=== PATIENT | female | born 1940 | race Caucasian/White ===

== ENCOUNTER 2016-11-27 10:09 | Inpatient (IN) | payer OTHER ==
[~2016-11-27] VITALS: Ht 172.7 cm; Wt 72.0 kg
[~2016-11-27 10:09] MED LIST: ACET-749 PO; ALBU1AER9 INH; CYAN10005 PO; FLUT0.15 NAE; FLVHFA110 INH; HYDR25TA4 PO; MAGN250T3 PO; METO25TA3 PO; OLAN-111 PO; SIME1CHW17 PO; ZINC50TA36 PO
--- NOTE | 2016-11-27 10:33 | EMERGENCY ROOM VISIT NOTE ---
History Report prepared by Conor: Mario Melchor Under the Supervision of: Dr. Kevin Molina D.O. First contact with patient: 10:12 Stated Complaint: FALL History of Present Illness The patient is a 76 year old female who presents to the Emergency Room via EMS with complaints of persistent upper back pain secondary to fall starting a few minutes prior to arrival. She rolled over and fell down the bed in between the night stand and bed. Since then, she has been having back pain. The patient has been unable ambulate as normal. She currently rates a pain intensity of 9/10. She denies fevers, chills, chest pain, or any other complaints. The patient had another fall 3 days ago. She currently has a UTI. She also has a pacemaker. As per family member, her tetanus shot is not up-to-date. Source of History: patient, family Onset: a few minutes prior to arrival Position: back (upper) Symptom Intensity: 9/10 Timing: other (persistent) Associated Symptoms: No chest pain, No chills, No fevers Review of Systems See HPI for pertinent positives and negatives. A total of 10 systems reviewed and were otherwise negative. Past Medical & Surgical Medical Problems: (1) AAA (abdominal aortic aneurysm) (2) Benzodiazepine withdrawal (3) Left flank pain (4) Thoracic aortic aneurysm (5) UTI (urinary tract infection) Family History Patient reports no known family medical history. Social History Smoking Status: Former Smoker Alcohol Use: none Marital Status: Housing Status: lives with family Occupation Status: retired Current/Historical Medications Scheduled Alprazolam (Xanax), 1 MG PO TID Amlodipine (Norvasc), 10 MG PO DAILY Aspirin (Aspirin Chewable), 81 MG PO DAILY Clopidogrel (Plavix), 75 MG PO DAILY Cyanocobalamin (Vitamin B-12), 1,000 MCG PO DAILY Donepezil Hydrochloride (Donepezil Hcl), 1 TAB PO HS Famotidine (Pepcid), 20 MG PO BID Gabapentin (Neurontin), 100 MG PO HS Hydrochlorothiazide (Hctz), 12.5 MG PO DAILY Memantine (Namenda), 5 MG PO DAILY Metoprolol Succinate (Toprol Xl), 25 MG PO BID Mirtazapine (Remeron), 15 MG PO HS Olanzapine (Zyprexa Zydis Odt), 5 MG PO DAILY Oxycodone Immediate Rel Tab (Roxicodone Ir), 5 MG PO Q6H Pravastatin Sodium (Pravachol), 1 TAB PO DAILY Senna/Docusate Sod (Senokot S), 2 TAB PO HS Scheduled PRN Acetaminophen (Tylenol), 500 MG PO UD PRN for Pain Albuterol Sulfate (Proair Respiclick), 2 PUFFS INH Q4 PRN for SOB/Wheezing Lactulose (Chronulac), 5 ML PO for Constipation Allergies Coded Allergies: No Known Allergies (Unverified , 11/27/16) Physical Exam Vital Signs Date Time Temp Pulse Resp B/P Pulse Ox O2 Delivery O2 Flow Rate FiO2 11/27/16 13:44 73 18 133/72 93 Nasal Cannula 2.0 11/27/16 13:40 72 11/27/16 11:50 72 22 132/72 94 Nasal Cannula 2.0 11/27/16 11:27 73 11/27/16 10:18 36.7 80 18 140/63 87 Room Air Physical Exam GENERAL: Patient is well appearing and in no acute distress. HEENT: No acute trauma, normocephalic atraumatic, mucous membranes moist, no nasal congestion, no scleral icterus. Bilateral conjunctival injection. NECK: No stridor, no adenopathy, no meningismus, trachea is midline. LUNGS: No dyspnea. Clear to auscultation and equal bilaterally. No wheeze, no rhonchi. HEART: Regular rate and rhythm. No murmurs, rubs, gallops appreciated. ABDOMEN: Soft, nontender, bowel sounds positive, no masses appreciated, no peritonitis. BACK: No midline tenderness, no CVA tenderness EXTREMITIES: Normal motion all extremities, no tenderness with direct palpation , no cyanosis, no edema. NEUROLOGIC: Alert and oriented, no acute motor or sensory deficits, no focal weakness, cranial nerves grossly intact. SKIN: No rash, no jaundice, no diaphoresis. Medical Decision & Procedures ER Provider Diagnostic Interpretation: X ray results and stated below per my interpretation and radiologist interpretation. CHEST ONE VIEW PORTABLE CLINICAL HISTORY: hypoxia COMPARISON STUDY: 04/26/2016 FINDINGS: The cardiac and mediastinal contours remain stable. There is a left sided dual chamber central venous pacemaker present. There are postsurgical changes of midline sternotomy. There is stable dilatation of the descending thoracic aorta. There is no focal pulmonary consolidation. There is no overt failure. There are no pleural effusions.[ IMPRESSION: 1. Stable aortic dilatation. 2. No evidence of focal pulmonary consolidation. No evidence of overt failure. Electronically signed by: Gaudencio Craig M.D. 11/27/2016 11:22 AM Dictated Date/Time: 11/27/2016 11:[address] results and stated below per my review and radiologist interpretation: CT ANGIOGRAPHY THE CHEST WITHOUT AND WITH CONTRAST CLINICAL HISTORY: Chest pain status post trauma. Known thoracic aneurysm. COMPARISON STUDY: Chest x-ray dated 11/27/2016 FINDINGS: Unenhanced images were obtained to the thorax. Patient was then scanned in a dynamic helical fashion during intravenous administration of 92 cc Optiray 320. SPECT imaging was performed. The thyroid gland is unremarkable in appearance. There are mildly enlarged mediastinal lymph nodes measuring up to 12 mm in diameter. There is no evidence of hilar adenopathy. There are no pulmonary artery filling defects to indicate acute pulmonary embolism. The patient appears be status post a prior aortic aneurysm repair. The a sitting thoracic aortic measures 37 mm. The descending thoracic aorta measures 41 mm in maximal diameter. There are intimal flaps to indicate acute or dissection. Within the abdomen, there is mural thrombus with plaque ulceration. There are no pleural effusions. There is no pneumothorax. There is pulmonary emphysema. There is no focal pulmonary consolidation. There are tree-in-bud opacities within the periphery of the right middle lobe, likely postinflammatory. There are age-indeterminate fractures of the left anterior second through fourth ribs. IMPRESSION: 1. Age-indeterminate nondisplaced fractures of the left second through fourth ribs 2. No evidence of pneumothorax 3. No evidence of mediastinal hematoma 4. 41 mm aneurysm of the thoracic aorta. No evidence of dissection 5. Mildly enlarged mediastinal lymph nodes Electronically signed by: Gaudencio Craig M.D. 11/27/2016 12:54 PM Dictated Date/Time: 11/27/2016 12:[address] OF THE CERVICAL SPINE CLINICAL HISTORY: Neck pain status post trauma COMPARISON STUDY: No previous studies for comparison. CT DOSE: TECHNIQUE: CT scan of the cervical spine was performed from the skull base to the thoracic inlet. Images are reviewed in the axial, sagittal, and coronal planes. IV contrast was not administered for this examination. FINDINGS: The visualized portions of the lung apices reveal no evidence of pneumothorax. The prevertebral soft tissues are normal. No fractures or subluxations are visualized. There are multilevel degenerative changes IMPRESSION: No evidence of acute fracture or traumatic subluxation. Electronically signed by: Gaudencio Craig M.D. 11/27/2016 12:41 PM Dictated Date/Time: 11/27/2016 12:[address] HEAD WITHOUT CONTRAST (CT) CLINICAL HISTORY: Head pain status post head trauma COMPARISON STUDY: No previous studies for comparison. TECHNIQUE: Axial CT of the brain is performed from the vertex to the skull base. IV contrast was not administered for this examination. CT DOSE: 1521.48 mGy.cm FINDINGS: No intra or extra-axial mass lesions are visualized. There is no CT evidence of acute cortical infarction. There is no evidence of midline shift. There is no acute hemorrhage. No calvarial fractures are visualized. There are patchy white matter hypodensities likely on a small vessel basis. There is mild ventricular prominence, likely secondary to volume loss. There is no evidence of acute sinusitis IMPRESSION: No acute intracranial findings Electronically signed by: Gaudencio Craig M.D. 11/27/2016 12:40 PM Dictated Date/Time: 11/27/2016 12:[address] THORACIC SPINE WITHOUT CT DOSE: CLINICAL HISTORY: Thoracic spine pain status post trauma TECHNIQUE: Helical images were acquired in transverse plane. Sagittal and coronal reformatted images were acquired. COMPARISON STUDY: None. FINDINGS: There is aneurysmal dilatation of the descending thoracic aorta (41 mm). No fractures are visualized. There are no traumatic subluxations. No paraspinal masses are evident. There is no pneumothorax. IMPRESSION: 1. No acute fractures or traumatic subluxations 2. Dilatation of the descending thoracic aorta 3. Mildly enlarged mediastinal lymph nodes Electronically signed by: Gaudencio Cragi M.D. 11/27/2016 1:04 PM Dictated Date/Time: 11/27/2016 1:01 PM Laboratory Results 11/27/16 11:20 Red Blood Count 5.04, Mean Corpuscular Volume 83.9, Mean Corpuscular Hemoglobin 27.8, Mean Corpuscular Hemoglobin Concent 33.1, Mean Platelet Volume 9.6, Neutrophils (%) (Auto) 64.5, Lymphocytes (%) (Auto) 22.5, Monocytes (%) (Auto) 10.1, Eosinophils (%) (Auto) 2.0, Basophils (%) (Auto) 0.5, Neutrophils # (Auto ) 6.51, Lymphocytes # (Auto) 2.27, Monocytes # (Auto) 1.02, Eosinophils # (Auto ) 0.20, Basophils # (Auto) 0.05 11/27/16 11:20 Test 11/27/16 10:34 11/27/16 11:20 11/27/16 12:50 Bedside Blood Gas pH (LAB) 7.43 (7.35-7.45) Bedside Blood Gas pCO2 (LAB) 44 mmHg (35-46) Bedside Blood Gas pO2 (LAB) 49 mmHg (80-95) Bedside Blood Gas HCO3 (LAB) 29 meq/L (19-24) Bedside Blood Gas Total CO2 31 mEq/l (24-31) Bedside Blood Gas Base Excess (LAB) 5.0 meq/L (-9-1.8) Bedside Blood Gas O2 Saturation 85.0 % (90-95) White Blood Count 10.09 K/uL (4.8-10.8) Red Blood Count 5.04 M/uL (4.2-5.4) Hemoglobin 14.0 g/dL (12.0-16.0) Hematocrit 42.3 % (37-47) Mean Corpuscular Volume 83.9 fL (80-100) Mean Corpuscular Hemoglobin 27.8 pg (25-34) Mean Corpuscular Hemoglobin Concent 33.1 g/dl (32-36) Platelet Count 298 K/uL (130-400) Mean Platelet Volume 9.6 fL (7.4-10.4) Neutrophils (%) (Auto) 64.5 % Lymphocytes (%) (Auto) 22.5 % Monocytes (%) (Auto) 10.1 % Eosinophils (%) (Auto) 2.0 % Basophils (%) (Auto) 0.5 % Neutrophils # (Auto) 6.51 K/uL (1.4-6.5) Lymphocytes # (Auto) 2.27 K/uL (1.2-3.4) Monocytes # (Auto) 1.02 K/uL (0.11-0.59) Eosinophils # (Auto) 0.20 K/uL (0-0.5) Basophils # (Auto) 0.05 K/uL (0-0.2) RDW Standard Deviation 43.7 fL (36.4-46.3) RDW Coefficient of Variation 14.2 % (11.5-14.5) Immature Granulocyte % (Auto) 0.4 % Immature Granulocyte # (Auto) 0.04 K/uL (0.00-0.02) Anion Gap 7.0 mmol/L (3-11) Est Creatinine Clear Calc Drug Dose 59.9 ml/min Estimated GFR () 84.4 Estimated GFR (Non- 72.8 BUN/Creatinine Ratio 9.5 (10-20) Calcium Level 8.8 mg/dl (8.5-10.1) Phosphorus Level 2.5 mg/dl (2.5-4.9) Magnesium Level 2.5 mg/dl (1.8-2.4) Total Bilirubin 0.5 mg/dl (0.2-1) Direct Bilirubin 0.2 mg/dl (0-0.2) Aspartate Amino Transf (AST/SGOT) 14 U/L (15-37) Alanine Aminotransferase (ALT/SGPT) 20 U/L (12-78) Alkaline Phosphatase 113 U/L (45-117) Total Creatine Kinase 21 U/L (26-192) Troponin I < 0.015 ng/ml (0-0.045) Pro-B-Type Natriuretic Peptide 1375 pg/ml (0-1800) Total Protein 6.7 gm/dl (6.4-8.2) Albumin 3.6 gm/dl (3.4-5.0) Lipase 121 U/L (73-393) Thyroid Stimulating Hormone (TSH) 1.590 uIu/ml (0.300-4.500) Free Thyroxine 1.14 ng/dl (0.80-1.60) Urine Color YELLOW Urine Appearance CLEAR (CLEAR) Urine pH 6.0 (4.5-7.5) Urine Specific [place] 1.012 (1.000-1.030) Urine Protein NEG (NEG) Urine Glucose (UA) NEG (NEG) Urine Ketones NEG (NEG) Urine Occult Blood NEG (NEG) Urine Nitrite NEG (NEG) Urine Bilirubin NEG (NEG) Urine Urobilinogen NEG (NEG) Urine Leukocyte Esterase MODERATE (NEG) Urine WBC (Auto) 10-30 /hpf (0-5) Urine RBC (Auto) 0-4 /hpf (0-4) Urine Hyaline Casts (Auto) 1-5 /lpf (0-5) Urine Epithelial Cells (Auto) >30 /lpf (0-5) Urine Bacteria (Auto) NEG (NEG) Laboratory results as reviewed by me. Medications Administered Medications (Trade) Dose Ordered Sig/Darlyn Route Start Time Stop Time Status Last Admin Dose Admin Sodium Chloride (Nss 500ml) 500 ml @ 999 mls/hr Q31M IV 11/27/16 10:45 12/27/16 10:44 11/27/16 11:49 999 MLS/HR Oxycodone HCl (Roxicodone Immediate Rel Tab) 5 mg NOW STAT PO 11/27/16 11:42 11/27/16 11:43 DC 11/27/16 11:46 5 MG ECG Indication: other (Fall) Rate (beats per minute): 70 Rhythm: other (Ventricular paced rhythm) Findings: other (abnormal EKG) Comparison ECG Date: April 26, 2016 Change: no significant change ED Course 1012: The patient was evaluated in room B11B. A complete history and physical exam was performed. 1045: Sodium Chloride 500 ml @ 999 mls/hr IV 1142: Oxycodone HCl 5 mg PO 1341: Upon reevaluation, the patient is resting comfortably. Discussed results and treatment plan with the patient. She verbalized understanding and agreement with the treatment plan. I discussed the patient's case with Dr. Whyte, from [facility]. The patient will be evaluated for further management. Medical Decision Differential diagnosis: Etiologies such as fracture, dislocation, intra-abdominal, pneumothorax, intrathoracic , intracranial, neurologic, as well as other traumatic pathologies were entertained. Patient is a 76-year-old female who lives by herself who presents after being brought in by her daughter for diffuse body pain. She reports that 3 days ago she had a mechanical fall off of her bed when she rolled over in between the bed and her nightstand. Since that time she was able to get up on her own power and was ambulatory around the house. She denies any loss of consciousness. Significant past medical history for a known thoracic aneurysm, cardiac disease status post bypass, COPD, was reportedly taken off oxygen by her primary care doctor. Not follow-up with financial management. Patient was found to have multiple rib fractures on the left on by CT scanning which included the second rib. It is no mention of pulmonary contusion, however the patient is hypoxic at baseline initial blood gas was taken off oxygen, she reports that she is not on oxygen at home, had previously been on oxygen but has been since removed. Accordingly I feel she should be admitted to the hospital for monitoring of her respiratory status as well as pain control. Consults Time Called: 1340 Consulting Physician[facility] Returned Call: 1341 I discussed the patient's case [facility] Impression Primary Impression: Fall from bed, initial encounter Additional Impressions: [place] eye disease of both eyes Hypokalemia Pain Acute respiratory failure with hypoxia Scribe Attestation The scribes documentation has been prepared under my direction and personally reviewed by me in its entirety. I confirm that the note above accurately reflects all work, treatment, procedures, and medical decision making performed by me. Departure Information Dispostion Being Evaluated By Hospitalist Referrals No Doctor, Assigned (PCP) Problem Qualifiers
[2016-11-27] MEDS ORDERED: SODIUM CHLORIDE 0.9% 500ML 500 ML IV SCH (10:45)
[2016-11-27 10:48] LABS: ISTAT ARTERIAL BLOOD GAS HCO3 29 meq/L (19-24); ISTAT ARTERIAL BLOOD GAS PCO2 44 mmHg (35-46); ISTAT ARTERIAL BLOOD GAS PO2 49 mmHg (80-95); ISTAT ARTERIAL BLOOD GAS pH 7.43 (7.35-7.45); ISTAT CARBON DIOXIDE 31 mEq/l (24-31)
[2016-11-27] MEDS ORDERED: AMLO-114 PO (10:48)
[2016-11-27] MEDS ORDERED: OLAN5TAB3 PO (10:48)
[2016-11-27] MEDS ORDERED: ALPR1TAB3 PO (10:48)
[2016-11-27] MEDS ORDERED: MIRT15TA3 PO (10:48)
[2016-11-27] MEDS ORDERED: LACT10SO17 PO (10:48)
[2016-11-27] MEDS ORDERED: FAMO20TA11 PO (10:48)
[2016-11-27] MEDS ORDERED: GABA-112 PO (10:48)
[2016-11-27] MEDS ORDERED: OPTIRAY 320 IV PRN (11:00)
--- NOTE | 2016-11-27 11:23 | DIAGNOSTIC IMAGING REPORT ---
CHEST ONE VIEW PORTABLE CLINICAL HISTORY: hypoxia COMPARISON STUDY: 04/26/2016 FINDINGS: The cardiac and mediastinal contours remain stable. There is a left sided dual chamber central venous pacemaker present. There are postsurgical changes of midline sternotomy. There is stable dilatation of the descending thoracic aorta. There is no focal pulmonary consolidation. There is no overt failure. There are no pleural effusions.[ IMPRESSION: 1. Stable aortic dilatation. 2. No evidence of focal pulmonary consolidation. No evidence of overt failure. Electronically signed by: Gaudencio Craig M.D. 11/27/2016 11:22 AM Dictated Date/Time: 11/27/2016 11:20 AM
[2016-11-27 11:38] LABS: BASO % 0.5 %; BASO ABS # 0.05 K/uL (0-0.2); COMPLETE YES; HEMATOCRIT 42.3 % (37-47); IG% 0.4 %; LYMPH % 22.5 %; LYMPH ABS # 2.27 K/uL (1.2-3.4); MEAN CELL VOLUME 83.9 fL (80-100); MEAN CORPUSCULAR HEMOGLOBIN 27.8 pg (25-34); MEAN CORPUSCULAR HGB CONC 33.1 g/dl (32-36); MEAN PLATELET VOLUME 9.6 fL (7.4-10.4); MONO % 10.1 %; NEUT % 64.5 %; PLATELET COUNT 298 K/uL (130-400); RED BLOOD COUNT 5.04 M/uL (4.2-5.4); WHITE BLOOD COUNT 10.09 K/uL (4.8-10.8)
[2016-11-27] MEDS ORDERED: OXYCODONE HCL IR 5 MG TAB (IMMEDIATE RELEASE) PO STA (11:42)
[2016-11-27 12:01] LABS: ALT/SGPT 20 U/L (12-78); AST/SGOT 14 U/L (15-37); BLOOD UREA NITROGEN 7 mg/dl (7-18); BUN/CREATININE RATIO 9.5 (10-20); CALCIUM 8.8 mg/dl (8.5-10.1); CARBON DIOXIDE 33 mmol/L (21-32); CHLORIDE 100 mmol/L (98-107); CREATININE 0.78 mg/dl (0.60-1.20); GLUCOSE 96 mg/dl (70-99); MAGNESIUM 2.5 mg/dl (1.8-2.4); POTASSIUM 3.3 mmol/L (3.5-5.1); SODIUM 140 mmol/L (136-145)
[2016-11-27 12:10] LABS: ALKALINE PHOSPHATASE 113 U/L (45-117); PHOSPHORUS 2.5 mg/dl (2.5-4.9)
--- NOTE | 2016-11-27 12:41 | DIAGNOSTIC IMAGING REPORT ---
CT HEAD WITHOUT CONTRAST (CT) CLINICAL HISTORY: Head pain status post head trauma COMPARISON STUDY: No previous studies for comparison. TECHNIQUE: Axial CT of the brain is performed from the vertex to the skull base. IV contrast was not administered for this examination. CT DOSE: 1521.48 mGy.cm FINDINGS: No intra or extra-axial mass lesions are visualized. There is no CT evidence of acute cortical infarction. There is no evidence of midline shift. There is no acute hemorrhage. No calvarial fractures are visualized. There are patchy white matter hypodensities likely on a small vessel basis. There is mild ventricular prominence, likely secondary to volume loss. There is no evidence of acute sinusitis IMPRESSION: No acute intracranial findings Electronically signed by: Gaudencio Craig M.D. 11/27/2016 12:40 PM Dictated Date/Time: 11/27/2016 12:39 PM
--- NOTE | 2016-11-27 12:42 | DIAGNOSTIC IMAGING REPORT ---
CT OF THE CERVICAL SPINE CLINICAL HISTORY: Neck pain status post trauma COMPARISON STUDY: No previous studies for comparison. CT DOSE: TECHNIQUE: CT scan of the cervical spine was performed from the skull base to the thoracic inlet. Images are reviewed in the axial, sagittal, and coronal planes. IV contrast was not administered for this examination. FINDINGS: The visualized portions of the lung apices reveal no evidence of pneumothorax. The prevertebral soft tissues are normal. No fractures or subluxations are visualized. There are multilevel degenerative changes IMPRESSION: No evidence of acute fracture or traumatic subluxation. Electronically signed by: Gaudencio Craig M.D. 11/27/2016 12:41 PM Dictated Date/Time: 11/27/2016 12:40 PM
--- NOTE | 2016-11-27 12:55 | DIAGNOSTIC IMAGING REPORT ---
CT ANGIOGRAPHY THE CHEST WITHOUT AND WITH CONTRAST CLINICAL HISTORY: Chest pain status post trauma. Known thoracic aneurysm. COMPARISON STUDY: Chest x-ray dated 11/27/2016 FINDINGS: Unenhanced images were obtained to the thorax. Patient was then scanned in a dynamic helical fashion during intravenous administration of 92 cc Optiray 320. SPECT imaging was performed. The thyroid gland is unremarkable in appearance. There are mildly enlarged mediastinal lymph nodes measuring up to 12 mm in diameter. There is no evidence of hilar adenopathy. There are no pulmonary artery filling defects to indicate acute pulmonary embolism. The patient appears be status post a prior aortic aneurysm repair. The a sitting thoracic aortic measures 37 mm. The descending thoracic aorta measures 41 mm in maximal diameter. There are intimal flaps to indicate acute or dissection. Within the abdomen, there is mural thrombus with plaque ulceration. There are no pleural effusions. There is no pneumothorax. There is pulmonary emphysema. There is no focal pulmonary consolidation. There are tree-in-bud opacities within the periphery of the right middle lobe, likely postinflammatory. There are age-indeterminate fractures of the left anterior second through fourth ribs. IMPRESSION: 1. Age-indeterminate nondisplaced fractures of the left second through fourth ribs 2. No evidence of pneumothorax 3. No evidence of mediastinal hematoma 4. 41 mm aneurysm of the thoracic aorta. No evidence of dissection 5. Mildly enlarged mediastinal lymph nodes Electronically signed by: Gaudencio Craig M.D. 11/27/2016 12:54 PM Dictated Date/Time: 11/27/2016 12:43 PM
[2016-11-27 13:05] LABS: URINE APPEARANCE CLEAR (CLEAR); URINE BILIRUBIN NEG (NEG); URINE COLOR YELLOW; URINE EPITHELIAL CELL AUTO >30 /lpf (0-5); URINE NITRITE NEG (NEG); URINE SPECIFIC GRAVITY 1.012 (1.000-1.030); UROBILINOGEN NEG (NEG); ZZUR CULT IF INDIC CLEAN CATCH YES
--- NOTE | 2016-11-27 13:05 | DIAGNOSTIC IMAGING REPORT ---
CT THORACIC SPINE WITHOUT CT DOSE: CLINICAL HISTORY: Thoracic spine pain status post trauma TECHNIQUE: Helical images were acquired in transverse plane. Sagittal and coronal reformatted images were acquired. COMPARISON STUDY: None. FINDINGS: There is aneurysmal dilatation of the descending thoracic aorta (41 mm). No fractures are visualized. There are no traumatic subluxations. No paraspinal masses are evident. There is no pneumothorax. IMPRESSION: 1. No acute fractures or traumatic subluxations 2. Dilatation of the descending thoracic aorta 3. Mildly enlarged mediastinal lymph nodes Electronically signed by: Gaudencio Craig M.D. 11/27/2016 1:04 PM Dictated Date/Time: 11/27/2016 1:01 PM
[2016-11-27 13:08] LABS: MANUAL MICROSCOPIC REQUIRED? NO; REVIEW REQ? NO
[2016-11-27 15:00] VITALS: O2SAT 93; Ht 172.7 cm; Wt 72.0 kg
--- NOTE | 2016-11-27 16:53 | History and Physical ---
History & Physical Date & Time of Service: Nov 27, 2016 at 14:42 Chief Complaint: FALL Primary Care Physician: Irene Foster History of Present Illness Source: patient, family The patient is a 76 year old female who presents to the Emergency Room via EMS with complaints of persistent upper back pain secondary to fall starting a few minutes prior to arrival. She rolled over and fell down the bed in between the night stand and bed. Since then, she has been having back pain. The patient has been unable ambulate as normal. She currently rates a pain intensity of 9/10. She denies fevers, chills, chest pain, or any other complaints. The patient had another fall 3 days ago. She currently has a UTI. She also has a pacemaker. As per family member, her tetanus shot is not up-to-date. Tuesday, patient was asleep in bed. She was turning over in her sleep, and didn't realize she was at the edge of her bed and fell landing onto her right side between her bed and dresser (~2ftt space). She was a little sore, but was able to get up, get back onto the bed and go to sleep. Pain persisted through Tuesday and , but patient didn't tell her family, and kept on her regular regimen of pain medication, oxycodone 5mg q6h (around the clock), Zantac 1mg TID (patient followed by pain clinic). She went to the pain clinic on , and did not tell them either. She did mention she was nauseous and was prescribed a Zofran 4mg SL. Has been helpful with resolving nausea. Patient describes the pain as a dull pain, that spans her entire lateral left side from the bottom ribs. Pain rated a 6/10 when its decreased and 9/10 at it' s severest. No radiation. Alleviated by oxycodone with Tylenol in between. Also improved by lying and sitting. Significantly exacerbated by standing and walking. Had headache - resolved no. No chest pain, dyspnea, abdominal pain. No dizziness /lightheadedness. Some nausea in waves, resolved by Zofran. No vomiting. Denies numbness and tinging in extremities. Denies cuts or bruises secondary to fall. No issues with urination, no hematuria. Constipation is long standing. No laurel blood noted. No fevers or chills. No URI symptoms. No issues with appetite, tolerating diet well. Able to sleep but wakes up secondary to pain, at which point she takes medication if it is not too close to her last dose. Previously lived with son, in [place] previously, moved in with daughter 8 months ago. Has had 3 falls in the last 8 months. Daughter says it's related to how she gets out of bed too fast. Has had multiple falls in [place], including syncopal episode after getting up too fast. Past Medical/Surgical History Medical Problems: (1) AAA (abdominal aortic aneurysm) Status: Resolved (2) Benzodiazepine withdrawal Status: Resolved (3) Left flank pain Status: Resolved (4) Thoracic aortic aneurysm Status: Resolved (5) UTI (urinary tract infection) Status: Resolved Family History Patient reports no known family medical history. HTN in son, father, sister. Stroke - daughter at age 51YO No DM, Social History Smoking Status: Former Smoker (Ex-smoker of 9 months, started at age 18, 58 pack year history) Smokeless Tobacco Use: No Alcohol Use: none Drug Use: none Marital Status: Housing status: lives with family Occupational Status: retired Immunizations History of Influenza Vaccine: No History of Tetanus Vaccine?: No History of Pneumococcal: No History of Hepatitis B Vaccine: No Allergies Coded Allergies: No Known Allergies (Unverified , 11/27/16) Home Medications Scheduled Alprazolam (Xanax), 1 MG PO TID Amlodipine (Norvasc), 10 MG PO DAILY Aspirin (Aspirin Chewable), 81 MG PO DAILY Clopidogrel (Plavix), 75 MG PO DAILY Cyanocobalamin (Vitamin B-12), 1,000 MCG PO DAILY Donepezil Hydrochloride (Donepezil Hcl), 1 TAB PO HS Famotidine (Pepcid), 20 MG PO BID Gabapentin (Neurontin), 100 MG PO HS Hydrochlorothiazide (Hctz), 12.5 MG PO DAILY Memantine (Namenda), 5 MG PO DAILY Metoprolol Succinate (Toprol Xl), 25 MG PO BID Mirtazapine (Remeron), 15 MG PO HS Olanzapine (Zyprexa Zydis Odt), 5 MG PO DAILY Oxycodone Immediate Rel Tab (Roxicodone Ir), 5 MG PO Q6H Pravastatin Sodium (Pravachol), 1 TAB PO DAILY Senna/Docusate Sod (Senokot S), 2 TAB PO HS Scheduled PRN Acetaminophen (Tylenol), 500 MG PO UD PRN for Pain Albuterol Sulfate (Proair Respiclick), 2 PUFFS INH Q4 PRN for SOB/Wheezing Lactulose (Chronulac), 5 ML PO for Constipation Review of Systems Constitutional: No chills, No fever, No sweats, No weakness, No weight loss Respiratory: + cough, + dyspnea on exertion, + sputum (yellow), No dyspnea at rest Cardiovascular: No PND, No chest pain, No edema, No orthopnea, No palpitations Abdomen: + constipation, + nausea, No diarrhea, No pain, No vomiting Musculoskeletal: + joint pain (hips bilaterally), + muscle pain Genitourinary - Female: No dysuria, No hematuria, No urinary frequency, No urinary urgency Neurologic: No numbness/tingling Psychiatric: + depression symptoms, No anxiety, No insomnia, No substance abuse Hematologic / Lymphatic: No abnormal bleeding/bruising Integumentary: No color change, No itch, No rash Physical Exam Vital Signs Date Time Temp Pulse Resp B/P Pulse Ox O2 Delivery O2 Flow Rate FiO2 11/27/16 13:44 73 18 133/72 93 Nasal Cannula 2.0 11/27/16 13:40 72 11/27/16 11:50 72 22 132/72 94 Nasal Cannula 2.0 11/27/16 11:27 73 11/27/16 10:18 36.7 80 18 140/63 87 Room Air General Appearance: WD/WN, no apparent distress Head: normocephalic, atraumatic Neck: supple, no JVD Respiratory/Chest: chest non-tender, lungs clear, normal breath sounds, no respiratory distress Cardiovascular: regular rate, rhythm, no edema, no murmur, normal peripheral pulses Abdomen/GI: normal bowel sounds, non tender, soft, no organomegaly Back: + paravertebral tenderness, + pertinent finding (Tenderness diffusely " it hurts everywhere") Extremities/Musculoskelatal: normal inspection, no calf tenderness, no pedal edema Neurologic/Psych: alert, oriented x 3, + depressed affect, + pertinent finding (Withdrawn- doesn't provide as much history either because she doesn't want to or doesn't recall) Skin: normal color, warm/dry, no rash Diagnostics Laboratory Results Results Past 24 Hours Test 11/27/16 10:34 11/27/16 11:20 11/27/16 12:50 Range/Units Bedside Blood Gas pH (LAB) 7.43 7.35-7.45 Bedside Blood Gas pCO2 (LAB) 44 35-46 mmHg Bedside Blood Gas pO2 (LAB) 49 80-95 mmHg Bedside Blood Gas HCO3 (LAB) 29 19-24 meq/L Bedside Blood Gas Total CO2 31 24-31 mEq/l Bedside Blood Gas Base Excess (LAB) 5.0 -9-1.8 meq/L Bedside Blood Gas O2 Saturation 85.0 90-95 % White Blood Count 10.09 4.8-10.8 K/uL Red Blood Count 5.04 4.2-5.4 M/uL Hemoglobin 14.0 12.0-16.0 g/dL Hematocrit 42.3 37-47 % Mean Corpuscular Volume 83.9 80-100 fL Mean Corpuscular Hemoglobin 27.8 25-34 pg Mean Corpuscular Hemoglobin Concent 33.1 32-36 g/dl Platelet Count 298 130-400 K/uL Mean Platelet Volume 9.6 7.4-10.4 fL Neutrophils (%) (Auto) 64.5 % Lymphocytes (%) (Auto) 22.5 % Monocytes (%) (Auto) 10.1 % Eosinophils (%) (Auto) 2.0 % Basophils (%) (Auto) 0.5 % Neutrophils # (Auto) 6.51 1.4-6.5 K/uL Lymphocytes # (Auto) 2.27 1.2-3.4 K/uL Monocytes # (Auto) 1.02 0.11-0.59 K/uL Eosinophils # (Auto) 0.20 0-0.5 K/uL Basophils # (Auto) 0.05 0-0.2 K/uL RDW Standard Deviation 43.7 36.4-46.3 fL RDW Coefficient of Variation 14.2 11.5-14.5 % Immature Granulocyte % (Auto) 0.4 % Immature Granulocyte # (Auto) 0.04 0.00-0.02 K/uL Sodium Level 140 136-145 mmol/L Potassium Level 3.3 3.5-5.1 mmol/L Chloride Level 100 98-107 mmol/L Carbon Dioxide Level 33 21-32 mmol/L Anion Gap 7.0 3-11 mmol/L Blood Urea Nitrogen 7 7-18 mg/dl Creatinine 0.78 0.60-1.20 mg/dl Est Creatinine Clear Calc Drug Dose 59.9 ml/min Estimated GFR () 84.4 Estimated GFR (Non- 72.8 BUN/Creatinine Ratio 9.5 10-20 Random Glucose 96 70-99 mg/dl Calcium Level 8.8 8.5-10.1 mg/dl Phosphorus Level 2.5 2.5-4.9 mg/dl Magnesium Level 2.5 1.8-2.4 mg/dl Total Bilirubin 0.5 0.2-1 mg/dl Direct Bilirubin 0.2 0-0.2 mg/dl Aspartate Amino Transf (AST/SGOT) 14 15-37 U/L Alanine Aminotransferase (ALT/SGPT) 20 12-78 U/L Alkaline Phosphatase 113 45-117 U/L Total Creatine Kinase 21 26-192 U/L Troponin I < 0.015 0-0.045 ng/ml Pro-B-Type Natriuretic Peptide 1375 0-1800 pg/ml Total Protein 6.7 6.4-8.2 gm/dl Albumin 3.6 3.4-5.0 gm/dl Lipase 121 73-393 U/L Thyroid Stimulating Hormone (TSH) 1.590 0.300-4.500 uIu/ml Free Thyroxine 1.14 0.80-1.60 ng/dl Urine Color YELLOW Urine Appearance CLEAR CLEAR Urine pH 6.0 4.5-7.5 Urine Specific [place] 1.012 1.000-1.030 Urine Protein NEG NEG Urine Glucose (UA) NEG NEG Urine Ketones NEG NEG Urine Occult Blood NEG NEG Urine Nitrite NEG NEG Urine Bilirubin NEG NEG Urine Urobilinogen NEG NEG Urine Leukocyte Esterase MODERATE NEG Urine WBC (Auto) 10-30 0-5 /hpf Urine RBC (Auto) 0-4 0-4 /hpf Urine Hyaline Casts (Auto) 1-5 0-5 /lpf Urine Epithelial Cells (Auto) >30 0-5 /lpf Urine Bacteria (Auto) NEG NEG Microbiology Results 11/27/16 Urine Culture, Received Pending No Infiltrate, No Effusion, other (1. Stable aortic dilatation.) Impression Assessment and Plan 76 year old female with cardiac disease s/p bypass, COPD taken off home O2 by PCP, chronic pain, known thoracic aneurysm admitted for mechanical fall 3 days ago with rib fracture and diffuse body pain. Fall - No acute intracranial findings on head CT - Cervical CT: No evidence of acute fracture or traumatic subluxation. - Thoracic CT: No acute fractures or traumatic subluxations. Dilatation of the descending thoracic aorta. Mildly enlarged mediastinal lymph nodes. - This fall is mechanical. Acute on chronic pain - Continue oxycodone 5mg q6H scheduled - Continue Tylenol 500mg q6H PRN pain - Continue gabapentin 100mg HS - Out of bed as tolerated History of falls - Previous falls described as orthostatic in nature - Orthostatic pulse/BP BID - Consult OT/PT - On amlodipine 10mg daily, hydrochlorothiazide 12.5mg daily, metoprolol 25mg BID - Trend BP Nausea - Likely secondary to pain - Zofran 4mg SL Acute hypoxemia on a background of COPD - CXR shows stable aortic dilatation but no evidence of focal pulmonary consoli dation. No evidence of overt failure. - No pulmonary contusion documented on CT, however the patient is hypoxic at baseline initial blood gas off oxygen - Not on oxygen at home, had previously been on oxygen but has been since weaned off by PCP - Continue albuterol inhaler CAD - Continue aspirin 81mg daily, plavix 75mg daily and pravastatin 40mg daily Known aortic aneurysm - CT Chest Angiography: 1. Age-indeterminate nondisplaced fractures of the left second through fourth ribs 2. No evidence of pneumothorax 3. No evidence of mediastinal hematoma 4. 41 mm aneurysm of the thoracic aorta. No evidence of dissection 5. Mildly enlarged mediastinal lymph nodes Depression - Continue Xanax 1mg TID, mirtazipine 15mg HS, olanzapine 5mg daily, Dementia - Continue donepezil 5mg HS and memantine 5mg daily DVT Prophylaxis - Enoxaparin 40mg SQ q24h Resident Physician Supervision Note: I interviewed and examined the patient. Discussed with Dr. Tineo and agree with findings and plan as documented in the note. Any exceptions or clarifications are listed here: None Documented By: Wilver Whyte pain all over. fell out of bed, hurts everywhere. chronically hurts everywhere , doesn't know why she has this chronic pain or what the dx is behind the chronic pain - but knows she has constant chronic pain. seems loosely confused vitals noted, nad fatigued appearing, breathing unlabored, good air entry no r/r /w good effort no chest wall crepitis fall/rib fractures -falls sounding orthostatic > other - check BID orthostatics on home meds, anticipate need to stop amlodipine; check vitamin D and rec outpt DEXA if not recently done since fx seem disproportionate to trauma involved. PT/OT eval and treat as well. no notable focal neuro deficits hypoxia - appearing acute on chronic due to (presumed) COPD - O2/supportive care otherwise as above Level of Care Med/Surg VTE Prophylaxis VTE Risk Assessment Done? Y/N: Yes Risk Level: Moderate Given or contraindicated: SCD's
[2016-11-27 17:00] VITALS: O2SAT 92
[2016-11-27] MEDS ORDERED: ALBUTEROL HFA 8 GM INHALER INH PRN (17:15)
[2016-11-27] MEDS ORDERED: LACTULOSE SYRUP 20 GM/30 ML UDC PO PRN (17:15)
[2016-11-27] MEDS ORDERED: ONDANSETRON 4MG OD TAB PO PRN (17:30)
[2016-11-27] MEDS ORDERED: MAGNESIUM HYDROXIDE SUSP 30 ML UDC PO PRN (17:30)
[2016-11-27] MEDS: OXYCODONE HCL IR 5 MG TAB (IMMEDIATE RELEASE) PO SCH (18:02)
[2016-11-27] MEDS ORDERED: POLYETHYLENE (MIRALAX) 17 GM PACK PO PRN (18:15)
[2016-11-27 18:40] LABS: PARTIAL THROMBOPLASTIN RATIO 1.1; PROTHROMBIN TIME (PATIENT) 10.9 SECONDS (9.0-12.0)
[2016-11-27] MEDS: ENOXAPARIN 40 MG/0.4 ML SYR SQ SCH (20:00)
[2016-11-27] MEDS ORDERED: INFLUENZA VIRUS QUAD VACCINE 0.5 ML SYR IM. ONE (20:00)
[2016-11-27] MEDS ORDERED: INFLUENZA ADMINISTRATION CHARGE ONE (20:00)
[2016-11-27] MEDS: METOPROLOL SUCC 25MG EXT REL TAB PO SCH (20:04)
[2016-11-27] MEDS: MIRTAZAPINE TAB 15 MG TAB PO SCH (20:05)
[2016-11-27] MEDS: DONEPEZIL HCL 5 MG TAB PO SCH (20:05)
[2016-11-27] MEDS: FAMOTIDINE 20 MG TAB PO SCH (20:07)
[2016-11-27] MEDS: ALPRAZOLAM 0.5 MG TAB PO SCH (20:07)
[2016-11-27] MEDS: GABAPENTIN 100 MG CAP PO SCH (20:08)
[2016-11-27] MEDS: DOCUSATE SODIUM/SENNA 50/8.6MG TAB PO SCH (20:08)
[2016-11-27 20:11] VITALS: BP 121/75; PULSE 79
[2016-11-28] VITALS: O2SAT 92
[2016-11-28] MEDS: OXYCODONE HCL IR 5 MG TAB (IMMEDIATE RELEASE) PO SCH ×4 (00:46→17:42)
[2016-11-28] MEDS ORDERED: AMLODIPINE BESYLATE 5 MG TAB PO SCH (08:00)
[2016-11-28 08:56] VITALS: BP_SYST 107; BP_SYST 117; BP_SYST 128; BP_DIAS 73; BP_DIAS 83; PULSE 83; TEMP 36.9; O2SAT 95
[2016-11-28] MEDS: ALPRAZOLAM 0.5 MG TAB PO SCH ×3 (09:05→21:05)
[2016-11-28] MEDS: OLANZAPINE ZYDIS 5 MG ORALLY DIS. TAB PO SCH (09:05)
[2016-11-28] MEDS: FAMOTIDINE 20 MG TAB PO SCH ×2 (09:06→21:11)
[2016-11-28] MEDS: METOPROLOL SUCC 25MG EXT REL TAB PO SCH ×2 (09:06→21:10)
[2016-11-28] MEDS: HYDROCHLOROTHIAZIDE 25 MG TAB PO SCH (09:07)
[2016-11-28] MEDS: CLOPIDOGREL BISULFATE 75 MG TAB PO SCH (09:07)
[2016-11-28] MEDS: MEMANTINE 5 MG TAB PO SCH (09:08)
[2016-11-28] MEDS: ASPIRIN 81 MG ECTAB PO SCH (09:08)
[2016-11-28] MEDS: CYANOCOBALAMIN 500 MCG TAB (VIT B-12) PO SCH (09:09)
[2016-11-28] MEDS: PRAVASTATIN SOD 40 MG TAB PO SCH (09:09)
[2016-11-28] MEDS ORDERED: NURSING DECISION MEDICATION ORDER SCH (13:30)
[2016-11-28] MEDS ORDERED: ERGOCALCIFEROL 50,000 INTER.UNIT CAP PO SCH (14:00)
[2016-11-28] MEDS ORDERED: ARTIFICIAL TEARS OP SOLN OP PRN ×2 (14:30)
[2016-11-28 15:48] VITALS: BP 107/67; PULSE 71; TEMP 37.3; O2SAT 97
--- NOTE | 2016-11-28 16:52 | Family Medicine Progress Note ---
Progress Note Date of Service Nov 28, 2016. Subjective Pt evaluation today including: conversation w/ patient, physical exam, chart review, lab review Patient says she slept well. Her pain is mostly improved, with her current pain rated as 5/10. She is feeling much better with oxygen. Had home 02 on 2L approximately 3 months ago, but it was taken away from her. She is more comfortable with oxygen. Appetite good, tolerated dinner well. Denies headache/ lightheadedness/CP/dyspnea. Even with OT, patient finding it very difficult to ambulate. Constitutional: No chills, No fever Respiratory: No cough, No shortness of breath Cardiovascular: No chest pain, No edema, No orthopnea, No palpitations Abdomen: No constipation, No diarrhea, No nausea, No pain, No vomiting Musculoskeletal: + joint pain (hips) Female : No dysuria Neurologic: + balance problems, + weakness, No numbness/tingling Psychiatric: + problem reported (confusion on history) Objective Vital Signs Date Time Temp Pulse Resp B/P Pulse Ox O2 Delivery O2 Flow Rate FiO2 11/28/16 00:00 92 Nasal Cannula 2.0 11/27/16 20:11 79 121/75 11/27/16 17:00 92 Nasal Cannula 2.0 11/27/16 15:59 75 18 123/78 92 Nasal Cannula 2.0 11/27/16 15:00 93 Nasal Cannula 2.0 11/27/16 13:44 73 18 133/72 93 Nasal Cannula 2.0 11/27/16 13:40 72 11/27/16 11:50 72 22 132/72 94 Nasal Cannula 2.0 11/27/16 11:27 73 11/27/16 10:18 36.7 80 18 140/63 87 Room Air Physical Exam General Appearance: WD/WN, no apparent distress Eyes: PERRL, EOMI, + pertinent finding (Crusting around the eyes, eyes watering , no scleral edema or injection) Neck: supple, no adenopathy Respiratory/Chest: lungs clear, normal breath sounds, no respiratory distress Cardiovascular: regular rate, rhythm, no edema, no murmur Abdomen: normal bowel sounds, non tender, soft Extremities: no pedal edema, no calf tenderness Neurologic/Psychiatric: alert, oriented x 3 Skin: normal color, warm/dry, no rash Laboratory Results Results Past 24 Hours Test 11/27/16 10:34 11/27/16 11:20 11/27/16 12:50 11/27/16 20:24 Range/Units Bedside Blood Gas pH (LAB) 7.43 7.35-7.45 Bedside Blood Gas pCO2 (LAB) 44 35-46 mmHg Bedside Blood Gas pO2 (LAB) 49 80-95 mmHg Bedside Blood Gas HCO3 (LAB) 29 19-24 meq/L Bedside Blood Gas Total CO2 31 24-31 mEq/l Bedside Blood Gas Base Excess (LAB) 5.0 -9-1.8 meq/L Bedside Blood Gas O2 Saturation 85.0 90-95 % White Blood Count 10.09 4.8-10.8 K/uL Red Blood Count 5.04 4.2-5.4 M/uL Hemoglobin 14.0 12.0-16.0 g/dL Hematocrit 42.3 37-47 % Mean Corpuscular Volume 83.9 80-100 fL Mean Corpuscular Hemoglobin 27.8 25-34 pg Mean Corpuscular Hemoglobin Concent 33.1 32-36 g/dl Platelet Count 298 130-400 K/uL Mean Platelet Volume 9.6 7.4-10.4 fL Neutrophils (%) (Auto) 64.5 % Lymphocytes (%) (Auto) 22.5 % Monocytes (%) (Auto) 10.1 % Eosinophils (%) (Auto) 2.0 % Basophils (%) (Auto) 0.5 % Neutrophils # (Auto) 6.51 1.4-6.5 K/uL Lymphocytes # (Auto) 2.27 1.2-3.4 K/uL Monocytes # (Auto) 1.02 0.11-0.59 K/uL Eosinophils # (Auto) 0.20 0-0.5 K/uL Basophils # (Auto) 0.05 0-0.2 K/uL RDW Standard Deviation 43.7 36.4-46.3 fL RDW Coefficient of Variation 14.2 11.5-14.5 % Immature Granulocyte % (Auto) 0.4 % Immature Granulocyte # (Auto) 0.04 0.00-0.02 K/uL Prothrombin Time 10.9 9.0-12.0 SECONDS Prothromb Time International Ratio 1.0 0.9-1.1 Activated Partial Thromboplast Time 29.7 21.0-31.0 SECONDS Partial Thromboplastin Ratio 1.1 Sodium Level 140 136-145 mmol/L Potassium Level 3.3 3.5-5.1 mmol/L Chloride Level 100 98-107 mmol/L Carbon Dioxide Level 33 21-32 mmol/L Anion Gap 7.0 3-11 mmol/L Blood Urea Nitrogen 7 7-18 mg/dl Creatinine 0.78 0.60-1.20 mg/dl Est Creatinine Clear Calc Drug Dose 59.9 ml/min Estimated GFR () 84.4 Estimated GFR (Non- 72.8 BUN/Creatinine Ratio 9.5 10-20 Random Glucose 96 70-99 mg/dl Calcium Level 8.8 8.5-10.1 mg/dl Phosphorus Level 2.5 2.5-4.9 mg/dl Magnesium Level 2.5 1.8-2.4 mg/dl Total Bilirubin 0.5 0.2-1 mg/dl Direct Bilirubin 0.2 0-0.2 mg/dl Aspartate Amino Transf (AST/SGOT) 14 15-37 U/L Alanine Aminotransferase (ALT/SGPT) 20 12-78 U/L Alkaline Phosphatase 113 45-117 U/L Total Creatine Kinase 21 26-192 U/L Troponin I < 0.015 0-0.045 ng/ml Pro-B-Type Natriuretic Peptide 1375 0-1800 pg/ml Total Protein 6.7 6.4-8.2 gm/dl Albumin 3.6 3.4-5.0 gm/dl Lipase 121 73-393 U/L Thyroid Stimulating Hormone (TSH) 1.590 0.300-4.500 uIu/ml Free Thyroxine 1.14 0.80-1.60 ng/dl Urine Color YELLOW Urine Appearance CLEAR CLEAR Urine pH 6.0 4.5-7.5 Urine Specific [place] 1.012 1.000-1.030 Urine Protein NEG NEG Urine Glucose (UA) NEG NEG Urine Ketones NEG NEG Urine Occult Blood NEG NEG Urine Nitrite NEG NEG Urine Bilirubin NEG NEG Urine Urobilinogen NEG NEG Urine Leukocyte Esterase MODERATE NEG Urine WBC (Auto) 10-30 0-5 /hpf Urine RBC (Auto) 0-4 0-4 /hpf Urine Hyaline Casts (Auto) 1-5 0-5 /lpf Urine Epithelial Cells (Auto) >30 0-5 /lpf Urine Bacteria (Auto) NEG NEG 25-Hydroxy Vitamin D Total 7.1 30-100 ng/ml Microbiology Results 11/27/16 Urine Culture - Final, Complete MORE THAN THREE TYPES OF ORGANISMS NC... Assessment and Plan 76 year old female with cardiac disease s/p bypass, COPD taken off home O2 by PCP, chronic pain, known thoracic aneurysm admitted for mechanical fall 3 days ago with rib fracture and diffuse body pain. Fall - No acute intracranial findings on head CT - Cervical CT: No evidence of acute fracture or traumatic subluxation. - Thoracic CT: No acute fractures or traumatic subluxations. Dilatation of the descending thoracic aorta. Mildly enlarged mediastinal lymph nodes. - CT Chest Angiography: Age-indeterminate nondisplaced fractures of the left second through fourth ribs - This fall is mechanical. - However, given rib fracture, check vitamin D levels and recommend outpatient DEXA scan - Patient vitamin D deficient. Started on D2 50,000 units weekly, and D3 2000 units daily Acute on chronic pain - Continue oxycodone 5mg q6H scheduled - Continue Tylenol 500mg q6H PRN pain - Continue gabapentin 100mg HS - Out of bed as tolerated - Consult OT/PT - Had difficulty ambulating with OT secondary to pain ?Spinal stenosis, radiculopathy - Request records from previous hospitals where the patient previously underwent some tests: [facility] and [facility] History of falls - Previous falls described as orthostatic in nature - Orthostatic pulse/BP BID - showed orthostatic changes with position changes - On amlodipine 10mg daily, hydrochlorothiazide 12.5mg daily, metoprolol 25mg BID at home - Amlodipine discontinued - Continue to monitor orthostatic pulse/BP for further med management Water Eyes/crusting around lids - Not pink eye, no contamination precautions necessary - No medication recommended at this time - Cleaning crust with warm damp cloth, patient advised not to rub eyes Nausea - Likely secondary to pain - Zofran 4mg SL PRN Acute hypoxemia on a background of COPD - CXR shows stable aortic dilatation but no evidence of focal pulmonary consolidation. No evidence of overt failure. - No pulmonary contusion documented on CT, however the patient is hypoxic at baseline initial blood gas off oxygen - Not on oxygen at home, had previously been on oxygen but was stopped 3 months ago - Unsure from history with this was planned weaning with PCP or financial factors contributed to discontinuation of O2 - Weaning of O2 may be better assessed/accomplished in SNF care - Continue albuterol inhaler CAD - s/p CABG and insertion of left sided dual chamber central venous pacemaker - Continue aspirin 81mg daily, Plavix 75mg daily and pravastatin 40mg daily Known aortic aneurysm - CT Chest Angiography: 1. Age-indeterminate nondisplaced fractures of the left second through fourth ribs 2. No evidence of pneumothorax 3. No evidence of mediastinal hematoma 4. 41 mm aneurysm of the thoracic aorta. No evidence of dissection 5. Mildly enlarged mediastinal lymph nodes Depression - Continue Xanax 1mg TID, mirtazapine 15mg HS, olanzapine 5mg daily, Dementia - Continue donepezil 5mg HS and memantine 5mg daily DVT Prophylaxis - Enoxaparin 40mg SQ q24h [facility] when ready for discharge from hospital Resident Physician Supervision Note: I interviewed and examined the patient. Discussed with Dr. Tineo and agree with findings and plan as documented in the note. Any exceptions or clarifications are listed here: None Documented By: Wilver Whyte feeling better pain a 03/09. dtr worried about her going home. both pt and dtr amenable to HSR. dtr doesn't know dx for chronic pain either - but notes that she has b/l diffuse leg pain, [facility] [place] - thinks it was vascular evaluations by [facility]. doesn't recall ever having had spine films vitals noted, nad breathing unlabored no accessory muscle use, good effort. no rashes no pallor or icterus a/p fall - appearing to be mostly orthostatic. stop norvasc. may need to run a little higher w baseline BP (given age and frailty, may fit more towards having to allow elevations to prevent orthostasis - follow) rib fx - w D deficiency - likely osteoporosis - replace D, DEXA as outpt, repeat D level ~12wks hypoxia - more than likely chronic hypoxic respiratory failure made worse by rib fx. continue supportive care and O2. had O2 at home before - not entirely clear why she does not at this time - but likely to need again chronic pain - further eval elicits that it seems to be b/l LE - dtr/pt don't think it's simple DJD. ??possibly claudication or pseudoclaudication. [facility] since they're not sure which facility did vascular evals (and if nothing evident then check LE arterial dopplers) and since neither recall Lspine imaging check Lspine xrays (did show what appeared to be mild DJD on march CT abd/pelvis - but was not dedicated spine films) DVT proph - lovenox otherwise as above Continued [facility] stay due to: home environment unsafe for pt
[2016-11-28 17:22] VITALS: BP_SYST 121; BP_SYST 131; BP_SYST 136; BP_DIAS 78; BP_DIAS 84; PULSE 73; TEMP 36.6; O2SAT 94
--- NOTE | 2016-11-28 19:33 | DIAGNOSTIC IMAGING REPORT ---
LUMBAR SPINE 2 OR 3 VIEWS CLINICAL HISTORY: b/l leg pain, weakness - ?spinal stenosis pain. Neuropathy. COMPARISON STUDY: None FINDINGS: Mild degenerative intervertebral disc change throughout. Mild scoliosis. Vertebral body stature is normal. No evidence for compression deformity. Multiple pelvic and lower abdominal retroperitoneal surgical clips. IMPRESSION: Mild degenerative change. Mild scoliosis. Electronically signed by: Diego Calderon M.D. 11/28/2016 7:32 PM Dictated Date/Time: 11/28/2016 7:31 PM
[2016-11-28 21:02] VITALS: BP 133/80; PULSE 84; TEMP 36.6; O2SAT 92
[2016-11-28] MEDS: ACETAMINOPHEN 500 MG TAB PO PRN ×2 (21:06→23:31)
[2016-11-28] MEDS: DONEPEZIL HCL 5 MG TAB PO SCH (21:10)
[2016-11-28] MEDS: DOCUSATE SODIUM/SENNA 50/8.6MG TAB PO SCH (21:11)
[2016-11-28] MEDS: ENOXAPARIN 40 MG/0.4 ML SYR SQ SCH (21:11)
[2016-11-28] MEDS: GABAPENTIN 100 MG CAP PO SCH (21:12)
[2016-11-28] MEDS: MIRTAZAPINE TAB 15 MG TAB PO SCH (21:12)
[2016-11-29] VITALS: O2SAT 92
[2016-11-29] MEDS: OXYCODONE HCL IR 5 MG TAB (IMMEDIATE RELEASE) PO SCH ×4 (05:19→17:43)
[2016-11-29 08:00] VITALS: BP_SYST 114; BP_SYST 127; BP_SYST 130; BP_DIAS 69; BP_DIAS 81; BP_DIAS 85; PULSE 63; PULSE 65; TEMP 36.8; O2SAT 95
[2016-11-29] MEDS ORDERED: CHOLECALCIFEROL 1000 INTER.UNIT TAB PO SCH (08:00)
[2016-11-29] MEDS: HYDROCHLOROTHIAZIDE 25 MG TAB PO SCH (09:10)
[2016-11-29] MEDS: ASPIRIN 81 MG ECTAB PO SCH (09:10)
[2016-11-29] MEDS: CYANOCOBALAMIN 500 MCG TAB (VIT B-12) PO SCH (09:11)
[2016-11-29] MEDS: FAMOTIDINE 20 MG TAB PO SCH (09:11)
[2016-11-29] MEDS: PRAVASTATIN SOD 40 MG TAB PO SCH (09:11)
[2016-11-29] MEDS: CLOPIDOGREL BISULFATE 75 MG TAB PO SCH (09:11)
[2016-11-29] MEDS: MEMANTINE 5 MG TAB PO SCH (09:11)
[2016-11-29] MEDS: METOPROLOL SUCC 25MG EXT REL TAB PO SCH (09:11)
[2016-11-29] MEDS: ALPRAZOLAM 0.5 MG TAB PO SCH ×2 (09:12→14:26)
[2016-11-29] MEDS: OLANZAPINE ZYDIS 5 MG ORALLY DIS. TAB PO SCH (09:12)
[2016-11-29 09:47] LABS: BUN/CREATININE RATIO 11.1 (10-20); CALCIUM 8.7 mg/dl (8.5-10.1); CREATININE 0.73 mg/dl (0.60-1.20); POTASSIUM 3.8 mmol/L (3.5-5.1)
[2016-11-29] MEDS: ACETAMINOPHEN 500 MG TAB PO PRN (10:51)
[2016-11-29 14:16] VITALS: O2SAT 92
[2016-11-29] MEDS ORDERED: VTMD1000 PO (15:05)
--- NOTE | 2016-11-29 15:12 | Discharge Instructions ---
Discharge Instructions Admission Reason for Admission: Fall From Bed, Initial Encounter Discharge Discharge Diagnosis / Problem: Mechanical Fall, Rid fractures, COPD exacerbation, Chronic Pain Discharge Goals Goal(s): Decrease discomfort, Improve function, Diagnostic testing Activity Recommendations Activity Level: Assistance Required Therapies: Physical Therapy, Occupational Therapy Lifting Limitations: gradually increase as tolerated Exercise/Sports Limitations: as tolerated Shower/Bathe: no limitations . Additional Information Patient informed of condition: Yes Advance Directives: No DNR: No Level of Care: Acute Rehab Communicable Disease: No Prognosis: Improving Oxygen at (LPM): Yes, requiring ~2 L. [place]illo Catheter: No Instructions / Follow-Up Instructions / Follow-Up Mechanical fall with rib fractures- PT/OT Discontinue Amlodipine due to orthostatic hypotension. Okay to maintain slightly higher blood pressures 130-140 Systolic Vit D Deficiency- 1000 mg PO daily COPD exacerbation: Requires supplemental O2 (rib fractures is likely contributing as well) Follow up with PCP on discharge Current Hospital Diet Patient's current hospital diet: Regular Diet Discharge Diet Recommended Diet: Regular Diet Fluid Restriction: 2000 ml (8 cups) Pending Studies Studies pending at discharge: no Medical Emergencies . Who to Call and When: Medical Emergencies: If at any time you feel your situation is an emergency, please call 911 immediately. . Non-Emergent Contact Non-Emergency issues call your: Primary Care Provider . . "Provider Documentation" section prepared by Angela Schuler. Core Measure Problem Core Measures: None
[2016-11-29 15:33] VITALS: BP_SYST 113; BP_SYST 118; BP_SYST 131; BP_DIAS 67; BP_DIAS 72; BP_DIAS 74; PULSE 68; PULSE 69; TEMP 36.7; O2SAT 96
--- NOTE | 2016-11-29 15:33 | Discharge Summary ---
Discharge Summary Admission Date: Nov 27, 2016 at 13:54 Discharge Date: Nov 29, 2016 Discharge Disposition: Rehab Principal Diagnosis: Mechanical Fall Problems/Secondary Diagnoses: Orthostatic Hypotension Acute on Chronic Pain Hypoxemia w/ h/o COPD Immunizations: Have You Had Influenza Vaccine: No History of Tetanus Vaccine?: No History of Pneumococcal: No History of Hepatitis B Vaccine: No Procedures: CT THORACIC SPINE WITHOUT CT DOSE: CLINICAL HISTORY: Thoracic spine pain status post trauma TECHNIQUE: Helical images were acquired in transverse plane. Sagittal and coronal reformatted images were acquired. COMPARISON STUDY: None. FINDINGS: There is aneurysmal dilatation of the descending thoracic aorta (41 mm). No fractures are visualized. There are no traumatic subluxations. No paraspinal masses are evident. There is no pneumothorax. IMPRESSION: 1. No acute fractures or traumatic subluxations 2. Dilatation of the descending thoracic aorta 3. Mildly enlarged mediastinal lymph nodes CT HEAD WITHOUT CONTRAST (CT) CLINICAL HISTORY: Head pain status post head trauma COMPARISON STUDY: No previous studies for comparison. TECHNIQUE: Axial CT of the brain is performed from the vertex to the skull base. IV contrast was not administered for this examination. CT DOSE: 1521.48 mGy.cm FINDINGS: No intra or extra-axial mass lesions are visualized. There is no CT evidence of acute cortical infarction. There is no evidence of midline shift. There is no acute hemorrhage. No calvarial fractures are visualized. There are patchy white matter hypodensities likely on a small vessel basis. There is mild ventricular prominence, likely secondary to volume loss. There is no evidence of acute sinusitis IMPRESSION: No acute intracranial findings CHEST ONE VIEW PORTABLE CLINICAL HISTORY: hypoxia COMPARISON STUDY: 04/26/2016 FINDINGS: The cardiac and mediastinal contours remain stable. There is a left sided dual chamber central venous pacemaker present. There are postsurgical changes of midline sternotomy. There is stable dilatation of the descending thoracic aorta. There is no focal pulmonary consolidation. There is no overt failure. There are no pleural effusions.[ IMPRESSION: 1. Stable aortic dilatation. 2. No evidence of focal pulmonary consolidation. No evidence of overt failure. CT OF THE CERVICAL SPINE CLINICAL HISTORY: Neck pain status post trauma COMPARISON STUDY: No previous studies for comparison. CT DOSE: TECHNIQUE: CT scan of the cervical spine was performed from the skull base to the thoracic inlet. Images are reviewed in the axial, sagittal, and coronal planes. IV contrast was not administered for this examination. FINDINGS: The visualized portions of the lung apices reveal no evidence of pneumothorax. The prevertebral soft tissues are normal. No fractures or subluxations are visualized. There are multilevel degenerative changes IMPRESSION: No evidence of acute fracture or traumatic subluxation. CT Dissection: IMPRESSION: 1. Age-indeterminate nondisplaced fractures of the left second through fourth ribs 2. No evidence of pneumothorax 3. No evidence of mediastinal hematoma 4. 41 mm aneurysm of the thoracic aorta. No evidence of dissection 5. Mildly enlarged mediastinal lymph nodes LUMBAR SPINE 2 OR 3 VIEWS CLINICAL HISTORY: b/l leg pain, weakness - ?spinal stenosis pain. Neuropathy. COMPARISON STUDY: None FINDINGS: Mild degenerative intervertebral disc change throughout. Mild scoliosis. Vertebral body stature is normal. No evidence for compression deformity. Multiple pelvic and lower abdominal retroperitoneal surgical clips. IMPRESSION: Mild degenerative change. Mild scoliosis. (Angela Gilliam MD) Medication Reconciliation New Medications: Cholecalciferol (Vitamin D3) 1,000 Inter.unit Tab 1000 INTER.UNIT PO QAM, #30 TAB Continued Medications: Acetaminophen (Tylenol) 500 Mg Tab 500 MG PO UD PRN for Pain, TAB Albuterol Sulfate (Proair Respiclick) 108 Mcg/Act Aer 2 PUFFS INH Q4 PRN for SOB/Wheezing Alprazolam (Xanax) 1 Mg Tab 1 MG PO TID, TAB Aspirin (Aspirin Chewable) 81 Mg Chew 81 MG PO DAILY Clopidogrel (Plavix) 75 Mg Tab 75 MG PO DAILY, TAB Cyanocobalamin (Vitamin B-12) 1,000 Mcg Tab 1000 MCG PO DAILY, TAB Donepezil Hydrochloride (Donepezil Hcl) 5 Mg Tab 1 TAB PO HS for 30 Days, TAB 5 Refills Famotidine (Pepcid) 20 Mg Tab 20 MG PO BID, TAB Gabapentin (Neurontin) 100 Mg Cap 100 MG PO HS, CAP Hydrochlorothiazide (Hctz) 25 Mg Tab 12.5 MG PO DAILY, TAB Lactulose (Chronulac) 10 Gm/15 Ml Syrp 5 ML PO PRN for Constipation Memantine (Namenda) 5 Mg Tab 5 MG PO DAILY, TAB Metoprolol Succinate (Toprol Xl) 25 Mg Tabcr 25 MG PO BID, #30 TAB Mirtazapine (Remeron) 15 Mg Tab 15 MG PO HS, TAB Olanzapine (Zyprexa Zydis Odt) 5 Mg Thierry 5 MG PO DAILY, THIERRY Oxycodone Immediate Rel Tab (Roxicodone Ir) 5 Mg Tab 5 MG PO Q6H, TAB Pravastatin Sodium (Pravachol) 40 Mg Tab 1 TAB PO DAILY for 90 Days, #90 TAB 3 Refills Senna/Docusate Sod (Senokot S) 1 Tab Tab 2 TAB PO HS, TAB Discontinued Medications: Amlodipine (Norvasc) 10 Mg Tab 10 MG PO DAILY, TAB Discharge Exam This is a pleasant 76 year old female with cardiac disease s/p bypass, COPD taken off home O2 by PCP, chronic pain, known thoracic aneurysm admitted for mechanical fall with nondisplaced rib fracture (left 2nd to 4th) and diffuse body pain. No evidence of dissection on Imaging. She does have a history of falls and was found to be orthostatic here. Her blood pressure medications were adjusted accordingly and she was no longer orthostatic. She was also found to be Vit. D deficient and was started on supplementation. Also recommend DEXA outpatient. While here, she was found to be hypoxemic and though she has a h/o of COPD, this was likely secondary to her Rib fractures. Her O2 was weaned off eventually. O2 Requirement can be reassessed at [facility] and by PCP as home use was reportedly discontinued 3 months ago. She was complaining of worsening of chronic body pain that was relatively well controlled with a pain medication regimen. Lumbar Xray was non-contributory. Outside records were not able to be obtained; this may be worth reviewing by PCP if patient continues to have pain that can't be controlled. PT/OT were consulted and recommended Rehab placement. All other acute/chronic conditions were managed appropriately. Review of Systems: Constitutional: No chills, No fever Eyes: No worsening of vision Respiratory: No cough, No dyspnea at rest, No dyspnea on exertion, No shortness of breath, No sputum, No wheezing Cardiovascular: No chest pain Abdomen: No nausea, No pain, No vomiting Genitourinary - Female: No dysuria, No urinary frequency, No urinary urgency Physical Exam: General Appearance: no apparent distress Eyes: PERRL, EOMI ENT: hearing grossly normal Neck: supple Respiratory/Chest: lungs clear, normal breath sounds, no respiratory distress, no accessory muscle use, + pertinent finding Cardiovascular: regular rate, rhythm, no edema, no murmur Abdomen / GI: normal bowel sounds, non tender, soft Extremities: no calf tenderness, normal capillary refill, no pedal edema Neurologic/Psychiatric: no motor/sensory deficits, alert, + depressed affect (Angela Gilliam MD) Hospital Course Total Time Spent: Greater than 30 minutes This includes examination of the patient, discharge planning, medication reconciliation, and communication with other providers. (Angela Gilliam MD) Total Time Spent: Greater than 30 minutes (Noé Zendejas MD) Discharge Instructions Please refer to the electronic Patient Visit Report (Discharge Instructions) for additional information. (Angela Gilliam MD) Follow-Up PCP in 3-5 days (Angela Gilliam MD) History Resident Supervision Note: was present with Dr. Gilliam during the history and exam. I discussed the case with the resident and agree with the findings and plan as documented in the note. Any exceptions or clarifications are listed here. Pt seen and examined at bedside. Minimal pain in the region of the left flank stable from previous. Breathing well without discomfort. Reports no lightheadedness since d/c amlodipine. Reports no headache, vision/hearing changes, n/t/w, nausea. (Noé Zendejas MD) General Appearance: WD/WN, no apparent distress Respiratory: chest non-tender, lungs clear, normal breath sounds, no respiratory distress Cardiovascular: normal peripheral pulses, regular rate, rhythm, no edema, no murmur (Noé Zendejas MD) Assessment/Plan 76 y/o female h/o CAD s/p bypass, chronic hypoxia, chronic b/l LE pain s/p mechanical v. orthostatic fall Fall - [facility] for further PT and recovery, amlodipine discontinued HTN - monitor BP as outpatient, would use 150/90 threshold for control Rib fracture - vit D supplementation, DEXA rec'd as outpatient, monitor for splinting Hypoxia - previous home O2 requirement, would resume at [facility] and wean as able Chronic b/l LE pain - L-spine XR w/o apparent contribution, would strongly recommend collection and review of records as outpatient. (Noé Zendejas MD)
[2016-11-29 16:53] VITALS: BP 131/74; PULSE 69; TEMP 36.7; O2SAT 96
[2017-06-03] MEDS ORDERED: PSYL58.636 PO (01:32)
[2017-06-03] MEDS ORDERED: DICL-201 PO (01:36)
[2017-06-03] MEDS ORDERED: HYDR12.55 PO (01:37)
[2017-06-03] MEDS ORDERED: CHOL20007 PO (01:39)
[2017-06-03] MEDS ORDERED: BISA1TAB15 PO (01:41)
[2017-06-03] MEDS ORDERED: FAMO1TAB68 PO (01:47)
[2017-06-03] MEDS ORDERED: AMLO10TA2 PO (08:35)
[2017-06-03] MEDS ORDERED: METO50TA16 PO (08:35)
[2017-06-03] MEDS ORDERED: MIRT15TA2 PO (08:35)
[2017-06-03] MEDS ORDERED: CLOP1TAB15 PO (10:48)
[2017-06-03] MEDS ORDERED: ALBU18002 INH (10:48)
[2017-06-03] MEDS ORDERED: OXYC1TAB3 PO (10:48)
[2017-06-03] MEDS ORDERED: NMN5 PO (10:48)
[2017-06-03] MEDS ORDERED: DONE1TAB11 PO (10:48)
[2017-06-03] MEDS ORDERED: ASPCH81X PO (10:48)
[2017-06-03] MEDS ORDERED: ACET-1256 PO (12:36)
[2017-06-03] MEDS ORDERED: PRAV40TA PO (12:36)
[2017-06-03] MEDS ORDERED: SENN-65 PO (12:36)
== END 2016-11-29 18:00 | DRG 543 ==
LOC: ENRESERVTM → ENRESERVDT → EDBD 10:09 → C.EDB 10:10 → C.MS4W 13:54 → EDBEDREQ 14:59
PROVIDERS: ADMIT Family Medicine; ATTEND Family Medicine
DX: M84.48XA Pathological fracture, other site, initial encounter for fracture (principal); N39.0 Urinary tract infection, site not specified; Z95.0 Presence of cardiac pacemaker; I71.2 Thoracic aortic aneurysm, without rupture; E87.6 Hypokalemia; H10.029 Other mucopurulent conjunctivitis, unspecified eye; Z87.891 Personal history of nicotine dependence; Z95.5 Presence of coronary angioplasty implant and graft; R09.02 Hypoxemia; J44.9 Chronic obstructive pulmonary disease, unspecified; R11.0 Nausea; I25.10 Atherosclerotic heart disease of native coronary artery without angina pectoris; F32.9 Major depressive disorder, single episode, unspecified; I95.1 Orthostatic hypotension; W06.XXXA Fall from bed, initial encounter; Y92.003 Bedroom of unspecified non-institutional (private) residence as the place of occurrence of the external cause

== ENCOUNTER 2017-02-22 12:07 | Emergency (ER) | payer OTHER ==
[~2017-02-22] VITALS: Ht 170.2 cm; Wt 73.5 kg
[~2017-02-22 12:07] MED LIST changes: -ACET-749 PO; -ALBU1AER9 INH; +ALPR1TAB3 PO; +FAMO20TA11 PO; -FLUT0.15 NAE; -FLVHFA110 INH; +GABA-112 PO; +LACT10SO17 PO; -MAGN250T3 PO; +MIRT15TA3 PO; -OLAN-111 PO; +OLAN5TAB3 PO; -SIME1CHW17 PO; +VTMD1000 PO; -ZINC50TA36 PO
[2017-02-22 12:13] VITALS: TEMP 37.1; Ht 170.2 cm; Wt 73.5 kg
--- NOTE | 2017-02-22 12:46 | EMERGENCY ROOM VISIT NOTE ---
History Report prepared by Conor: Mario Melchor Under the Supervision of: Dr. Junior Berry D.O. First contact with patient: 12:12 Chief Complaint: OTHER COMPLAINT Stated Complaint: DIAPHORESIS History of Present Illness The patient is a 76 year old female who presents to the Emergency Room via BLS with complaints of severe diaphoresis starting this morning. She also complains of a headache, runny nose, cough, constipation, weakness, and shakiness. Similar symptoms had occurred 3 days ago which had resolved. She called EMS today when she had an onset of her symptoms again this morning. She wears 2 L of oxygen at home. The patient denies fevers, chest pain, shortness of breath, abdominal pain, urinary symptoms, or any other complaints. She did not receive her flu shot this year. She has chronic lower extremity pain. As per daughter, she did not have any recent changes in medications. She denies any history of myocardial infarction. She has a history of aneurysm and UTI. She also had a heart catheterization a few months ago. She has a pacemaker in place. The patient quit smoking about 9 months. Source of History: patient, family Onset: this morning Position: other (global) Symptom Intensity: severe Quality: other (diaphoresis) Associated Symptoms: + cough, + headache, No SOB, No abdominal pain, No chest pain, No fevers, No urinary symptoms Review of Systems See HPI for pertinent positives & negatives. A total of 10 systems reviewed and were otherwise negative. Past Medical & Surgical Medical Problems: (1) AAA (abdominal aortic aneurysm) (2) Benzodiazepine withdrawal (3) Left flank pain (4) Thoracic aortic aneurysm (5) UTI (urinary tract infection) Family History Patient reports no known family medical history. Social History Smoking Status: Former Smoker Alcohol Use: none Drug Use: none Marital Status: Housing Status: lives with family Occupation Status: retired Current/Historical Medications Scheduled Alprazolam (Xanax), 1 MG PO TID Aspirin (Aspirin Chewable), 81 MG PO DAILY Cholecalciferol (Vitamin D3), 1,000 INTER.UNIT PO QAM Clopidogrel (Plavix), 75 MG PO DAILY Cyanocobalamin (Vitamin B-12), 1,000 MCG PO DAILY Donepezil Hydrochloride (Donepezil Hcl), 1 TAB PO HS Famotidine (Pepcid), 20 MG PO BID Gabapentin (Neurontin), 100 MG PO HS Hydrochlorothiazide (Hctz), 12.5 MG PO DAILY Memantine (Namenda), 5 MG PO DAILY Metoprolol Succinate (Toprol Xl), 25 MG PO BID Oxycodone Immediate Rel Tab (Roxicodone Ir), 5 MG PO Q6H Polyethylene Glycol 3350 (Miralax), 17 GM PO DAILY Pravastatin Sodium (Pravachol), 1 TAB PO DAILY Senna/Docusate Sod (Senokot S), 2 TAB PO HS Scheduled PRN Acetaminophen (Tylenol), 500 MG PO UD PRN for Pain Albuterol Sulfate (Proair Respiclick), 2 PUFFS INH Q4 PRN for SOB/Wheezing Lactulose (Chronulac), 5 ML PO for Constipation Allergies Coded Allergies: No Known Allergies (Unverified , 11/27/16) Physical Exam Vital Signs Date Time Temp Pulse Resp B/P Pulse Ox O2 Delivery O2 Flow Rate FiO2 02/22/17 16:46 96 18 145/95 99 Room Air 02/22/17 15:30 78 18 144/83 98 Room Air 02/22/17 13:52 70 18 143/74 99 Room Air 02/22/17 13:19 77 02/22/17 12:13 37.1 88 18 165/76 98 Nasal Cannula 2.0 Physical Exam GENERAL: Patient is awake, alert, and in no acute distress. Patient is resting comfortably and showing no signs of anxiety EYES: The conjunctivae are clear. The pupils are round and reactive. EARS, NOSE, MOUTH AND THROAT: The nose is without any evidence of any deformity. Mucous membranes are moist tongue is midline NECK: The neck is nontender and supple. RESPIRATORY: Normal respiratory effort is noted there is no evidence of wheezing rhonchi or rales CARDIOVASCULAR: Regular rate and rhythm noted there no murmurs rubs or gallops normal S1 normal S2 GASTROINTESTINAL: The abdomen moderately distended but soft. Bowel sounds are present in all quadrants. Abdomen is nontender. There is no specific guarding or rigidity. MUSCULOSKELETAL/EXTREMITIES: There is no evidence of gross deformity full range of motion is noted in the hips and shoulders SKIN: There is no obvious evidence of any rash. There are no petechiae, pallor or cyanosis noted. Trace pedal edema bilaterally. NEUROLOGIC: Patient is awake alert and oriented x3 strength is symmetric patellar reflexes are 2+ bilaterally Medical Decision & Procedures ER Provider Diagnostic Interpretation: X-ray results as stated below per interpretation by me and the radiologist. KUB HISTORY: constipation COMPARISON: Abdomen and pelvis CT 04/26/2016. FINDINGS: Large amount of well-formed stool seen throughout the colon. Soft tissue density within the deep pelvis favors the mildly distended bladder. Multiple surgical clips seen within the lower abdomen and pelvis. No dilated loops of small bowel to suggest an obstruction. No renal calculi. No ureteral calculi. No pneumoperitoneum or pneumatosis. IMPRESSION: Large amount of well-formed stool seen throughout the colon. No evidence for bowel obstruction. Electronically signed by: Timoteo Shaffer M.D. 02/22/2017 12:55 PM Dictated Date/Time: 02/22/2017 12:53 PM SINGLE VIEW CHEST CLINICAL HISTORY: Generalized abdominal pain. FINDINGS: 2 AP, portable, upright chest radiographs are compared to study dated 11/27/2016. Correlation is made with abdominal CT dated 04/05/2016. The examination is degraded by portable technique and patient rotation. A 2-lead cardiac pacemaker is unchanged in position and partially obscures the left upper chest. The patient is status post midline sternotomy. The heart is mildly enlarged and there is atherosclerotic calcification of the thoracic aorta. Aneurysmal dilatation of the descending thoracic aorta is again seen. The pulmonary vasculature is noncongested. Emphysematous changes are again noted. There is mild elevation of the right hemidiaphragm and right basilar atelectasis. Apical scarring is observed. Chronic interstitial thickening is similar to previous. No airspace consolidation, pleural effusion, or pneumothorax is seen. The skeletal structures are osteopenic. There are healed left-sided rib fractures. IMPRESSION: 1. Cardiomegaly and cardiac pacemaker. There is no radiographic evidence of congestive failure. 2. Emphysema. 3. No airspace consolidation or pleural effusion is identified. Electronically signed by: Noble Higgins M.D. 02/22/2017 12:54 PM Dictated Date/Time: 02/22/2017 12:53 PM Laboratory Results 02/22/17 13:10 Red Blood Count 4.85, Mean Corpuscular Volume 84.5, Mean Corpuscular Hemoglobin 28.2, Mean Corpuscular Hemoglobin Concent 33.4, Mean Platelet Volume 8.9, Neutrophils (%) (Auto) 66.2, Lymphocytes (%) (Auto) 23.1, Monocytes (%) (Auto) 8.3, Eosinophils (%) (Auto) 1.7, Basophils (%) (Auto) 0.5, Neutrophils # (Auto) 6.64, Lymphocytes # (Auto) 2.32, Monocytes # (Auto) 0.83, Eosinophils # (Auto) 0.17, Basophils # (Auto) 0.05 02/22/17 13:10 Test 02/22/17 12:19 02/22/17 13:03 02/22/17 13:10 02/22/17 14:50 Bedside Glucose 96 mg/dl (70-90) Influenza Type A (RT-PCR) Neg for Influ A (NEG) Influenza Type A Antigen Neg for Influ A (NEG) Influenza Type B Antigen Neg for Influ B (NEG) Influenza Type B (RT-PCR) Neg for Influ B (NEG) White Blood Count 10.03 K/uL (4.8-10.8) Red Blood Count 4.85 M/uL (4.2-5.4) Hemoglobin 13.7 g/dL (12.0-16.0) Hematocrit 41.0 % (37-47) Mean Corpuscular Volume 84.5 fL (80-100) Mean Corpuscular Hemoglobin 28.2 pg (25-34) Mean Corpuscular Hemoglobin Concent 33.4 g/dl (32-36) Platelet Count 295 K/uL (130-400) Mean Platelet Volume 8.9 fL (7.4-10.4) Neutrophils (%) (Auto) 66.2 % Lymphocytes (%) (Auto) 23.1 % Monocytes (%) (Auto) 8.3 % Eosinophils (%) (Auto) 1.7 % Basophils (%) (Auto) 0.5 % Neutrophils # (Auto) 6.64 K/uL (1.4-6.5) Lymphocytes # (Auto) 2.32 K/uL (1.2-3.4) Monocytes # (Auto) 0.83 K/uL (0.11-0.59) Eosinophils # (Auto) 0.17 K/uL (0-0.5) Basophils # (Auto) 0.05 K/uL (0-0.2) RDW Standard Deviation 42.9 fL (36.4-46.3) RDW Coefficient of Variation 14.0 % (11.5-14.5) Immature Granulocyte % (Auto) 0.2 % Immature Granulocyte # (Auto) 0.02 K/uL (0.00-0.02) Prothrombin Time 10.7 SECONDS (9.0-12.0) Prothromb Time International Ratio 1.0 (0.9-1.1) Activated Partial Thromboplast Time 25.4 SECONDS (21.0-31.0) Partial Thromboplastin Ratio 1.0 Anion Gap 5.0 mmol/L (3-11) Est Creatinine Clear Calc Drug Dose 53.7 ml/min Estimated GFR () 77.2 Estimated GFR (Non- 66.6 BUN/Creatinine Ratio 14.0 (10-20) Calcium Level 8.8 mg/dl (8.5-10.1) Total Bilirubin 0.5 mg/dl (0.2-1) Direct Bilirubin 0.1 mg/dl (0-0.2) Aspartate Amino Transf (AST/SGOT) 12 U/L (15-37) Alanine Aminotransferase (ALT/SGPT) 19 U/L (12-78) Alkaline Phosphatase 94 U/L (45-117) Total Creatine Kinase 30 U/L (26-192) Creatine Kinase MB 0.7 ng/ml (0.5-3.6) Creatine Kinase MB Ratio 2.3 (0-3.0) Troponin I < 0.015 ng/ml (0-0.045) Total Protein 7.7 gm/dl (6.4-8.2) Albumin 4.2 gm/dl (3.4-5.0) Lipase 136 U/L (73-393) Urine Color YELLOW Urine Appearance CLEAR (CLEAR) Urine pH 7.5 (4.5-7.5) Urine Specific Greig 1.008 (1.000-1.030) Urine Protein NEG (NEG) Urine Glucose (UA) NEG (NEG) Urine Ketones NEG (NEG) Urine Occult Blood NEG (NEG) Urine Nitrite NEG (NEG) Urine Bilirubin NEG (NEG) Urine Urobilinogen NEG (NEG) Urine Leukocyte Esterase SMALL (NEG) Urine WBC (Auto) 1-5 /hpf (0-5) Urine RBC (Auto) 0-4 /hpf (0-4) Urine Hyaline Casts (Auto) 0 /lpf (0-5) Urine Epithelial Cells (Auto) 20-30 /lpf (0-5) Urine Bacteria (Auto) NEG (NEG) Laboratory results per my review. ECG Indication: weakness Rate (beats per minute): 78 Rhythm: other (Atrial sensed pacemaker) Findings: other (No PVC) Comparison ECG Date: November 27, 2016 Change: no significant change ED Course 1212: The patient was evaluated in room B04B. A complete history and physical examination were performed. 1644: Upon reevaluation, the patient is resting comfortably. I discussed the results and treatment plan with the patient and her family. They verbalized agreement of the treatment plan. The patient was discharged home. Medical Decision Prior records/ancillary studies reviewed and summarized above. Nursing notes reviewed. Additional history obtained from daughter. Differential diagnosis: Etiologies such as metabolic, infection, hypo/hyperglycemia, electrolyte abnormalities, cardiac sources, intracerebral event, toxicologic, neurologic, as well as others were entertained. The patient is a 76-year-old female who presented to the emergency department for an evaluation of constipation and upper respiratory symptoms. The patient was found have signs of constipation on physical exam. Radiographic studies appear to confirm this. She also complains of headache and sweating at night especially. She had no signs of pulmonary abnormality on chest x-ray. She did not have a fever in the emergency department. I discussed the patient's laboratory radiographic studies with her. I also discussed her case with her family members well. She was encouraged to continue all medications as prescribed. She was also encouraged to call her primary care physician to schedule a follow-up appointment. She was also encouraged to return to the emergency department immediately if symptoms change worsen or the need arises. Impression Primary Impression: Constipation Additional Impression: Upper respiratory infection Scribe Attestation The scribe's documentation has been prepared under my direction and personally reviewed by me in its entirety. I confirm that the note above accurately reflects all work, treatment, procedures, and medical decision making performed by me. Departure Information Dispostion Home / Self-Care Prescriptions Polyethylene Glycol 3350 (MIRALAX) 1 Pow Pow 17 GM PO DAILY, #527 GM Prov: Junior Berry, DO 02/22/17 Referrals Irene Foster (PCP) Forms HOME CARE DOCUMENTATION FORM, IMPORTANT VISIT INFORMATION, WORK / SCHOOL INSTRUCTIONS Patient Instructions Constipation, My [facility] [employer] Additional Instructions Call your family doctor in the morning to schedule a follow-up appointment. Drink plenty clear liquids. Continue all medications as prescribed. Return to the emergency department immediately if symptoms change worsen or the need arises. Problem Qualifiers Primary Impression: Constipation Constipation type: unspecified constipation type Qualified Codes: K59.00 - Constipation, unspecified Additional Impression: Upper respiratory infection URI type: unspecified URI Qualified Codes: J06.9 - Acute upper respiratory infection, unspecified
--- NOTE | 2017-02-22 12:56 | DIAGNOSTIC IMAGING REPORT ---
SINGLE VIEW CHEST CLINICAL HISTORY: Generalized abdominal pain. FINDINGS: 2 AP, portable, upright chest radiographs are compared to study dated 11/27/2016. Correlation is made with abdominal CT dated 04/05/2016. The examination is degraded by portable technique and patient rotation. A 2-lead cardiac pacemaker is unchanged in position and partially obscures the left upper chest. The patient is status post midline sternotomy. The heart is mildly enlarged and there is atherosclerotic calcification of the thoracic aorta. Aneurysmal dilatation of the descending thoracic aorta is again seen. The pulmonary vasculature is noncongested. Emphysematous changes are again noted. There is mild elevation of the right hemidiaphragm and right basilar atelectasis. Apical scarring is observed. Chronic interstitial thickening is similar to previous. No airspace consolidation, pleural effusion, or pneumothorax is seen. The skeletal structures are osteopenic. There are healed left-sided rib fractures. IMPRESSION: 1. Cardiomegaly and cardiac pacemaker. There is no radiographic evidence of congestive failure. 2. Emphysema. 3. No airspace consolidation or pleural effusion is identified. Electronically signed by: Noble Higgins M.D. 02/22/2017 12:54 PM Dictated Date/Time: 02/22/2017 12:53 PM
--- NOTE | 2017-02-22 12:57 | DIAGNOSTIC IMAGING REPORT ---
KUB HISTORY: constipation COMPARISON: Abdomen and pelvis CT 04/26/2016. FINDINGS: Large amount of well-formed stool seen throughout the colon. Soft tissue density within the deep pelvis favors the mildly distended bladder. Multiple surgical clips seen within the lower abdomen and pelvis. No dilated loops of small bowel to suggest an obstruction. No renal calculi. No ureteral calculi. No pneumoperitoneum or pneumatosis. IMPRESSION: Large amount of well-formed stool seen throughout the colon. No evidence for bowel obstruction. Electronically signed by: Timoteo Shaffer M.D. 02/22/2017 12:55 PM Dictated Date/Time: 02/22/2017 12:53 PM
[2017-02-22 13:23] LABS: BASO % 0.5 %; BASO ABS # 0.05 K/uL (0-0.2); COMPLETE YES; EOS % 1.7 %; IG% 0.2 %; LYMPH % 23.1 %; LYMPH ABS # 2.32 K/uL (1.2-3.4); MEAN CELL VOLUME 84.5 fL (80-100); MEAN CORPUSCULAR HEMOGLOBIN 28.2 pg (25-34); MEAN CORPUSCULAR HGB CONC 33.4 g/dl (32-36); MEAN PLATELET VOLUME 8.9 fL (7.4-10.4); MONO % 8.3 %; NEUT % 66.2 %; PLATELET COUNT 295 K/uL (130-400); RED BLOOD COUNT 4.85 M/uL (4.2-5.4); WHITE BLOOD COUNT 10.03 K/uL (4.8-10.8)
[2017-02-22 13:34] LABS: PROTHROMBIN TIME (PATIENT) 10.7 SECONDS (9.0-12.0)
[2017-02-22 13:45] LABS: ALT/SGPT 19 U/L (12-78); AST/SGOT 12 U/L (15-37); BLOOD UREA NITROGEN 12 mg/dl (7-18); CALCIUM 8.8 mg/dl (8.5-10.1); CARBON DIOXIDE 32 mmol/L (21-32); CHLORIDE 103 mmol/L (98-107); CREATININE 0.84 mg/dl (0.60-1.20); GLUCOSE 98 mg/dl (70-99); POTASSIUM 3.8 mmol/L (3.5-5.1); SODIUM 140 mmol/L (136-145)
[2017-02-22 13:50] LABS: ALKALINE PHOSPHATASE 94 U/L (45-117); CKMB/CK RATIO 2.3 (0-3.0)
[2017-02-22 15:31] LABS: INFLUENZA A PCR Neg for Influ A (NEG); INFLUENZA B PCR Neg for Influ B (NEG)
[2017-02-22 15:34] LABS: URINE APPEARANCE CLEAR (CLEAR); URINE BILIRUBIN NEG (NEG); URINE COLOR YELLOW; URINE EPITHELIAL CELL AUTO 20-30 /lpf (0-5); URINE NITRITE NEG (NEG); URINE PH 7.5 (4.5-7.5); URINE SPECIFIC GRAVITY 1.008 (1.000-1.030); UROBILINOGEN NEG (NEG)
[2017-02-22 15:37] LABS: MANUAL MICROSCOPIC REQUIRED? NO; REVIEW REQ? NO
[2017-02-22 16:46] VITALS: BP 145/95; PULSE 96; O2SAT 99
[2017-02-22] MEDS ORDERED: POLY335019 PO (16:47)
[2017-06-03] MEDS ORDERED: PSYL58.636 PO (01:32)
[2017-06-03] MEDS ORDERED: DICL-201 PO (01:36)
[2017-06-03] MEDS ORDERED: HYDR12.55 PO (01:37)
[2017-06-03] MEDS ORDERED: CHOL20007 PO (01:39)
[2017-06-03] MEDS ORDERED: BISA1TAB15 PO (01:41)
[2017-06-03] MEDS ORDERED: FAMO1TAB68 PO (01:47)
[2017-06-03] MEDS ORDERED: MIRT15TA2 PO (08:35)
[2017-06-03] MEDS ORDERED: METO50TA16 PO (08:35)
[2017-06-03] MEDS ORDERED: AMLO10TA2 PO (08:35)
[2017-06-03] MEDS ORDERED: OXYC1TAB3 PO (10:48)
[2017-06-03] MEDS ORDERED: ASPCH81X PO (10:48)
[2017-06-03] MEDS ORDERED: NMN5 PO (10:48)
[2017-06-03] MEDS ORDERED: ALBU18002 INH (10:48)
[2017-06-03] MEDS ORDERED: DONE1TAB11 PO (10:48)
[2017-06-03] MEDS ORDERED: CLOP1TAB15 PO (10:48)
[2017-06-03] MEDS ORDERED: PRAV40TA PO (12:36)
[2017-06-03] MEDS ORDERED: ACET-1256 PO (12:36)
[2017-06-03] MEDS ORDERED: SENN-65 PO (12:36)
== END 2017-02-22 17:09 | disposition home or self-care (01) ==
LOC: C.EDB 12:07 → EDBD 12:07 → C.EDB 17:09
DX: K59.00 Constipation, unspecified (principal); J06.9 Acute upper respiratory infection, unspecified; Z95.0 Presence of cardiac pacemaker; I71.4 Abdominal aortic aneurysm, without rupture; I71.2 Thoracic aortic aneurysm, without rupture; Z87.440 Personal history of urinary (tract) infections; Z87.891 Personal history of nicotine dependence; Z79.82 Long term (current) use of aspirin; Z79.02 Long term (current) use of antithrombotics/antiplatelets; Z79.899 Other long term (current) drug therapy

== ENCOUNTER 2017-03-18 06:55 | Emergency (ER) | payer OTHER ==
[~2017-03-18] VITALS: Ht 172.7 cm; Wt 74.0 kg
[~2017-03-18 06:55] MED LIST changes: -MIRT15TA3 PO; -OLAN5TAB3 PO; +POLY335019 PO
[2017-03-18 07:01] VITALS: TEMP 36.7; Ht 172.7 cm; Wt 74.0 kg
[2017-03-18] MEDS ORDERED: SODIUM CHLORIDE 0.9% 1000ML 1,000 ML IV STA (07:12)
[2017-03-18 08:07] LABS: BASO % 0.8 %; BASO ABS # 0.06 K/uL (0-0.2); COMPLETE YES; EOS % 4.1 %; HEMATOCRIT 39.2 % (37-47); IG% 0.3 %; LYMPH % 26.7 %; LYMPH ABS # 1.89 K/uL (1.2-3.4); MEAN CELL VOLUME 87.9 fL (80-100); MEAN CORPUSCULAR HEMOGLOBIN 28.3 pg (25-34); MEAN CORPUSCULAR HGB CONC 32.1 g/dl (32-36); MEAN PLATELET VOLUME 8.9 fL (7.4-10.4); MONO % 7.1 %; PLATELET COUNT 315 K/uL (130-400); RED BLOOD COUNT 4.46 M/uL (4.2-5.4); WHITE BLOOD COUNT 7.07 K/uL (4.8-10.8)
--- NOTE | 2017-03-18 08:21 | DIAGNOSTIC IMAGING REPORT ---
ABDOMEN 2VIEW W/PA CHEST RTN CLINICAL HISTORY: Abdominal and back pain. Constipation. COMPARISON STUDY: Supine abdomen dated 02/22/2017 FINDINGS: The erect chest reveals postsurgical changes of a midline sternotomy. There is a left subclavian dual-chamber central venous pacemaker present. There is aortic tortuosity/ectasia. No free air is visualized.] Erect and supine views of the abdomen reveal scattered stool within the colon. There are multiple surgical clips present, likely secondary to a prior lymph node dissection. There are no transition zones to indicate bowel obstruction. IMPRESSION: No evidence of bowel obstruction. No evidence of free air. Electronically signed by: Gaudencio Craig M.D. 03/18/2017 8:20 AM Dictated Date/Time: 03/18/2017 8:18 AM
[2017-03-18 08:22] LABS: URINE APPEARANCE CLEAR (CLEAR); URINE BILIRUBIN NEG (NEG); URINE COLOR YELLOW; URINE NITRITE NEG (NEG); URINE PH 7.5 (4.5-7.5); URINE SPECIFIC GRAVITY 1.007 (1.000-1.030); UROBILINOGEN NEG (NEG); ZZUR CULT IF INDIC CLEAN CATCH NO
[2017-03-18 08:24] LABS: MANUAL MICROSCOPIC REQUIRED? NO; REVIEW REQ? NO
[2017-03-18 08:27] LABS: BUN/CREATININE RATIO 11.9 (10-20); CREATININE 0.83 mg/dl (0.60-1.20); POTASSIUM 4.4 mmol/L (3.5-5.1)
[2017-03-18] MEDS ORDERED: ALPR-411 PO (08:35)
[2017-03-18] MEDS ORDERED: NALO1TAB2 PO (08:35)
[2017-03-18] MEDS ORDERED: DOCU100C31 PO (08:35)
[2017-03-18 08:36] LABS: CALCIUM 8.6 mg/dl (8.5-10.1)
--- NOTE | 2017-03-18 08:47 | EMERGENCY ROOM VISIT NOTE ---
ED Visit Note First contact with patient: 07:04 76-year-old female with constipation was fully evaluated by Ashley Calderon PA-C. Please see her note. I also independently evaluated the patient. The patient was felt safe to return home. IMPRESSION: Constipation
--- NOTE | 2017-03-18 08:51 | EMERGENCY ROOM VISIT NOTE ---
History First contact with patient: 07:04 Chief Complaint: FLU LIKE SX Stated Complaint: FLU LIKE SX History of Present Illness The patient is a 76 year old female who presents to the Emergency Room with complaints of low back pain for 2 days. She rates the pain at an 8 out of 10. The patient states that she is constipated. The patient was seen at [facility] 2 days ago for the same symptoms. They told her to take to take Dulcolax twice daily. The patient states that she has not had a bowel movement since she was in the ER. They did not do "anything". She states they gave her some type of shot in the belly for the constipation. The patient denies any abdominal pain but admits to some bloating. She denies any nausea or vomiting. The patient denies any injury to her back. The patient denies any urinary symptoms of frequency, urgency, dysuria or hematuria. The patient does admit to history of UTIs. The patient denies any chest pain or shortness of breath. The patient normally takes hydrocodone daily for pain. She has not had any today or yesterday. Review of Systems 10 system review was performed and was negative unless stated otherwise history of present illness. Past Medical/Surgical History Medical Problems: (1) AAA (abdominal aortic aneurysm) (2) Benzodiazepine withdrawal (3) Left flank pain (4) Thoracic aortic aneurysm (5) UTI (urinary tract infection) Family History Patient reports no known family medical history. Social History Smoking Status: Former Smoker Alcohol Use: none Drug Use: none Marital Status: Housing Status: lives with family Occupation Status: retired Current/Historical Medications Scheduled Alprazolam (Xanax), 0.5 MG PO TID Amlodipine Besylate (Norvasc), 10 MG PO DAILY Aspirin (Aspirin Chewable), 81 MG PO DAILY Cholecalciferol (Vitamin D3), 1,000 INTER.UNIT PO QAM Clopidogrel (Plavix), 75 MG PO DAILY Cyanocobalamin (Vitamin B-12), 1,000 MCG PO DAILY Docusate Sodium (Docusate Sodium), 100 MG PO BID Donepezil Hydrochloride (Donepezil Hcl), 5 MG PO HS Lactulose (Chronulac), 15 ML PO DAILY Memantine (Namenda), 5 MG PO DAILY Metoprolol Tartrate (Lopressor) (Lopressor), 50 MG PO BID Mirtazapine Soltab (Remeron Soltab), 15 MG PO HS Naloxegol Oxalate (Movantik), 25 MG PO DAILY Oxycodone Immediate Rel Tab (Roxicodone Ir), 5 MG PO Q6H Polyethylene Glycol 3350 (Miralax), 17 GM PO DAILY Pravastatin Sodium (Pravachol), 1 TAB PO DAILY Senna/Docusate Sod (Senokot S), 2 TAB PO HS Scheduled PRN Acetaminophen (Tylenol), 500 MG PO UD PRN for Pain Albuterol Sulfate (Proair Respiclick), 2 PUFFS INH Q4 PRN for SOB/Wheezing Allergies Coded Allergies: No Known Allergies (Unverified , 11/27/16) Physical Exam Vital Signs Date Time Temp Pulse Resp B/P Pulse Ox O2 Delivery O2 Flow Rate FiO2 03/18/17 07:06 60 03/18/17 07:01 36.7 60 24 155/102 96 Room Air 03/18/17 07:01 99 Nasal Cannula 2.0 Physical Exam GENERAL: 68-year-old white female appears in no acute distress. MENTAL Status: Alert and oriented 3. EYES: No icterus noted MOUTH: Mucosa is moist NECK: Supple, no lymphadenopathy noted. No carotid bruits noted. LUNGS: Clear auscultation without wheezes rales or rhonchi. CARDIAC: Regular rate and rhythm without murmur. Pulses is full and equal throughout. BACK: No CVA tenderness noted. ABDOMEN: Positive bowel sounds all 4 quadrants. Soft, nontender to palpation without organomegaly or masses. RECTAL: Anal sphincter tone intact. No internal masses noted. There is only a small amount of stool in the rectum but I do feel hard stool within the sigmoid colon. Stool guaiac was negative. LUMBAR SPINE: No gross bony deformity noted. Generalized tenderness over the entire lumbar region both over the spinous processes in the paravertebral region. EXTREMITIES: No cyanosis or edema noted. Medical Decision & Procedures ER Provider Diagnostic Interpretation: ABDOMEN 2VIEW W/PA CHEST RTN CLINICAL HISTORY: Abdominal and back pain. Constipation. COMPARISON STUDY: Supine abdomen dated 02/22/2017 FINDINGS: The erect chest reveals postsurgical changes of a midline sternotomy. There is a left subclavian dual-chamber central venous pacemaker present. There is aortic tortuosity/ectasia. No free air is visualized.] Erect and supine views of the abdomen reveal scattered stool within the colon. There are multiple surgical clips present, likely secondary to a prior lymph node dissection. There are no transition zones to indicate bowel obstruction. IMPRESSION: No evidence of bowel obstruction. No evidence of free air. Electronically signed by: Gaudencio Craig M.D. 03/18/2017 8:20 AM Dictated Date/Time: 03/18/2017 8:18 AM Laboratory Results 03/18/17 07:45 Red Blood Count 4.46, Mean Corpuscular Volume 87.9, Mean Corpuscular Hemoglobin 28.3, Mean Corpuscular Hemoglobin Concent 32.1, Mean Platelet Volume 8.9, Neutrophils (%) (Auto) 61.0, Lymphocytes (%) (Auto) 26.7, Monocytes (%) (Auto) 7.1, Eosinophils (%) (Auto) 4.1, Basophils (%) (Auto) 0.8, Neutrophils # (Auto) 4.31, Lymphocytes # (Auto) 1.89, Monocytes # (Auto) 0.50, Eosinophils # (Auto) 0.29, Basophils # (Auto) 0.06 03/18/17 07:45 Test 03/18/17 07:45 03/18/17 07:59 White Blood Count 7.07 K/uL (4.8-10.8) Red Blood Count 4.46 M/uL (4.2-5.4) Hemoglobin 12.6 g/dL (12.0-16.0) Hematocrit 39.2 % (37-47) Mean Corpuscular Volume 87.9 fL (80-100) Mean Corpuscular Hemoglobin 28.3 pg (25-34) Mean Corpuscular Hemoglobin Concent 32.1 g/dl (32-36) Platelet Count 315 K/uL (130-400) Mean Platelet Volume 8.9 fL (7.4-10.4) Neutrophils (%) (Auto) 61.0 % Lymphocytes (%) (Auto) 26.7 % Monocytes (%) (Auto) 7.1 % Eosinophils (%) (Auto) 4.1 % Basophils (%) (Auto) 0.8 % Neutrophils # (Auto) 4.31 K/uL (1.4-6.5) Lymphocytes # (Auto) 1.89 K/uL (1.2-3.4) Monocytes # (Auto) 0.50 K/uL (0.11-0.59) Eosinophils # (Auto) 0.29 K/uL (0-0.5) Basophils # (Auto) 0.06 K/uL (0-0.2) RDW Standard Deviation 47.7 fL (36.4-46.3) RDW Coefficient of Variation 14.8 % (11.5-14.5) Immature Granulocyte % (Auto) 0.3 % Immature Granulocyte # (Auto) 0.02 K/uL (0.00-0.02) Anion Gap 5.0 mmol/L (3-11) Est Creatinine Clear Calc Drug Dose 56.3 ml/min Estimated GFR () 78.3 Estimated GFR (Non- 67.5 BUN/Creatinine Ratio 11.9 (10-20) Calcium Level 8.6 mg/dl (8.5-10.1) Total Bilirubin 0.7 mg/dl (0.2-1) Direct Bilirubin 0.1 mg/dl (0-0.2) Aspartate Amino Transf (AST/SGOT) 12 U/L (15-37) Alanine Aminotransferase (ALT/SGPT) 19 U/L (12-78) Alkaline Phosphatase 81 U/L (45-117) Total Protein 7.0 gm/dl (6.4-8.2) Albumin 3.6 gm/dl (3.4-5.0) Lipase 130 U/L (73-393) Urine Color YELLOW Urine Appearance CLEAR (CLEAR) Urine pH 7.5 (4.5-7.5) Urine Specific [place] 1.007 (1.000-1.030) Urine Protein NEG (NEG) Urine Glucose (UA) NEG (NEG) Urine Ketones NEG (NEG) Urine Occult Blood NEG (NEG) Urine Nitrite NEG (NEG) Urine Bilirubin NEG (NEG) Urine Urobilinogen NEG (NEG) Urine Leukocyte Esterase SMALL (NEG) Urine WBC (Auto) 1-5 /hpf (0-5) Urine RBC (Auto) 0-4 /hpf (0-4) Urine Hyaline Casts (Auto) 1-5 /lpf (0-5) Urine Epithelial Cells (Auto) 10-20 /lpf (0-5) Urine Bacteria (Auto) NEG (NEG) Medications Administered Medications (Trade) Dose Ordered Sig/Darlyn Route Start Time Stop Time Status Last Admin Dose Admin Sodium Chloride (Nss 1000ml) 1,000 ml @ 999 mls/hr Q1H1M STAT IV 03/18/17 07:12 03/18/17 08:12 DC 03/18/17 07:29 999 MLS/HR ED Course The patient was evaluated. The patient's EMR and medication list were reviewed. The patient is taking Dulcolax 100 mg twice daily. IV access was obtained. The patient was given 1 L normal saline wide-open. CBC and differential, renal profile, LFTs and lipase levels were ordered. Urinalysis was ordered. Abdominal series x-ray was ordered and interpreted by the radiologist and myself as above with stool scattered throughout the colon.. I will hold off giving pain medication until I have x-ray report. Labs were reviewed and are unremarkable. Urinalysis was negative. The patient was independently evaluated by Dr. Tenorio who agree with treatment plan. The patient was discharged home in stable condition. Medical Decision Differential diagnosis include UTI, abdominal mass, constipation, small bowel obstruction. Impression Primary Impression: Constipation Departure Information Dispostion Home / Self-Care Condition GOOD Referrals Irene Foster (PCP) Forms HOME CARE DOCUMENTATION FORM, IMPORTANT VISIT INFORMATION Patient Instructions ED Constipation, [facility] Additional Instructions Drink a lot of water. High-fiber diet. Minimize dairy products. Take one bottle of magnesium Citrate today. Continue the Dulcolax for one week. Then switch over to MiraLAX as directed on the label daily as long as you are taking the hydrocodone. If symptoms persist recommend follow-up your family physician. Problem Qualifiers Primary Impression: Constipation Constipation type: unspecified constipation type Qualified Codes: K59.00 - Constipation, unspecified
[2017-03-18 08:57] VITALS: BP 147/75; PULSE 60; O2SAT 98
[2017-06-03] MEDS ORDERED: PSYL58.636 PO (01:32)
[2017-06-03] MEDS ORDERED: DICL-201 PO (01:36)
[2017-06-03] MEDS ORDERED: HYDR12.55 PO (01:37)
[2017-06-03] MEDS ORDERED: CHOL20007 PO (01:39)
[2017-06-03] MEDS ORDERED: BISA1TAB15 PO (01:41)
[2017-06-03] MEDS ORDERED: FAMO1TAB68 PO (01:47)
[2017-06-03] MEDS ORDERED: MIRT15TA2 PO (08:35)
[2017-06-03] MEDS ORDERED: METO50TA16 PO (08:35)
[2017-06-03] MEDS ORDERED: AMLO10TA2 PO (08:35)
[2017-06-03] MEDS ORDERED: ASPCH81X PO (10:48)
[2017-06-03] MEDS ORDERED: ALBU18002 INH (10:48)
[2017-06-03] MEDS ORDERED: OXYC1TAB3 PO (10:48)
[2017-06-03] MEDS ORDERED: CLOP1TAB15 PO (10:48)
[2017-06-03] MEDS ORDERED: NMN5 PO (10:48)
[2017-06-03] MEDS ORDERED: DONE1TAB11 PO (10:48)
[2017-06-03] MEDS ORDERED: PRAV40TA PO (12:36)
[2017-06-03] MEDS ORDERED: SENN-65 PO (12:36)
[2017-06-03] MEDS ORDERED: ACET-1256 PO (12:36)
== END 2017-03-18 09:07 | disposition home or self-care (01) ==
LOC: EDBD 06:55 → C.EDB 06:58
DX: K59.00 Constipation, unspecified (principal); I71.4 Abdominal aortic aneurysm, without rupture; I71.2 Thoracic aortic aneurysm, without rupture; Z87.440 Personal history of urinary (tract) infections; Z87.891 Personal history of nicotine dependence; Z79.82 Long term (current) use of aspirin; Z79.899 Other long term (current) drug therapy

== ENCOUNTER 2017-03-31 01:20 | Emergency (ER) | payer OTHER ==
[~2017-03-31] VITALS: Ht 172.7 cm; Wt 71.0 kg
[~2017-03-31 01:20] MED LIST changes: +ALPR-411 PO; -ALPR1TAB3 PO; +DOCU100C31 PO; -FAMO20TA11 PO; -GABA-112 PO; -HYDR25TA4 PO; -METO25TA3 PO; +NALO1TAB2 PO
[2017-03-31 01:28] VITALS: TEMP 36.4; Ht 172.7 cm; Wt 71.0 kg
[2017-03-31] MEDS ORDERED: ONDANSETRON INJ 2 MG/ML 2 ML VIAL IV STA ×2 (01:32→03:30)
[2017-03-31] MEDS ORDERED: MoRPHine SULFATE 4 MG/ML 1 ML CARP\\VIAL IV STA ×2 (01:32→03:30)
--- NOTE | 2017-03-31 01:36 | EMERGENCY ROOM VISIT NOTE ---
History Report prepared by Conor: Baljinder Brice Under the Supervision of: Dr. Alo Jackman D.O. First contact with patient: 01:24 Chief Complaint: ABDOMINAL PAIN Stated Complaint: LLQ abd pain History of Present Illness The patient is a 76 year old female who presents to the Emergency Room with complaints of worsening LLQ abdominal pain that began a couple of days ago. She rates her pain moderate in severity. She was seen in the [facility] 3 days ago. She was discharged without any further treatment. Her pain since then has worsened. She was diagnosed with a possible abdominal aortic aneurysm at [facility] three days ago. She is currently experiencing diaphoresis, nausea, and shakiness. She denies any back pain or vomiting. Her last bowel movement was 3 days ago. She is currently on Plavix and Aspirin. Source of History: patient Onset: a couple of days ago Position: abdomen (LLQ) Symptom Intensity: moderate Quality: sharp Timing: worsening Associated Symptoms: + diaphoresis, + nausea, No vomiting, No back pain Review of Systems See HPI for pertinent positives and negatives. A total of ten systems were reviewed and were otherwise negative. Past Medical & Surgical Medical Problems: (1) AAA (abdominal aortic aneurysm) (2) Benzodiazepine withdrawal (3) Left flank pain (4) Thoracic aortic aneurysm (5) UTI (urinary tract infection) Family History Patient reports no known family medical history. Social History Smoking Status: Former Smoker Alcohol Use: none Drug Use: none Marital Status: Housing Status: lives with family Occupation Status: retired Current/Historical Medications Scheduled Amlodipine Besylate (Norvasc), 10 MG PO DAILY Aspirin (Aspirin Chewable), 81 MG PO DAILY Cholecalciferol (Vitamin D3), 2,000 INTERUNIT PO DAILY Clopidogrel (Plavix), 75 MG PO DAILY Diclofenac (Voltaren), 75 MG PO BID Donepezil Hydrochloride (Donepezil Hcl), 5 MG PO HS Famotidine (Famotidine), 20 MG PO DAILY Hydrochlorothiazide (Hydrochlorothiazide), 12.5 MG PO DAILY Memantine (Namenda), 5 MG PO DAILY Metoprolol Tartrate (Lopressor) (Lopressor), 50 MG PO BID Mirtazapine Soltab (Remeron Soltab), 15 MG PO HS Olanzapine (Zyprexa Zydis Odt), 5 MG PO DAILY Oxycodone Immediate Rel Tab (Roxicodone Ir), 5 MG PO Q6H Pravastatin Sodium (Pravachol), 40 MG PO DAILY Psyllium (Metamucil Fiber), 1 DOSE PO DAILY Senna/Docusate Sod (Senokot S), 2 TAB PO HS Scheduled PRN Acetaminophen (Tylenol), 500 MG PO UD PRN for Pain Albuterol Sulfate (Proair Respiclick), 2 PUFFS INH Q4 PRN for SOB/Wheezing Bisacodyl (Bisacodyl), 5 MG PO TID PRN for Constipation Allergies Coded Allergies: No Known Allergies (Unverified , 03/31/17) Physical Exam Vital Signs Date Time Temp Pulse Resp B/P (MAP) Pulse Ox O2 Delivery O2 Flow Rate FiO2 03/31/17 01:28 36.4 67 28 147/102 100 Nasal Cannula 3.0 Physical Exam GENERAL: Awake, alert, anxious appearing, in no distress HENT: Normocephalic, atraumatic. Oropharynx unremarkable. EYES: Normal conjunctiva. Sclera non-icteric. NECK: Supple. No nuchal rigidity. FROM. No JVD. RESPIRATORY: Clear to auscultation. CARDIAC: Regular rate, normal rhythm. Extremities warm and well perfused. Pulses equal. ABDOMEN: Soft, non-distended. LLQ tenderness to palpation. No rigidity. No rebound or guarding. No masses. No abnormal aortic pulsations or masses. Midline surgical scar present. RECTAL: Deferred. MUSCULOSKELETAL: Chest examination reveals no tenderness. The back is symmetrical on inspection without obvious abnormality. There is no CVA tenderness to palpation. No joint edema. LOWER EXTREMITIES: Calves are equal size bilaterally and non-tender. No edema. No discoloration. NEURO: Normal sensorium. No sensory or motor deficits noted. SKIN: No rash or jaundice noted. PSYCH: Anxious. Medical Decision & Procedures ER Provider Diagnostic Interpretation: X ray results as stated below per my interpretation and radiologist interpretation. Other radiology results as stated below per my review and radiologist interpretation CT ABDOMEN & PELVIS: Comparison: CT dated 04/26/2016 Atherosclerotic vascular disease with stable aneurysmal dilation of the visualized distal descending thoracic aorta measuring approximately 4.2 cm transverse and stable abdominal aortic aneurysm measuring up to 3.3 cm transverse. No evidence of dissection or aneurysm rupture. No evidence of acute inflammatory or obstructive process in the abdomen or pelvis to account for left lower quadrant pain. Stable postsurgical changes in the pelvis and retroperitoneum. Hysterectomy. Radiologist: Zina Eddy MD Laboratory Results 03/31/17 01:32 Red Blood Count 4.98, Mean Corpuscular Volume 88.0, Mean Corpuscular Hemoglobin 28.5, Mean Corpuscular Hemoglobin Concent 32.4, Mean Platelet Volume 10.0, Neutrophils (%) (Auto) 52.8, Lymphocytes (%) (Auto) 36.0, Monocytes (%) (Auto) 8.6, Eosinophils (%) (Auto) 2.0, Basophils (%) (Auto) 0.5, Neutrophils # (Auto) 5.97, Lymphocytes # (Auto) 4.08, Monocytes # (Auto) 0.98, Eosinophils # (Auto) 0.23, Basophils # (Auto) 0.06 03/31/17 01:32 Test 03/31/17 01:32 03/31/17 02:15 White Blood Count 11.33 K/uL (4.8-10.8) Red Blood Count 4.98 M/uL (4.2-5.4) Hemoglobin 14.2 g/dL (12.0-16.0) Hematocrit 43.8 % (37-47) Mean Corpuscular Volume 88.0 fL (80-100) Mean Corpuscular Hemoglobin 28.5 pg (25-34) Mean Corpuscular Hemoglobin Concent 32.4 g/dl (32-36) Platelet Count 334 K/uL (130-400) Mean Platelet Volume 10.0 fL (7.4-10.4) Neutrophils (%) (Auto) 52.8 % Lymphocytes (%) (Auto) 36.0 % Monocytes (%) (Auto) 8.6 % Eosinophils (%) (Auto) 2.0 % Basophils (%) (Auto) 0.5 % Neutrophils # (Auto) 5.97 K/uL (1.4-6.5) Lymphocytes # (Auto) 4.08 K/uL (1.2-3.4) Monocytes # (Auto) 0.98 K/uL (0.11-0.59) Eosinophils # (Auto) 0.23 K/uL (0-0.5) Basophils # (Auto) 0.06 K/uL (0-0.2) RDW Standard Deviation 45.3 fL (36.4-46.3) RDW Coefficient of Variation 14.1 % (11.5-14.5) Immature Granulocyte % (Auto) 0.1 % Immature Granulocyte # (Auto) 0.01 K/uL (0.00-0.02) Anion Gap 8.0 mmol/L (3-11) Est Creatinine Clear Calc Drug Dose 46.8 ml/min Estimated GFR () 62.5 Estimated GFR (Non- 53.9 BUN/Creatinine Ratio 13.3 (10-20) Calcium Level 9.1 mg/dl (8.5-10.1) Total Bilirubin 0.4 mg/dl (0.2-1) Direct Bilirubin < 0.1 mg/dl (0-0.2) Aspartate Amino Transf (AST/SGOT) 9 U/L (15-37) Alanine Aminotransferase (ALT/SGPT) 13 U/L (12-78) Alkaline Phosphatase 85 U/L (45-117) Total Protein 7.9 gm/dl (6.4-8.2) Albumin 4.5 gm/dl (3.4-5.0) Lipase 163 U/L (73-393) Bedside Lactic Acid Venous 2.23 mmol/L (0.90-1.70) Laboratory results reviewed by me Medications Administered Medications (Trade) Dose Ordered Sig/Darlyn Route Start Time Stop Time Status Last Admin Dose Admin Ondansetron HCl (Zofran Inj) 4 mg NOW STAT IV 03/31/17 01:32 03/31/17 01:34 DC 03/31/17 01:52 4 MG Morphine Sulfate (MoRPHine SULFATE INJ) 4 mg NOW STAT IV 03/31/17 01:32 03/31/17 01:34 DC 03/31/17 01:52 4 MG Morphine Sulfate (MoRPHine SULFATE INJ) 4 mg NOW STAT IV 03/31/17 03:30 03/31/17 03:32 DC 03/31/17 04:01 4 MG Ondansetron HCl (Zofran Inj) 4 mg NOW STAT IV 03/31/17 03:30 03/31/17 03:32 DC 03/31/17 04:01 4 MG ED Course 0124: The patient was evaluated in room B4B. A complete history and physical exam was performed. 0132: Ordered Morphine Sulfate 4 mg IV, Zofran Inj 4 mg IV 0330: Ordered Zofran Inj 4 mg IV, Morphine Sulfate 4 mg IV 0415: On reexamination, the patient's abdomen is soft and non-tender. I spoke wit her and her family. We will be doing a repeat point of care lactic acid test. 0445: I reevaluated the patient. Discussed results and discharge instructions: She verbalized understanding and agreement. The patient is ready for discharge. Medical Decision Differential diagnoses include but are not limited to; diverticulitis, pyelonephritis, UTI, colitis, bowel obstruction, AAA, and constipation. Medication Reconciliation: I attest that I have personally reviewed the patient' s current medication list. Blood pressure screening: Patient was found to have normal blood pressure on screening and does not require follow-up. Repeat exam - resting in no distress abdomen is very soft is no tenderness in the left lower quadrant. I've discussed the evaluation with the patient and the patient's daughter at bedside. She has a stable abdominal aortic aneurysm without rupture or dissection and is less than 5 cm. Patient's lactic acid decreased from 2.232 1.5 I do not suspect ischemic bowel. Patient will be discharged with follow-up and pain medicine Impression Primary Impression: LLQ abdominal pain Additional Impression: AAA (abdominal aortic aneurysm) Scribe Attestation The scribe's documentation has been prepared under my direction and personally reviewed by me in its entirety. I confirm that the note above accurately reflects all work, treatment, procedures, and medical decision making performed by me. Departure Information Dispostion Home / Self-Care Prescriptions Hydrocodone/Acetaminophen 5MG/325MG ([place] 5MG/325MG) Tab 1 TABLET PO Q6H Y for Pain, #14 TAB Prov: Alo Jackman, DO 03/31/17 Referrals Irene Foster (PCP) Forms HOME CARE DOCUMENTATION FORM, IMPORTANT VISIT INFORMATION Patient Instructions Abdominal Pain - [facility], ED Aneurysm Abdominal Aortic Stable, [facility] Problem Qualifiers
[2017-03-31] MEDS ORDERED: OLAN5TAB3 PO (01:44)
[2017-03-31] MEDS ORDERED: OPTIRAY 320 IV PRN (01:45)
[2017-03-31 03:16] LABS: ALKALINE PHOSPHATASE 85 U/L (45-117); ALT/SGPT 13 U/L (12-78); AST/SGOT 9 U/L (15-37); BLOOD UREA NITROGEN 13 mg/dl (7-18); CALCIUM 9.1 mg/dl (8.5-10.1); CARBON DIOXIDE 33 mmol/L (21-32); CHLORIDE 103 mmol/L (98-107); POTASSIUM 3.2 mmol/L (3.5-5.1); SODIUM 144 mmol/L (136-145)
[2017-03-31 03:22] LABS: BUN/CREATININE RATIO 13.3 (10-20); GLUCOSE 123 mg/dl (70-99)
[2017-03-31 03:26] LABS: BASO % 0.5 %; BASO ABS # 0.06 K/uL (0-0.2); COMPLETE YES; HEMATOCRIT 43.8 % (37-47); IG% 0.1 %; LYMPH ABS # 4.08 K/uL (1.2-3.4); MEAN CORPUSCULAR HEMOGLOBIN 28.5 pg (25-34); MEAN CORPUSCULAR HGB CONC 32.4 g/dl (32-36); MONO % 8.6 %; NEUT % 52.8 %; PLATELET COUNT 334 K/uL (130-400); RED BLOOD COUNT 4.98 M/uL (4.2-5.4); WHITE BLOOD COUNT 11.33 K/uL (4.8-10.8)
[2017-03-31] MEDS ORDERED: HYDR-5688 PO (04:36)
[2017-03-31 04:43] VITALS: BP 147/77; PULSE 66; O2SAT 97
--- NOTE | 2017-03-31 08:24 | DIAGNOSTIC IMAGING REPORT ---
CT OF THE ABDOMEN AND PELVIS WITH CONTRAST CLINICAL HISTORY: Left lower quadrant abdominal pain. Known abdominal aortic aneurysm. COMPARISON STUDY: CT of the abdomen and pelvis April 26, 2016 and abdominal series March 18, [address] November 27, 2016. TECHNIQUE: Following IV administration of 92 mL of [id number]-320, axial images of the abdomen and pelvis were obtained from the lung bases to the proximal femurs. Images were reviewed in the axial, sagittal, and coronal planes. IV contrast was administered without complication. CT DOSE: 306.11 mGy.cm FINDINGS: Pacer leads are partially imaged. There is stable aneurysmal dilatation of the distal descending thoracic aorta which measures 4.2 cm. This is unchanged since chest CT of November 27, 2016. A 3.3 cm mid abdominal aortic aneurysm is also unchanged. There is extensive plaque. There is no evidence for rupture. Calcifications along the right hepatic lobe are chronic. The liver, spleen, adrenal glands and pancreas are unremarkable. Several subcentimeter renal lesions are too small to characterize. These are likely benign. There is no hydronephrosis. There is no evidence for a bowel obstruction. No suspicious skeletal lesions are present. The uterus is surgically absent. There are surgical clips within the pelvis and lower abdomen. There is sigmoid diverticulosis without evidence for acute diverticulitis. IMPRESSION: 1. No acute process within the abdomen or pelvis. 2. Stable aneurysmal dilatation of the distal descending thoracic aorta and the abdominal aorta since chest CT of November 27, 2016. No rupture. Electronically signed by: Shahid Camarillo M.D. 03/31/2017 8:22 AM Dictated Date/Time: 03/31/2017 7:50 AM
[2017-06-03] MEDS ORDERED: PSYL58.636 PO (01:32)
[2017-06-03] MEDS ORDERED: DICL-201 PO (01:36)
[2017-06-03] MEDS ORDERED: HYDR12.55 PO (01:37)
[2017-06-03] MEDS ORDERED: CHOL20007 PO (01:39)
[2017-06-03] MEDS ORDERED: BISA1TAB15 PO (01:41)
[2017-06-03] MEDS ORDERED: FAMO1TAB68 PO (01:47)
[2017-06-03] MEDS ORDERED: MIRT15TA2 PO (08:35)
[2017-06-03] MEDS ORDERED: AMLO10TA2 PO (08:35)
[2017-06-03] MEDS ORDERED: METO50TA16 PO (08:35)
[2017-06-03] MEDS ORDERED: CLOP1TAB15 PO (10:48)
[2017-06-03] MEDS ORDERED: NMN5 PO (10:48)
[2017-06-03] MEDS ORDERED: ALBU18002 INH (10:48)
[2017-06-03] MEDS ORDERED: DONE1TAB11 PO (10:48)
[2017-06-03] MEDS ORDERED: OXYC1TAB3 PO (10:48)
[2017-06-03] MEDS ORDERED: ASPCH81X PO (10:48)
[2017-06-03] MEDS ORDERED: ACET-1256 PO (12:36)
[2017-06-03] MEDS ORDERED: PRAV40TA PO (12:36)
[2017-06-03] MEDS ORDERED: SENN-65 PO (12:36)
== END 2017-03-31 05:01 | disposition home or self-care (01) ==
LOC: EDBD 01:20 → C.EDB 01:21
DX: I71.4 Abdominal aortic aneurysm, without rupture (principal); R10.32 Left lower quadrant pain; Z87.440 Personal history of urinary (tract) infections; Z87.891 Personal history of nicotine dependence; Z79.82 Long term (current) use of aspirin; Z79.899 Other long term (current) drug therapy

== ENCOUNTER 2017-04-02 05:09 | Emergency (ER) | payer OTHER ==
[~2017-04-02] VITALS: Ht 172.7 cm; Wt 81.1 kg
[~2017-04-02 05:09] MED LIST changes: -ALPR-411 PO; -CYAN10005 PO; -DOCU100C31 PO; +HYDR-5688 PO; -LACT10SO17 PO; -NALO1TAB2 PO; +OLAN5TAB3 PO; -POLY335019 PO; -VTMD1000 PO
[2017-04-02 05:13] VITALS: BP 132/74; TEMP 36.6; O2SAT 96; Ht 172.7 cm; Wt 81.1 kg
[2017-04-02 05:17] VITALS: PULSE 72
[2017-04-02] MEDS ORDERED: LORAZEPAM 0.5 MG TAB PO STA (05:25)
--- NOTE | 2017-04-02 05:32 | EMERGENCY ROOM VISIT NOTE ---
History Report prepared by Conor: Kojo Swartz Under the Supervision of: Dr. Alo Jackman D.O. First contact with patient: 05:11 Chief Complaint: ABDOMINAL PAIN Stated Complaint: ABDOMINAL PAIN History of Present Illness The patient is a 76 year old female who presents to the Emergency Room via [facility] with complaints of recurrent abdominal pain and nausea that began at 2000 yesterday evening, 9 hours prior to arrival. She also complains diarrhea of cold sweats this evening. She has not vomited to this point. She elaborated that she was burping persistently this evening, and does not currently have any abdominal pain. The patient was in the Emergency Department two days ago for similar complaints. 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 A total of ten systems were reviewed and were otherwise negative. Past Medical & Surgical Medical Problems: (1) AAA (abdominal aortic aneurysm) (2) Benzodiazepine withdrawal (3) Left flank pain (4) Thoracic aortic aneurysm (5) UTI (urinary tract infection) Family History Patient reports no known family medical history. Social History Smoking Status: Former Smoker Alcohol Use: none Drug Use: none Marital Status: Housing Status: lives with family Occupation Status: retired Current/Historical Medications Scheduled Amlodipine Besylate (Norvasc), 10 MG PO DAILY Aspirin (Aspirin Chewable), 81 MG PO DAILY Cholecalciferol (Vitamin D3), 2,000 INTERUNIT PO DAILY Clopidogrel (Plavix), 75 MG PO DAILY Diclofenac (Voltaren), 75 MG PO BID Donepezil Hydrochloride (Donepezil Hcl), 5 MG PO HS Famotidine (Famotidine), 20 MG PO DAILY Hydrochlorothiazide (Hydrochlorothiazide), 12.5 MG PO DAILY Memantine (Namenda), 5 MG PO DAILY Metoprolol Tartrate (Lopressor) (Lopressor), 50 MG PO BID Mirtazapine Soltab (Remeron Soltab), 15 MG PO HS Olanzapine (Zyprexa Zydis Odt), 5 MG PO DAILY Oxycodone Immediate Rel Tab (Roxicodone Ir), 5 MG PO Q6H Pravastatin Sodium (Pravachol), 40 MG PO DAILY Psyllium (Metamucil Fiber), 1 DOSE PO DAILY Senna/Docusate Sod (Senokot S), 2 TAB PO HS Scheduled PRN Acetaminophen (Tylenol), 500 MG PO UD PRN for Pain Albuterol Sulfate (Proair Respiclick), 2 PUFFS INH Q4 PRN for SOB/Wheezing Bisacodyl (Bisacodyl), 5 MG PO TID PRN for Constipation Hydrocodone/Acetaminophen 5MG/325MG ([place] 5MG/325MG), 1 TABLET PO Q6H PRN for Pain Allergies Coded Allergies: No Known Allergies (Unverified , 04/02/17) Physical Exam Vital Signs Date Time Temp Pulse Resp B/P (MAP) Pulse Ox O2 Delivery O2 Flow Rate FiO2 04/02/17 05:17 72 04/02/17 05:13 36.6 82 24 132/74 96 Nasal Cannula 2.0 Physical Exam GENERAL: Awake, alert, very anxious appearing. HENT: Normocephalic, atraumatic. Oropharynx unremarkable. EYES: Normal conjunctiva. Sclera non-icteric. NECK: Supple. No nuchal rigidity. FROM. No JVD. RESPIRATORY: Clear to auscultation. CARDIAC: Regular rate, normal rhythm. Extremities warm and well perfused. Pulses equal. ABDOMEN: Soft, non-distended. No tenderness to palpation. No rebound or guarding. No masses. RECTAL: Deferred. MUSCULOSKELETAL: Chest examination reveals no tenderness. The back is symmetrical on inspection without obvious abnormality. There is no CVA tenderness to palpation. No joint edema. LOWER EXTREMITIES: Calves are equal size bilaterally and non-tender. No edema. No discoloration. NEURO: Normal sensorium. No sensory or motor deficits noted. SKIN: No rash or jaundice noted. Medical Decision & Procedures ED Course 0514: The patient was evaluated in room A11B. A complete history and physical exam was performed. 0529: Ordered 0.5 mg Ativan PO. 0531:After significant conversation with patient and daughter at bedside, they agree to treatment plan. The patient will be discharged home. Medical Decision Medication Reconciliation: I attest that I have personally reviewed the patient' s current medication list. Blood pressure screening: Patient was found to have normal blood pressure on screening and does not require follow-up. Differential Diagnosis include; Anxiety, reflux, gastritis. I do not believe there is any significant intraabdominal process at this time. Patient has had an extensive workup by myself recently and at [place] she was found to have a stable abdominal aneurysm. Per the patient and the patient' s daughter at bedside she has been staying in bed belching all the time and does not get out of bed. Patient states that in fact she is anxious. I discussed the evaluation with the patient and the patient's daughter we feel comfortable at this time treating the patient with benzodiazepines. Patient's abdomen is very soft. Impression Primary Impression: GERD (gastroesophageal reflux disease) Additional Impression: Acute anxiety Scribe Attestation The scribe's documentation has been prepared under my direction and personally reviewed by me in its entirety. I confirm that the note above accurately reflects all work, treatment, procedures, and medical decision making performed by me. Departure Information Dispostion Home / Self-Care Prescriptions Lorazepam (ATIVAN) 0.5 Mg Tab 0.5 MG PO TID, #10 TAB Prov: Alo Jackman, 04/02/17 Referrals Irene Foster (PCP) Patient Instructions Anxiety Disorder, ED GERD, [facility] Problem Qualifiers
[2017-04-02] MEDS ORDERED: LORA-741 PO (05:35)
[2017-06-03] MEDS ORDERED: PSYL58.636 PO (01:32)
[2017-06-03] MEDS ORDERED: DICL-201 PO (01:36)
[2017-06-03] MEDS ORDERED: HYDR12.55 PO (01:37)
[2017-06-03] MEDS ORDERED: CHOL20007 PO (01:39)
[2017-06-03] MEDS ORDERED: BISA1TAB15 PO (01:41)
[2017-06-03] MEDS ORDERED: FAMO1TAB68 PO (01:47)
[2017-06-03] MEDS ORDERED: AMLO10TA2 PO (08:35)
[2017-06-03] MEDS ORDERED: MIRT15TA2 PO (08:35)
[2017-06-03] MEDS ORDERED: METO50TA16 PO (08:35)
[2017-06-03] MEDS ORDERED: CLOP1TAB15 PO (10:48)
[2017-06-03] MEDS ORDERED: OXYC1TAB3 PO (10:48)
[2017-06-03] MEDS ORDERED: ALBU18002 INH (10:48)
[2017-06-03] MEDS ORDERED: DONE1TAB11 PO (10:48)
[2017-06-03] MEDS ORDERED: NMN5 PO (10:48)
[2017-06-03] MEDS ORDERED: ASPCH81X PO (10:48)
[2017-06-03] MEDS ORDERED: ACET-1256 PO (12:36)
[2017-06-03] MEDS ORDERED: SENN-65 PO (12:36)
[2017-06-03] MEDS ORDERED: PRAV40TA PO (12:36)
== END 2017-04-02 05:43 | disposition home or self-care (01) ==
LOC: EDBD 05:09 → C.EDA 05:10
DX: K21.9 Gastro-esophageal reflux disease without esophagitis (principal); R10.9 Unspecified abdominal pain; F41.9 Anxiety disorder, unspecified; I71.4 Abdominal aortic aneurysm, without rupture; Z87.891 Personal history of nicotine dependence; Z79.899 Other long term (current) drug therapy

== ENCOUNTER 2017-06-03 15:17 | Emergency (ER) | payer OTHER ==
[~2017-06-03] VITALS: Ht 172.7 cm; Wt 72.1 kg
[~2017-06-03 15:17] MED LIST changes: +ACET-1256 PO; +ALBU18002 INH; +AMLO10TA2 PO; +ASPCH81X PO; +BISA1TAB15 PO; +CHOL20007 PO; +CLOP1TAB15 PO; +DICL-201 PO; +DONE1TAB11 PO; +FAMO1TAB68 PO; +HYDR12.55 PO; +METO50TA16 PO; +MIRT15TA2 PO; +NMN5 PO; +OXYC1TAB3 PO; +PRAV40TA PO; +PSYL58.636 PO; +SENN-65 PO
[2017-06-03 15:24] VITALS: TEMP 36.4; Ht 172.7 cm; Wt 72.1 kg
[2017-06-03 15:58] VITALS: O2SAT 97
[2017-06-03 16:07] LABS: BASO % 0.4 %; BASO ABS # 0.05 K/uL (0-0.2); COMPLETE YES; EOS % 3.1 %; HEMATOCRIT 39.3 % (37-47); IG% 0.3 %; LYMPH ABS # 2.47 K/uL (1.2-3.4); MEAN CELL VOLUME 88.1 fL (80-100); MEAN CORPUSCULAR HEMOGLOBIN 29.8 pg (25-34); MEAN CORPUSCULAR HGB CONC 33.8 g/dl (32-36); MEAN PLATELET VOLUME 9.5 fL (7.4-10.4); MONO % 7.1 %; NEUT % 68.1 %; PLATELET COUNT 311 K/uL (130-400); RED BLOOD COUNT 4.46 M/uL (4.2-5.4); WHITE BLOOD COUNT 11.76 K/uL (4.8-10.8)
[2017-06-03] MEDS ORDERED: CYAN10005 PO (16:15)
[2017-06-03] MEDS ORDERED: SIME1CAP PO (16:15)
--- NOTE | 2017-06-03 16:20 | DIAGNOSTIC IMAGING REPORT ---
CHEST ONE VIEW PORTABLE CLINICAL HISTORY: Shortness of breath COMPARISON STUDY: 03/18/2017 FINDINGS: There are postsurgical changes of a midline sternotomy. There is a left subclavian dual-chamber central venous pacemaker. There is persistent aortic tortuosity/ectasia. There is no focal pulmonary consolidation. There is no failure. The patient appears mildly hyperinflated.[ IMPRESSION: Stable tortuosity/ectasia of the descending thoracic aorta. No acute findings. Electronically signed by: Gaudencio Craig M.D. 06/03/2017 4:19 PM Dictated Date/Time: 06/03/2017 4:17 PM
[2017-06-03 16:24] LABS: PARTIAL THROMBOPLASTIN RATIO 1.1; PROTHROMBIN TIME (PATIENT) 10.3 SECONDS (9.0-12.0)
[2017-06-03 16:26] LABS: ALT/SGPT 19 U/L (12-78); AST/SGOT 13 U/L (15-37); BLOOD UREA NITROGEN 14 mg/dl (7-18); BUN/CREATININE RATIO 16.2 (10-20); CALCIUM 8.8 mg/dl (8.5-10.1); CARBON DIOXIDE 27 mmol/L (21-32); CHLORIDE 110 mmol/L (98-107); CREATININE 0.84 mg/dl (0.60-1.20); GLUCOSE 104 mg/dl (70-99); POTASSIUM 4.2 mmol/L (3.5-5.1); SODIUM 142 mmol/L (136-145)
[2017-06-03 16:30] LABS: ALKALINE PHOSPHATASE 81 U/L (45-117); CKMB/CK RATIO 5.8 (0-3.0)
[2017-06-03 16:53] VITALS: BP 163/94; PULSE 76; O2SAT 98
--- NOTE | 2017-06-03 17:02 | EMERGENCY ROOM VISIT NOTE ---
History Report prepared by Conor: Meg Haywood Under the Supervision of: Dr. Julian Rg D.O. 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 The patient presents to the ED by EMS. She received a breathing treatment in route. She feels somewhat improved currently. She does not have breathing treatments at home. She says that she gets weak and had some pain in her side before. She denies any chest pain, cough , or cold. She is on oxygen 2 L at home. She has a history of anxiety and pacemaker. 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 A total of 10 systems reviewed and were otherwise negative. Past Medical & Surgical Medical Problems: (1) AAA (abdominal aortic aneurysm) (2) Benzodiazepine withdrawal (3) Left flank pain (4) Thoracic aortic aneurysm (5) UTI (urinary tract infection) Family History Patient reports no known family medical history. Social History Smoking Status: Former Smoker Alcohol Use: none Drug Use: none Marital Status: Housing Status: lives with family Occupation Status: retired Current/Historical Medications Scheduled Amlodipine Besylate (Norvasc), 10 MG PO DAILY Aspirin (Aspirin Chewable), 81 MG PO DAILY Cholecalciferol (Vitamin D3), 2,000 INTERUNIT PO DAILY Clopidogrel (Plavix), 75 MG PO DAILY Cyanocobalamin (Vitamin B-12), 1,000 MCG PO DAILY Donepezil Hydrochloride (Donepezil Hcl), 5 MG PO HS Famotidine (Famotidine), 20 MG PO DAILY Hydrochlorothiazide (Hydrochlorothiazide), 12.5 MG PO DAILY Memantine (Namenda), 5 MG PO DAILY Metoprolol Tartrate (Lopressor) (Lopressor), 50 MG PO BID Mirtazapine Soltab (Remeron Soltab), 15 MG PO HS Oxycodone Immediate Rel Tab (Roxicodone Ir), 5 MG PO Q6H Pravastatin Sodium (Pravachol), 40 MG PO DAILY Psyllium (Metamucil Fiber), 1 DOSE PO DAILY Senna/Docusate Sod (Senokot S), 2 TAB PO HS Simethicone (Gas-X Extra Strength), 125 MG PO prn Scheduled PRN Acetaminophen (Tylenol), 500 MG PO UD PRN for Pain Albuterol Sulfate (Proair Respiclick), 2 PUFFS INH Q4 PRN for SOB/Wheezing Bisacodyl (Bisacodyl), 5 MG PO TID PRN for Constipation Diclofenac (Voltaren), 75 MG PO BID PRN for Hydrocodone/Acetaminophen 5MG/325MG ([place] 5MG/325MG), 1 TABLET PO Q6H PRN for Pain Allergies Coded Allergies: No Known Allergies (Unverified , 04/02/17) Physical Exam Vital Signs Date Time Temp Pulse Resp B/P (MAP) Pulse Ox O2 Delivery O2 Flow Rate FiO2 06/03/17 16:53 76 16 163/94 98 Room Air 06/03/17 15:58 97 Nasal Cannula 2.0 06/03/17 15:27 83 06/03/17 15:24 Nasal Cannula 2.0 99 06/03/17 15:24 36.4 78 16 167/108 98 Nasal Cannula 2.0 06/03/17 15:22 98 Room Air Physical Exam CONSTITUTIONAL/VITAL SIGNS: Reviewed / noted above. GENERAL: Non-toxic in appearance. INTEGUMENTARY: Warm, dry, and [place]. HEAD: Normocephalic. EYES: without scleral icterus or trauma. ENT/OROPHARYNX: clear and moist. LYMPHADENOPATHY/NECK: Is supple without lymphadenopathy or meningismus. RESPIRATORY: Lungs clear and equal. CARDIOVASCULAR: Regular rate and rhythm. GI/ABDOMEN: Soft and nontender. No organomegaly or pulsatile mass. No rebound or guarding. Normal bowel sounds. EXTREMITIES: Warm and well perfused. BACK: No CVA tenderness. NEUROLOGICAL: Intact without focal deficits. PSYCHIATRIC: normal affect. MUSCULOSKELETAL: Normally developed with good muscle tone. Medical Decision & Procedures ER Provider Diagnostic Interpretation: X ray results and stated below per my interpretation and radiology interpretation. CHEST ONE VIEW PORTABLE CLINICAL HISTORY: Shortness of breath COMPARISON STUDY: 03/18/2017 FINDINGS: There are postsurgical changes of a midline sternotomy. There is a left subclavian dual-chamber central venous pacemaker. There is persistent aortic tortuosity/ectasia. There is no focal pulmonary consolidation. There is no failure. The patient appears mildly hyperinflated.[ IMPRESSION: Stable tortuosity/ectasia of the descending thoracic aorta. No acute findings. Electronically signed by: Gaudencio Craig M.D. 06/03/2017 4:19 PM Dictated Date/Time: 06/03/2017 4:17 PM Laboratory Results 06/03/17 15:55 Red Blood Count 4.46, Mean Corpuscular Volume 88.1, Mean Corpuscular Hemoglobin 29.8, Mean Corpuscular Hemoglobin Concent 33.8, Mean Platelet Volume 9.5, Neutrophils (%) (Auto) 68.1, Lymphocytes (%) (Auto) 21.0, Monocytes (%) (Auto) 7.1, Eosinophils (%) (Auto) 3.1, Basophils (%) (Auto) 0.4, Neutrophils # (Auto) 8.01, Lymphocytes # (Auto) 2.47, Monocytes # (Auto) 0.83, Eosinophils # (Auto) 0.36, Basophils # (Auto) 0.05 06/03/17 15:55 Test 06/03/17 15:55 White Blood Count 11.76 K/uL (4.8-10.8) Red Blood Count 4.46 M/uL (4.2-5.4) Hemoglobin 13.3 g/dL (12.0-16.0) Hematocrit 39.3 % (37-47) Mean Corpuscular Volume 88.1 fL (80-100) Mean Corpuscular Hemoglobin 29.8 pg (25-34) Mean Corpuscular Hemoglobin Concent 33.8 g/dl (32-36) Platelet Count 311 K/uL (130-400) Mean Platelet Volume 9.5 fL (7.4-10.4) Neutrophils (%) (Auto) 68.1 % Lymphocytes (%) (Auto) 21.0 % Monocytes (%) (Auto) 7.1 % Eosinophils (%) (Auto) 3.1 % Basophils (%) (Auto) 0.4 % Neutrophils # (Auto) 8.01 K/uL (1.4-6.5) Lymphocytes # (Auto) 2.47 K/uL (1.2-3.4) Monocytes # (Auto) 0.83 K/uL (0.11-0.59) Eosinophils # (Auto) 0.36 K/uL (0-0.5) Basophils # (Auto) 0.05 K/uL (0-0.2) RDW Standard Deviation 40.8 fL (36.4-46.3) RDW Coefficient of Variation 12.6 % (11.5-14.5) Immature Granulocyte % (Auto) 0.3 % Immature Granulocyte # (Auto) 0.04 K/uL (0.00-0.02) Prothrombin Time 10.3 SECONDS (9.0-12.0) Prothromb Time International Ratio 1.0 (0.9-1.1) Activated Partial Thromboplast Time 27.3 SECONDS (21.0-31.0) Partial Thromboplastin Ratio 1.1 Anion Gap 5.0 mmol/L (3-11) Est Creatinine Clear Calc Drug Dose 54.8 ml/min Estimated GFR () 76.6 Estimated GFR (Non- 66.1 BUN/Creatinine Ratio 16.2 (10-20) Calcium Level 8.8 mg/dl (8.5-10.1) Total Bilirubin 0.3 mg/dl (0.2-1) Aspartate Amino Transf (AST/SGOT) 13 U/L (15-37) Alanine Aminotransferase (ALT/SGPT) 19 U/L (12-78) Alkaline Phosphatase 81 U/L (45-117) Total Creatine Kinase 19 U/L (26-192) Creatine Kinase MB 1.1 ng/ml (0.5-3.6) Creatine Kinase MB Ratio 5.8 (0-3.0) Troponin I < 0.015 ng/ml (0-0.045) Total Protein 7.1 gm/dl (6.4-8.2) Albumin 3.6 gm/dl (3.4-5.0) Globulin 3.5 gm/dl (2.5-4.0) Albumin/Globulin Ratio 1.0 (0.9-2) Laboratory results as stated above per my review. ECG Indication: SOB/dyspnea Rate (beats per minute): 73 Rhythm: other (paced ventricular rhythm) Findings: no ectopy, other (no acute injury) ED Course 1523: Previous medical records were reviewed. The patient was evaluated in room A10. A complete history and physical examination was performed. 1703: On reevaluation, the patient is resting comfortably. I discussed the results and findings with the patient. She verbalized agreement of the treatment plan. She was discharged home. Medical Decision the differential was considered includes acute myocardial infarction, acute coronary syndrome, myocarditis, pericarditis, pericardial effusions /tamponad, esophageal perforation, pulmonary embolism, pneumonia, pneumothorax, cardiomyopathy, congestive heart, anemia , COPD/asthma exacerbation. This is a 77-year-old female who presents to the ED for chief complaint of shortness of breath. The patient also has a history of anxiety. She uses 2 L of oxygen at home. The patient received a nebulizer in route here by EMS and she states that she does feel somewhat better. The patient's physical exam did not reveal any obvious abnormalities. Her lungs were clear. She denies having any chest pains. A twelve-lead EKG reveals a paced ventricular rhythm. CBC and complete metabolic panel were normal. Troponin was negative. Chest x-ray did not show acute disease. The patient was told the results of the tests. She is felt to be stable for discharge and outpatient follow-up. Medication Reconcilliation Current Medication List: was personally reviewed by me Blood Pressure Screening Patient's blood pressure: Elevated blood pressure Blood pressure disposition: Referred to PCP Impression Primary Impression: COPD exacerbation Scribe Attestation The scribe's documentation has been prepared under my direction and personally reviewed by me in its entirety. I confirm that the note above accurately reflects all work, treatment, procedures, and medical decision making performed by me. Departure Information Dispostion Home / Self-Care Referrals Irene Foster (PCP) Additional Instructions Follow-up with your doctor for further care and evaluation in 4-5 days. Return to the emergency department for worsening or new symptoms or any concerns. You have been examined and treated today on an emergency basis only. This is not a substitute for, or an effort to provide, complete comprehensive medical care. It is impossible to recognize and treat all injuries or illnesses in a single emergency department visit. It is therefore important that you follow up closely with your doctor. Call as soon as possible for an appointment.
== END 2017-06-03 17:53 | disposition home or self-care (01) ==
LOC: EDBD 15:17 → C.EDB 15:19
DX: J44.1 Chronic obstructive pulmonary disease with (acute) exacerbation (principal); F41.9 Anxiety disorder, unspecified; Z87.440 Personal history of urinary (tract) infections; Z87.891 Personal history of nicotine dependence; Z79.82 Long term (current) use of aspirin; Z79.899 Other long term (current) drug therapy

== ENCOUNTER 2017-10-24 09:49 | Inpatient (IN) | payer OTHER ==
[~2017-10-24] VITALS: Ht 160 cm; Wt 76.4 kg
[~2017-10-24 09:49] MED LIST changes: +CYAN10005 PO; -HYDR-5688 PO; -OLAN5TAB3 PO; +SIME1CAP PO
[2017-10-24] MEDS ORDERED: SODIUM CHLORIDE 0.9% 1000ML 500 ML IV STA (09:54)
[2017-10-24] MEDS ORDERED: ONDANSETRON INJ 2 MG/ML 2 ML VIAL IV STA (09:54)
--- NOTE | 2017-10-24 10:07 | EMERGENCY ROOM VISIT NOTE ---
History Report prepared by Conor: Beatriz Perez Under the Supervision of: Dr. Noble Vasquez M.D. First contact with patient: 09:51 Stated Complaint: ABDOMINAL PAIN History of Present Illness The patient is a 77 year old female who presents to the Emergency Room with complaints of constant left sided abdominal pain beginning two days ago. The patient has not had a bowel movement in two days. She rates her pain as an 8/ 10. She denies any vomiting or fever. She reports taking a laxative with no relief. The patient lives with her daughter. Source of History: patient Onset: two days ago Position: abdomen Symptom Intensity: 8/10 Timing: constant Associated Symptoms: + abdominal pain, No fevers, No vomiting Review of Systems See HPI for pertinent positives & negatives. A total of 10 systems reviewed and were otherwise negative. Past Medical & Surgical Medical Problems: (1) AAA (abdominal aortic aneurysm) (2) Benzodiazepine withdrawal (3) Left flank pain (4) Thoracic aortic aneurysm (5) UTI (urinary tract infection) Family History Patient reports no known family medical history. Social History Smoking Status: Former Smoker Alcohol Use: none Drug Use: none Marital Status: Housing Status: lives with family Occupation Status: retired Current/Historical Medications Scheduled Alprazolam (Xanax), 0.5 MG PO TID Amlodipine Besylate (Norvasc), 10 MG PO DAILY Aspirin (Aspirin Chewable), 81 MG PO DAILY Cholecalciferol (Vitamin D3), 2,000 INTERUNIT PO DAILY Clopidogrel (Plavix), 75 MG PO DAILY Cyanocobalamin (Vitamin B-12), 1,000 MCG PO DAILY Donepezil Hydrochloride (Donepezil Hcl), 5 MG PO HS Home O2 Therapy (Oxygen), 2 LITERS NA PRN Hydrochlorothiazide (Hydrochlorothiazide), 12.5 MG PO DAILY Lubiprostone (Amitiza), 8 MCG PO BID Memantine (Namenda), 5 MG PO DAILY Metoprolol Tartrate (Lopressor) (Lopressor), 50 MG PO BID Mirtazapine Soltab (Remeron Soltab), 15 MG PO HS Oxycodone Immediate Rel Tab (Roxicodone Ir), 5 MG PO Q6H Pravastatin Sodium (Pravachol), 40 MG PO DAILY Psyllium (Metamucil Fiber), 1 DOSE PO DAILY Senna/Docusate Sod (Senokot S), 2 TAB PO HS Simethicone (Gas-X Extra Strength), 125 MG PO prn Scheduled PRN Acetaminophen (Tylenol), 500 MG PO UD PRN for Pain Albuterol Sulfate (Proair Respiclick), 2 PUFFS INH Q4 PRN for SOB/Wheezing Bisacodyl (Bisacodyl), 5 MG PO TID PRN for Constipation Diclofenac (Voltaren), 75 MG PO BID PRN for Allergies Coded Allergies: No Known Allergies (Unverified , 10/24/17) Physical Exam Vital Signs Date Time Temp Pulse Resp B/P (MAP) Pulse Ox O2 Delivery O2 Flow Rate FiO2 10/24/17 13:13 62 16 143/68 99 10/24/17 11:45 74 16 137/70 97 10/24/17 11:07 80 16 154/69 99 10/24/17 10:02 36.9 78 30 147/91 97 Room Air 10/24/17 09:58 75 Physical Exam GENERAL: Patient is in no acute distress. HEENT: No acute trauma, normocephalic atraumatic, mucous membranes moist, no nasal congestion, no scleral icterus. NECK: No stridor, no adenopathy, no meningismus, trachea is midline. LUNGS: Clear to auscultation bilaterally, no wheeze, no rhonchi, breath sounds equal. HEART: Without murmurs gallops or rubs, regular rate and rhythm. ABDOMEN: Tender along entire left side. Soft, bowel sounds positive, no hernias , no peritonitis. EXTREMITIES: No cyanosis or edema, full range of motion of all the joints without pain or difficulty, no signs for acute trauma. NEUROLOGIC: Oriented x 3, no acute motor or sensory deficits, no focal weakness. SKIN: No rash, no jaundice, no diaphoresis. 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 Partially visualized 2-lead pacer remain sternotomy wires. Lung bases: Extensive respiratory motion artifact at the lung bases limits evaluation of the parenchyma. Minimal nodularity in the lateral right middle lobe, possibly scarring. Trace subpleural groundglass opacity and reticulation in the lateral basal left lower lobe, possibly postinfectious or postinflammatory. Passive atelectasis along the medial basal left lower lobe secondary to the aneurysmal dilatation of the descending thoracic aorta. A 2-lead pacer is partially visualized. Normal heart size. Aortic valve and coronary artery calcification. No pericardial or pleural effusion. Liver: Normal morphology. Normal density. Parenchymal calcification along the inferior right hepatic lobe may represent posttraumatic or postsurgical change. Biliary: No intrahepatic or extrahepatic biliary ductal dilatation. Normal gallbladder. Pancreas: Mild parenchymal atrophy. Spleen: Normal noncontrast appearance. Adrenal glands: Normal noncontrast appearance. Kidneys and ureters: Normal noncontrast appearance. No nephrolithiasis. No hydronephrosis. Normal ureters. Bladder: Normal. Pelvic organs: Uterus surgically absent. Bowel: Limited diverticulosis of the sigmoid colon. Mild stool burden. I pulmonary hypertrophy of the ileocecal valve. The appendix is not visualized though no inflammatory changes in the are associated with the cecum, which is adjacent to the gallbladder fossa. No bowel obstruction. Peritoneal cavity: No free fluid or intraperitoneal gas. Lymph nodes: No gross lymphadenopathy allowing for noncontrast technique. Extensive surgical clips in the biiliac regions likely from prior lymphadenectomy. Vasculature: Extensive atherosclerosis of the abdominal aorta. Aneurysmal dilatation of the descending thoracic aorta. The aorta measures 4.4 cm in transverse dimension at the aortic hiatus, 3.1 cm at the midportion and 1.7 cm immediately proximal to the iliac bifurcation. Inward displacement of intimal calcifications at several sites along the aortoiliac course most consistent with chronic short segment dissection. This extends into the left common iliac artery. No periaortic inflammatory change or hematoma. Abdominal wall: Normal. Musculoskeletal: Osteopenia. IMPRESSION: 1. Aneurysm of the descending thoracic aorta to the level of the mid abdominal aorta with decreasing caliber inferiorly. The aorta maximally measures 4.4 cm at the aortic hiatus. Evidence of chronic short segment dissection. No acute aortic injury allowing for noncontrast technique. 2. No bowel obstruction or acute abdominal pathology. 3. Postsurgical changes of hysterectomy and extensive lymphadenectomy. 4. Osteopenia Electronically signed by: Jagdeep Méndez M.D. CHEST ONE VIEW PORTABLE FINDINGS: Left subclavian pacer with leads to the right atrium and right ventricular apex. Median sternotomy wires and mediastinal surgical clips unchanged. Atherosclerosis of aortic arch. Tortuosity of the prominent descending thoracic aorta. Cardiac silhouette mildly enlarged. Mildly prominent lung markings at the lung bases. No focal infiltrate. No large effusion or pneumothorax. Osseous structures normal. Slight elevation of the left hemidiaphragm, unchanged. Upper abdomen otherwise normal, without gross evidence of pneumoperitoneum. IMPRESSION: 1. Atherosclerotic disease of the aorta, which is tortuous and prominent. 2. No acute cardiopulmonary disease. 3. No free air under the diaphragm. Electronically signed by: Jagdeep Méndez M.D. Laboratory Results 10/24/17 10:05 Red Blood Count 4.87, Mean Corpuscular Volume 85.2, Mean Corpuscular Hemoglobin 29.0, Mean Corpuscular Hemoglobin Concent 34.0, Mean Platelet Volume 9.3, Neutrophils (%) (Auto) 59.7, Lymphocytes (%) (Auto) 28.1, Monocytes (%) (Auto) 9.3, Eosinophils (%) (Auto) 2.0, Basophils (%) (Auto) 0.6, Neutrophils # (Auto) 7.04, Lymphocytes # (Auto) 3.30, Monocytes # (Auto) 1.09, Eosinophils # (Auto) 0.23, Basophils # (Auto) 0.07 10/24/17 10:05 Test 10/24/17 10:05 10/24/17 11:00 White Blood Count 11.76 K/uL (4.8-10.8) Red Blood Count 4.87 M/uL (4.2-5.4) Hemoglobin 14.1 g/dL (12.0-16.0) Hematocrit 41.5 % (37-47) Mean Corpuscular Volume 85.2 fL (80-100) Mean Corpuscular Hemoglobin 29.0 pg (25-34) Mean Corpuscular Hemoglobin Concent 34.0 g/dl (32-36) Platelet Count 332 K/uL (130-400) Mean Platelet Volume 9.3 fL (7.4-10.4) Neutrophils (%) (Auto) 59.7 % Lymphocytes (%) (Auto) 28.1 % Monocytes (%) (Auto) 9.3 % Eosinophils (%) (Auto) 2.0 % Basophils (%) (Auto) 0.6 % Neutrophils # (Auto) 7.04 K/uL (1.4-6.5) Lymphocytes # (Auto) 3.30 K/uL (1.2-3.4) Monocytes # (Auto) 1.09 K/uL (0.11-0.59) Eosinophils # (Auto) 0.23 K/uL (0-0.5) Basophils # (Auto) 0.07 K/uL (0-0.2) RDW Standard Deviation 38.9 fL (36.4-46.3) RDW Coefficient of Variation 12.7 % (11.5-14.5) Immature Granulocyte % (Auto) 0.3 % Immature Granulocyte # (Auto) 0.03 K/uL (0.00-0.02) Anion Gap 10.0 mmol/L (3-11) Est Creatinine Clear Calc Drug Dose 54.7 ml/min Estimated GFR () 80.1 Estimated GFR (Non- 69.1 BUN/Creatinine Ratio 12.5 (10-20) Lactic Acid Level 3.5 mmol/L (0.4-2.0) Calcium Level 9.4 mg/dl (8.5-10.1) Total Bilirubin 0.5 mg/dl (0.2-1) Aspartate Amino Transf (AST/SGOT) 11 U/L (15-37) Alanine Aminotransferase (ALT/SGPT) 16 U/L (12-78) Alkaline Phosphatase 102 U/L (45-117) Total Protein 7.8 gm/dl (6.4-8.2) Albumin 4.1 gm/dl (3.4-5.0) Globulin 3.7 gm/dl (2.5-4.0) Albumin/Globulin Ratio 1.1 (0.9-2) Lipase 137 U/L (73-393) Urine Color YELLOW Urine Appearance CLEAR (CLEAR) Urine pH 8.0 (4.5-7.5) Urine Specific [place] 1.006 (1.000-1.030) Urine Protein NEG (NEG) Urine Glucose (UA) NEG (NEG) Urine Ketones NEG (NEG) Urine Occult Blood NEG (NEG) Urine Nitrite NEG (NEG) Urine Bilirubin NEG (NEG) Urine Urobilinogen NEG (NEG) Urine Leukocyte Esterase NEG (NEG) Laboratory results reviewed by me. Medications Administered Medications (Trade) Dose Ordered Sig/Darlyn Route Start Time Stop Time Status Last Admin Dose Admin Sodium Chloride 500 ml @ 999 mls/hr Q31M STAT IV 10/24/17 09:54 10/24/17 10:24 DC 10/24/17 09:54 999 MLS/HR Ondansetron HCl (Zofran Inj) 4 mg NOW STAT IV 10/24/17 09:54 10/24/17 09:57 DC 10/24/17 10:15 4 MG Morphine Sulfate (MoRPHine SULFATE INJ) 2 mg Q30M PRN IV 10/24/17 10:00 11/07/17 09:59 10/24/17 10:16 2 MG Sodium Chloride 500 ml @ 999 mls/hr Q31M STAT IV 10/24/17 10:41 10/24/17 11:11 DC 10/24/17 11:09 999 MLS/HR Morphine Sulfate (MoRPHine SULFATE INJ) 2 mg STK-MED ONCE .ROUTE 10/24/17 13:09 10/24/17 13:10 DC 10/24/17 13:11 2 MG ED Course 0952: The patient was evaluated in room A10. A complete history and physical exam was performed. 0954: Ordered Zofran Inj 4 mg IV, Sodium Chloride 500 ml @ 999 mls/hr IV. 1000: Ordered Morphine Sulfate 2 mg IV. 1041: Ordered Sodium Chloride 500 ml @ 999 mls/hr IV. 1222: The patient is feeling a little better but is still having some pain. I talked to her about coming into the hospital and she is agreeable. 1237: Discussed the patient's case Dr. Avery Man[place] [place] The patient will be evaluated for further management. Medical Decision Differential diagnoses include: constipation, diverticulitis, hernia, bowel obstruction, aneurysm, dehydration, electrolyte imbalance, UTI. There is a mild leukocytosis, this could be consistent with infection or possibly her pain. No concerning anemia. No significant electrolyte abnormality, kidney failure or hepatitis. There is no pancreatitis. Urinalysis does not show infection. Lactic acid level is elevated consistent with possible bowel ischemia. Abdominal and pelvis CT shows an abdominal aneurysm, there was no leak noted. No bowel obstruction, no significant constipation, no evidence for abscess or acute diverticulitis. By my exam, there was no peritonitis or obvious hernia. The patient was not toxic or febrile. The patient received IV saline, IV Zofran and IV morphine. She is more comfortable. The patient presents with abdominal pain that she thought may be from constipation. I am concerned that her pain may be secondary to bowel ischemia. I did speak with the patient and case management. The on-call hospitalist has been consulted. A hospital stay for further workup was felt warranted. The patient is aware of her abdominal aneurysm and dilatation-this is not a new finding. She states that she does not want any surgical intervention. Medication Reconcilliation Current Medication List: was personally reviewed by me Blood Pressure Screening Patient's blood pressure: Elevated blood pressure Blood pressure disposition: Elevated BP felt to be situational Consults Time Called: 1234 Consulting Physician: Dr. Avery Man[facility] [place] Returned Call: 1237 Discussed the patient's case. The patient will be evaluated for further management. Impression Primary Impression: Left sided abdominal pain Additional Impressions: Leukocytosis Elevated lactic acid level Scribe Attestation The scribe's documentation has been prepared under my direction and personally reviewed by me in its entirety. I confirm that the note above accurately reflects all work, treatment, procedures, and medical decision making performed by me. Departure Information Dispostion Being Evaluated By Hospitalist Referrals Irene Foster (PCP) Problem Qualifiers
[2017-10-24 10:15] LABS: BASO % 0.6 %; BASO ABS # 0.07 K/uL (0-0.2); EOS ABS # 0.23 K/uL (0-0.5); HEMATOCRIT 41.5 % (37-47); HEMOGLOBIN 14.1 g/dL (12.0-16.0); IG# 0.03 K/uL (0.00-0.02); LYMPH % 28.1 %; MEAN CELL VOLUME 85.2 fL (80-100); MEAN PLATELET VOLUME 9.3 fL (7.4-10.4); MONO % 9.3 %; MONO ABS # 1.09 K/uL (0.11-0.59); NEUT % 59.7 %; NEUT ABS # 7.04 K/uL (1.4-6.5); PLATELET COUNT 332 K/uL (130-400); RED CELL DISTRIBUTION WIDTH CV 12.7 % (11.5-14.5); RED CELL DISTRIBUTION WIDTH SD 38.9 fL (36.4-46.3); WHITE BLOOD COUNT 11.76 K/uL (4.8-10.8)
[2017-10-24] MEDS: MoRPHine SULFATE 4 MG/ML 1 ML CARP\\VIAL IV PRN ×2 (10:16→13:11)
[2017-10-24] MEDS ORDERED: OXGN (10:18)
[2017-10-24] MEDS ORDERED: ALPR-411 PO (10:18)
[2017-10-24] MEDS ORDERED: LUBI8CAP4 PO (10:18)
--- NOTE | 2017-10-24 10:22 | DIAGNOSTIC IMAGING REPORT ---
CHEST ONE VIEW PORTABLE CLINICAL HISTORY: 77 years-old Female presenting with abd pain, poss bowel rupture. TECHNIQUE: Portable upright AP view of the chest was obtained. COMPARISON: 06/03/2017. FINDINGS: Left subclavian pacer with leads to the right atrium and right ventricular apex. Median sternotomy wires and mediastinal surgical clips unchanged. Atherosclerosis of aortic arch. Tortuosity of the prominent descending thoracic aorta. Cardiac silhouette mildly enlarged. Mildly prominent lung markings at the lung bases. No focal infiltrate. No large effusion or pneumothorax. Osseous structures normal. Slight elevation of the left hemidiaphragm, unchanged. Upper abdomen otherwise normal, without gross evidence of pneumoperitoneum. IMPRESSION: 1. Atherosclerotic disease of the aorta, which is tortuous and prominent. 2. No acute cardiopulmonary disease. 3. No free air under the diaphragm. Electronically signed by: Jagdeep Méndez M.D. 10/24/2017 10:21 AM Dictated Date/Time: 10/24/2017 10:19 AM
[2017-10-24 10:34] LABS: ALBUMIN 4.1 gm/dl (3.4-5.0); CALCIUM 9.4 mg/dl (8.5-10.1); CREATININE 0.81 mg/dl (0.60-1.20); POTASSIUM 3.3 mmol/L (3.5-5.1)
[2017-10-24 10:37] LABS: TOTAL PROTEIN 7.8 gm/dl (6.4-8.2)
[2017-10-24] MEDS ORDERED: SODIUM CHLORIDE 0.9% 500ML 500 ML IV STA (10:41)
--- NOTE | 2017-10-24 10:54 | DIAGNOSTIC IMAGING REPORT ---
ABD/PELVIS NO IV OR ORAL CONT CLINICAL HISTORY: 77 years-old Female presenting with ABD PAIN, POSSIBLE OBSTRUCTION, NO CONTRAST. TECHNIQUE: Multidetector CT of the abdomen and pelvis was performed without the use of intravenous contrast. IV contrast: None. A dose lowering technique was used consistent with the principles of ALARA (as low as reasonably achievable). COMPARISON: 03/31/2017. CT DOSE (mGy.cm): The estimated cumulative dose is 356.94 mGy.cm. 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 Partially visualized 2-lead pacer remain sternotomy wires. Lung bases: Extensive respiratory motion artifact at the lung bases limits evaluation of the parenchyma. Minimal nodularity in the lateral right middle lobe, possibly scarring. Trace subpleural groundglass opacity and reticulation in the lateral basal left lower lobe, possibly postinfectious or postinflammatory. Passive atelectasis along the medial basal left lower lobe secondary to the aneurysmal dilatation of the descending thoracic aorta. A 2-lead pacer is partially visualized. Normal heart size. Aortic valve and coronary artery calcification. No pericardial or pleural effusion. Liver: Normal morphology. Normal density. Parenchymal calcification along the inferior right hepatic lobe may represent posttraumatic or postsurgical change. Biliary: No intrahepatic or extrahepatic biliary ductal dilatation. Normal gallbladder. Pancreas: Mild parenchymal atrophy. Spleen: Normal noncontrast appearance. Adrenal glands: Normal noncontrast appearance. Kidneys and ureters: Normal noncontrast appearance. No nephrolithiasis. No hydronephrosis. Normal ureters. Bladder: Normal. Pelvic organs: Uterus surgically absent. Bowel: Limited diverticulosis of the sigmoid colon. Mild stool burden. I pulmonary hypertrophy of the ileocecal valve. The appendix is not visualized though no inflammatory changes in the are associated with the cecum, which is adjacent to the gallbladder fossa. No bowel obstruction. Peritoneal cavity: No free fluid or intraperitoneal gas. Lymph nodes: No gross lymphadenopathy allowing for noncontrast technique. Extensive surgical clips in the biiliac regions likely from prior lymphadenectomy. Vasculature: Extensive atherosclerosis of the abdominal aorta. Aneurysmal dilatation of the descending thoracic aorta. The aorta measures 4.4 cm in transverse dimension at the aortic hiatus, 3.1 cm at the midportion and 1.7 cm immediately proximal to the iliac bifurcation. Inward displacement of intimal calcifications at several sites along the aortoiliac course most consistent with chronic short segment dissection. This extends into the left common iliac artery. No periaortic inflammatory change or hematoma. Abdominal wall: Normal. Musculoskeletal: Osteopenia. IMPRESSION: 1. Aneurysm of the descending thoracic aorta to the level of the mid abdominal aorta with decreasing caliber inferiorly. The aorta maximally measures 4.4 cm at the aortic hiatus. Evidence of chronic short segment dissection. No acute aortic injury allowing for noncontrast technique. 2. No bowel obstruction or acute abdominal pathology. 3. Postsurgical changes of hysterectomy and extensive lymphadenectomy. 4. Osteopenia Electronically signed by: Jagdeep Méndez M.D. 10/24/2017 10:53 AM Dictated Date/Time: 10/24/2017 10:42 AM
[2017-10-24] MEDS ORDERED: MoRPHine SULFATE 2 MG/ML CARP ONE (13:09)
[2017-10-24 14:20] VITALS: O2SAT 97; Ht 160 cm; Wt 76.4 kg
[2017-10-24] MEDS ORDERED: ACETAMINOPHEN 500 MG TAB PO PRN (15:15)
[2017-10-24] MEDS ORDERED: BISACODYL 5 MG TABEC PO PRN (15:15)
[2017-10-24] MEDS ORDERED: ACETAMINOPHEN 325 MG TAB PO PRN (15:15)
[2017-10-24] MEDS ORDERED: POLYETHYLENE (MIRALAX) 17 GM PACK PO PRN (15:15)
[2017-10-24] MEDS ORDERED: ALBUTEROL 0.5% NEB SOLN 2.5 MG/0.5 ML VIAL INH PRN (15:15)
[2017-10-24] MEDS ORDERED: ONDANSETRON INJ 2 MG/ML 2 ML VIAL IV PRN (15:15)
[2017-10-24] MEDS ORDERED: MAGNESIUM HYDROXIDE SUSP 30 ML UDC PO PRN (15:15)
[2017-10-24] MEDS ORDERED: ALUMINUM/MAGNESIUM/SIMETH (MAALOX MAX) 30 ML UDC PO PRN (15:15)
[2017-10-24] MEDS ORDERED: CIPROFLOXACIN / D5W 400 MG in PREMIXED IN D5W 200 ML IV ONE (15:19)
[2017-10-24] MEDS ORDERED: CIPROFLOXACIN 400MG / 200ML D5W ONE (15:29)
[2017-10-24] MEDS ORDERED: MoRPHine SULFATE 2 MG/ML CARP IV PRN (15:30)
[2017-10-24] MEDS ORDERED: NON-FORMULARY MEDICATION SCH (15:30)
--- NOTE | 2017-10-24 15:39 | History and Physical ---
History & Physical Date & Time of Service: Oct 24, 2017 at 15:26 Chief Complaint: Abdominal Pain Primary Care Physician: Irene Foster History of Present Illness Source: patient, family (Daughter) Ms. Powell is a 77 y/o female with PMHx of CAD, Suspected COPD, HTN, AAA, S/P Pacer, and Anxiety/Depression/Dementia who presents to the ED c/o L sided abdominal pain x 2 days. She has had chronic left-sided abdominal pain that is believed to be related to her known AAA. However, she reports this pain has acutely worsened over the past 2 days. She describes this pain as a "knot" in her side that is also stabbing in quality. She denies any alleviating or aggravating factors. Daughter at bedside states that she was previously seen by pain management in [place] but is currently not established and her PCP will not prescribe pain medications. Patient does have Ultram but daughter reports she rarely takes this as it does not seem to help. Daughter denies a prescription for any opioid medications, and none is present in the bag that she brought with her. Patient and daughter initially thought this pain was related to decreased bowel movements as they report her last bowel movement was approximately 2 days ago. She has had ongoing issues with constipation. She was prescribed Amitiza and reports this seems to help. She also tried a laxative with no relief at home. She denies fevers/chills, chest pain, shortness of breath, nausea/vomiting, dysuria, diarrhea, melena/hematochezia. She denies any recent illnesses. In the ED, patient is afebrile with mild leukocytosis of 11.76. Lactic acid is 3.5. CT shows descending thoracic aortic aneurysm measuring 4.4 cm at the aortic hiatus, 3.1 cm at midportion, and 1.7 cm at proximal iliac bifurcation. CT abdomen reviewed from March 2017 which shows mild enlargement from 4.2 cm to 4.[address] did not mention findings of chronic dissections. Obtain stat d-dimer which is mildly elevated at 960. These dissections are possible to be chronic as would expect a lot higher d-dimer in setting of acute dissection. Did discuss findings with patient and daughter who have both been adamant that she does not want any surgical intervention for her AAA. Patient is on chronic O2 at home as needed. She is currently on room air and denies chest pain or shortness of breath and PE is unlikely. Past Medical/Surgical History 1. AAA 2. Hypertension 3. CAD 4. COPD 5. S/P Pacemaker 6. Anxiety/depression 7. Dementia Family History Hypertension Stroke Social History Smoking Status: Former Smoker Smokeless Tobacco Use: No Alcohol Use: none Drug Use: none Marital Status: Housing status: lives with family Occupational Status: retired Immunizations History of Influenza Vaccine: No History of Tetanus Vaccine?: No History of Pneumococcal: No History of Hepatitis B Vaccine: No Allergies Coded Allergies: No Known Allergies (Unverified , 10/24/17) Home Medications Scheduled Alprazolam (Xanax), 0.5 MG PO TID Amlodipine Besylate (Norvasc), 10 MG PO DAILY Aspirin (Aspirin Chewable), 81 MG PO DAILY Cholecalciferol (Vitamin D3), 2,000 INTERUNIT PO DAILY Clopidogrel (Plavix), 75 MG PO DAILY Cyanocobalamin (Vitamin B-12), 1,000 MCG PO DAILY Donepezil Hydrochloride (Donepezil Hcl), 5 MG PO HS Home O2 Therapy (Oxygen), 2 LITERS NA PRN Hydrochlorothiazide (Hydrochlorothiazide), 12.5 MG PO DAILY Lubiprostone (Amitiza), 8 MCG PO BID Memantine (Namenda), 5 MG PO DAILY Metoprolol Tartrate (Lopressor) (Lopressor), 50 MG PO BID Mirtazapine Soltab (Remeron Soltab), 15 MG PO HS Oxycodone Immediate Rel Tab (Roxicodone Ir), 5 MG PO Q6H Pravastatin Sodium (Pravachol), 40 MG PO DAILY Psyllium (Metamucil Fiber), 1 DOSE PO DAILY Senna/Docusate Sod (Senokot S), 2 TAB PO HS Simethicone (Gas-X Extra Strength), 125 MG PO prn Scheduled PRN Acetaminophen (Tylenol), 500 MG PO UD PRN for Pain Albuterol Sulfate (Proair Respiclick), 2 PUFFS INH Q4 PRN for SOB/Wheezing Bisacodyl (Bisacodyl), 5 MG PO TID PRN for Constipation Diclofenac (Voltaren), 75 MG PO BID PRN for Review of Systems Constitutional: No fever, No chills, No fatigue ENT: No nasal symptoms, No sore throat, No trouble swallowing Respiratory: No cough, No shortness of breath Cardiovascular: No chest pain, No orthopnea, No palpitations Abdomen: + pain (L-Sided - mid to lower abdomen), + constipation, No nausea, No vomiting, No diarrhea, No GI bleeding Musculoskeletal: No swelling, No calf pain Hematologic / Lymphatic: No abnormal bleeding/bruising Integumentary: No rash Physical Exam Vital Signs Date Time Temp Pulse Resp B/P (MAP) Pulse Ox O2 Delivery O2 Flow Rate FiO2 10/24/17 14:20 97 Room Air 10/24/17 14:00 84 16 138/70 97 10/24/17 13:13 62 16 143/68 99 10/24/17 11:45 74 16 137/70 97 10/24/17 11:07 80 16 154/69 99 10/24/17 10:02 36.9 78 30 147/91 97 Room Air 10/24/17 09:58 75 General Appearance: WD/WN, no apparent distress Head: normocephalic, atraumatic Eyes: sclerae normal ENT: hearing grossly normal Neck: supple, no JVD, trachea midline Respiratory/Chest: lungs clear, normal breath sounds, no respiratory distress, no accessory muscle use Cardiovascular: regular rate, rhythm Abdomen/GI: normal bowel sounds, non tender, soft Extremities/Musculoskelatal: no calf tenderness, + pertinent finding (b/l lymphedema - mild) Neurologic/Psych: alert, oriented x 3 Skin: normal color, warm/dry Diagnostics Laboratory Results Results Past 24 Hours Test 10/24/17 10:05 10/24/17 11:00 10/24/17 14:11 Range/Units White Blood Count 11.76 4.8-10.8 K/uL Red Blood Count 4.87 4.2-5.4 M/uL Hemoglobin 14.1 12.0-16.0 g/dL Hematocrit 41.5 37-47 % Mean Corpuscular Volume 85.2 80-100 fL Mean Corpuscular Hemoglobin 29.0 25-34 pg Mean Corpuscular Hemoglobin Concent 34.0 32-36 g/dl Platelet Count 332 130-400 K/uL Mean Platelet Volume 9.3 7.4-10.4 fL Neutrophils (%) (Auto) 59.7 % Lymphocytes (%) (Auto) 28.1 % Monocytes (%) (Auto) 9.3 % Eosinophils (%) (Auto) 2.0 % Basophils (%) (Auto) 0.6 % Neutrophils # (Auto) 7.04 1.4-6.5 K/uL Lymphocytes # (Auto) 3.30 1.2-3.4 K/uL Monocytes # (Auto) 1.09 0.11-0.59 K/uL Eosinophils # (Auto) 0.23 0-0.5 K/uL Basophils # (Auto) 0.07 0-0.2 K/uL RDW Standard Deviation 38.9 36.4-46.3 fL RDW Coefficient of Variation 12.7 11.5-14.5 % Immature Granulocyte % (Auto) 0.3 % Immature Granulocyte # (Auto) 0.03 0.00-0.02 K/uL Sodium Level 140 136-145 mmol/L Potassium Level 3.3 3.5-5.1 mmol/L Chloride Level 100 98-107 mmol/L Carbon Dioxide Level 30 21-32 mmol/L Anion Gap 10.0 3-11 mmol/L Blood Urea Nitrogen 10 7-18 mg/dl Creatinine 0.81 0.60-1.20 mg/dl Est Creatinine Clear Calc Drug Dose 54.7 ml/min Estimated GFR () 80.1 Estimated GFR (Non- 69.1 BUN/Creatinine Ratio 12.5 10-20 Random Glucose 100 70-99 mg/dl Lactic Acid Level 3.5 1.3 0.4-2.0 mmol/L Calcium Level 9.4 8.5-10.1 mg/dl Total Bilirubin 0.5 0.2-1 mg/dl Aspartate Amino Transf (AST/SGOT) 11 15-37 U/L Alanine Aminotransferase (ALT/SGPT) 16 12-78 U/L Alkaline Phosphatase 102 45-117 U/L Total Protein 7.8 6.4-8.2 gm/dl Albumin 4.1 3.4-5.0 gm/dl Globulin 3.7 2.5-4.0 gm/dl Albumin/Globulin Ratio 1.1 0.9-2 Lipase 137 73-393 U/L Urine Color YELLOW Urine Appearance CLEAR CLEAR Urine pH 8.0 4.5-7.5 Urine Specific [place] 1.006 1.000-1.030 Urine Protein NEG NEG Urine Glucose (UA) NEG NEG Urine Ketones NEG NEG Urine Occult Blood NEG NEG Urine Nitrite NEG NEG Urine Bilirubin NEG NEG Urine Urobilinogen NEG NEG Urine Leukocyte Esterase NEG NEG D-Dimer 960 0-500 ug/L FEU Diagnostic Radiology ABD/PELVIS NO IV OR ORAL CONT FINDINGS: Waterproof Bag Sewer topogram: Extensive surgical clips in the abdomen and pelvis. Partially visualized 2-lead pacer remain sternotomy wires. Lung bases: Extensive respiratory motion artifact at the lung bases limits evaluation of the parenchyma. Minimal nodularity in the lateral right middle lobe, possibly scarring. Trace subpleural groundglass opacity and reticulation in the lateral basal left lower lobe, possibly postinfectious or postinflammatory. Passive atelectasis along the medial basal left lower lobe secondary to the aneurysmal dilatation of the descending thoracic aorta. A 2-lead pacer is partially visualized. Normal heart size. Aortic valve and coronary artery calcification. No pericardial or pleural effusion. Liver: Normal morphology. Normal density. Parenchymal calcification along the inferior right hepatic lobe may represent posttraumatic or postsurgical change. Biliary: No intrahepatic or extrahepatic biliary ductal dilatation. Normal gallbladder. Pancreas: Mild parenchymal atrophy. Spleen: Normal noncontrast appearance. Adrenal glands: Normal noncontrast appearance. Kidneys and ureters: Normal noncontrast appearance. No nephrolithiasis. No hydronephrosis. Normal ureters. Bladder: Normal. Pelvic organs: Uterus surgically absent. Bowel: Limited diverticulosis of the sigmoid colon. Mild stool burden. I pulmonary hypertrophy of the ileocecal valve. The appendix is not visualized though no inflammatory changes in the are associated with the cecum, which is adjacent to the gallbladder fossa. No bowel obstruction. Peritoneal cavity: No free fluid or intraperitoneal gas. Lymph nodes: No gross lymphadenopathy allowing for noncontrast technique. Extensive surgical clips in the biiliac regions likely from prior lymphadenectomy. Vasculature: Extensive atherosclerosis of the abdominal aorta. Aneurysmal dilatation of the descending thoracic aorta. The aorta measures 4.4 cm in transverse dimension at the aortic hiatus, 3.1 cm at the midportion and 1.7 cm immediately proximal to the iliac bifurcation. Inward displacement of intimal calcifications at several sites along the aortoiliac course most consistent with chronic short segment dissection. This extends into the left common iliac artery. No periaortic inflammatory change or hematoma. Abdominal wall: Normal. Musculoskeletal: Osteopenia. IMPRESSION: 1. Aneurysm of the descending thoracic aorta to the level of the mid abdominal aorta with decreasing caliber inferiorly. The aorta maximally measures 4.4 cm at the aortic hiatus. Evidence of chronic short segment dissection. No acute aortic injury allowing for noncontrast technique. 2. No bowel obstruction or acute abdominal pathology. 3. Postsurgical changes of hysterectomy and extensive lymphadenectomy. 4. Osteopenia CHEST ONE VIEW PORTABLE FINDINGS: Left subclavian pacer with leads to the right atrium and right ventricular apex. Median sternotomy wires and mediastinal surgical clips unchanged. Atherosclerosis of aortic arch. Tortuosity of the prominent descending thoracic aorta. Cardiac silhouette mildly enlarged. Mildly prominent lung markings at the lung bases. No focal infiltrate. No large effusion or pneumothorax. Osseous structures normal. Slight elevation of the left hemidiaphragm, unchanged. Upper abdomen otherwise normal, without gross evidence of pneumoperitoneum. IMPRESSION: 1. Atherosclerotic disease of the aorta, which is tortuous and prominent. 2. No acute cardiopulmonary disease. 3. No free air under the diaphragm. Impression Assessment and Plan Ms. Powell is a 77 y/o female with PMHx of CAD, Suspected COPD, HTN, AAA, S/P Pacer, and Anxiety/Depression/Dementia who presents to the ED c/o L sided abdominal pain x 2 days. Possible Gastroenteritis vs Ischemic Colitis: L-Sided Abdominal Pain - No acute abdomen findings and CT without significant findings suggesting necrotic bowel; CT was without contrast and question of possible diverticulitis that may not have been seen or is in early phases - Nothing by mouth except sips and chips and medications - Cipro 400 mg IV BID and Flagyl 500 mg IV Q8H - Morphine 1-2 mg Q4H PRN and Roxicodone 5 mg Q6H Elevated Lactic Acid - Early Infection/Ischemic Colitis vs Dehydration - Initial lactic 3.5 with repeat showing resolution - NSS at 80 mL/hour Constipation: - Senokot 2 tablets HS and Amitiza (patient may use own medication) - We will also schedule daily MiraLAX and when necessary Dulcolax AAA and CAD/HTN and S/P Pacer: - CT showing mild dilation and suggestive of chronic short segment dissections; these dissections were not mentioned on previous CT in March - follows with Dr. Downs in [place] as her respiratory director - D-dimer obtained which is mildly elevated at 900 but would expect significant higher reading if this was acute dissections - Suspect pain may be chronic due to this known AAA - reports she was previously evaluated by pain management but is not currently established with them - daughter states PCP does not write for pain medications - has Ultram but states typically does not work - Discussed the findings with the patient and daughter and they both agree they would not want surgical intervention for this aneurysm and will not likely need appropriate pain management for this - Aspirin 81 mg daily and Plavix 75 mg daily - Norvasc 10 mg daily and Lopressor 50 mg BID; hold HCTZ with hydration - Pravastatin 40 mg daily COPD without Exacerbation: - Patient reports home O2 and she uses this normally at night - currently appropriate oxygenation without supplemental O2 - Albuterol nebulizers PRN Anxiety/Depression/Dementia: Follows with Psychiatry - Aricept 5 mg daily and Namenda 5 mg daily - Xanax 0.5 mg TID and Remeron 15 mg HS DVT Prophylaxis: Heparin 5000 units SC Q12H Code Status: DO NOT RESUSCITATE Disposition: - Monitor on telemetry overnight - if remains stable can move to Med/Surg - Lives with daughter - will obtain PT/OT I personally interviewed and examined the patient. I agree with history of present illness and physical exam mentioned above, I also performed my own history taking and examination. Past medical history and review of system has been obtained by myself I reviewed all pertinent labs and studies Reviewed current medications I discussed and formulated of the assessment and plan mentioned above. Please refer to the Summary mentioned below. Agree With Miss. García's plan General Appearance: not in acute distress Eyes: normal Sclerae, extraocular muscle intact ENT: hearing grossly normal Neck: supple Respiratory/Chest: normal air entry bilateral ,no severe respiratory distress, no accessory muscle use, currently she is comfortable on O2 level that she uses at home Cardiovascular: regular rate, rhythm, no murmur Abdomen: non tender, soft, no masses Extremities: no edema Neurologic/Psychiatric: Awake alert oriented times place and person moves all extremities sensation intact cranial nerves II-12 appear to be intact Skin: normal color, warm/dry, no rash 77 years old female presented to the ED with acute and chronic abdominal pain CT scan abdomen showed her AAA and mentioned chronic dissection, hence d dimer was requested and came back 900 likely from dehydration and colitis, usually dissection has very high d dimer, current d dimer will not justify any aggressive intervention for her AAA, family aggreable to possible stent but no surgery. no stigmata for PE, no tachycardia no hypoxia, currently at her base line O2 supplement Assessment Gastro enteritis, colitis / unlikely ischemic colitis abdomina pain Constipation elevated lactic acid, quickly normalised w IVF plan: continune supportive care Cipro/Flagyl Currently nothing by mouth for bowel rest Stool softener Radha Michael MD, [facility] Level of Care Telemetry Advanced Directives Existing Living Will: No Existing Power of Peritoneal Dialysis Registered Nurse: No Resuscitation Status DO NOT RESUSCITATE VTE Prophylaxis VTE Risk Assessment Done? Y/N: Yes Risk Level: Moderate Given or contraindicated: Unfractionated heparin SQ
[2017-10-24 16:30] VITALS: BP 158/85; PULSE 65; TEMP 36.5; O2SAT 97
[2017-10-24] MEDS: SODIUM CHLORIDE 0.9% 1000ML 1,000 ML IV SCH (17:27)
[2017-10-24] MEDS: OXYCODONE HCL IR 5 MG TAB (IMMEDIATE RELEASE) PO SCH ×2 (17:31→21:41)
[2017-10-24 17:51] LABS: PTT PATIENT 28.2 SECONDS (21.0-31.0)
[2017-10-24] MEDS: METRONIDAZOLE / NSS 500 MG in PREMIXED NSS 100 ML IV SCH (18:19)
[2017-10-24] MEDS: DOCUSATE SODIUM/SENNA 50/8.6MG TAB PO SCH (20:30)
[2017-10-24] MEDS: DONEPEZIL HCL 5 MG TAB PO SCH (20:30)
[2017-10-24] MEDS: MIRTAZAPINE SOLTAB 15 MG PO SCH (20:30)
[2017-10-24] MEDS: METOPROLOL TARTRATE 50 MG TAB PO SCH (20:30)
[2017-10-24] MEDS: HEPARIN SOD 5000 UNIT/0.5 ML CARP SQ SCH (20:31)
[2017-10-24] MEDS: ALPRAZOLAM 0.5 MG TAB PO SCH (20:33)
[2017-10-25] VITALS (11 sets, daily range): BP systolic 99–145; BP diastolic 59–76; PULSE 58–69; TEMP 36.4–36.7; O2SAT 95–100
[2017-10-25] MEDS: METRONIDAZOLE / NSS 500 MG in PREMIXED NSS 100 ML IV SCH ×3 (01:33→17:54)
[2017-10-25] MEDS: CIPROFLOXACIN / D5W 400 MG in PREMIXED IN D5W 200 ML IV SCH ×2 (02:44→14:09)
[2017-10-25] MEDS: OXYCODONE HCL IR 5 MG TAB (IMMEDIATE RELEASE) PO SCH ×4 (02:45→21:31)
[2017-10-25] MEDS: SODIUM CHLORIDE 0.9% 1000ML 1,000 ML IV SCH (04:32)
[2017-10-25 06:14] LABS: HEMATOCRIT 38.1 % (37-47); HEMOGLOBIN 12.3 g/dL (12.0-16.0); MEAN CELL VOLUME 87.2 fL (80-100); MEAN CORPUSCULAR HEMOGLOBIN 28.1 pg (25-34); MEAN CORPUSCULAR HGB CONC 32.3 g/dl (32-36); MEAN PLATELET VOLUME 9.3 fL (7.4-10.4); PLATELET COUNT 270 K/uL (130-400); RED CELL DISTRIBUTION WIDTH CV 12.7 % (11.5-14.5); WHITE BLOOD COUNT 9.84 K/uL (4.8-10.8)
[2017-10-25 06:53] LABS: CALCIUM 8.1 mg/dl (8.5-10.1); CREATININE 0.76 mg/dl (0.60-1.20); POTASSIUM 3.1 mmol/L (3.5-5.1)
[2017-10-25] MEDS: MoRPHine SULFATE 2 MG/ML CARP IV PRN (07:22)
[2017-10-25] MEDS: PRAVASTATIN SOD 40 MG TAB PO SCH (08:26)
[2017-10-25] MEDS: CLOPIDOGREL BISULFATE 75 MG TAB PO SCH (08:26)
[2017-10-25] MEDS: AMLODIPINE BESYLATE 5 MG TAB PO SCH (08:26)
[2017-10-25] MEDS: CYANOCOBALAMIN 500 MCG TAB (VIT B-12) PO SCH (08:26)
[2017-10-25] MEDS: ASPIRIN 81 MG CHEW PO SCH (08:26)
[2017-10-25] MEDS: METOPROLOL TARTRATE 50 MG TAB PO SCH ×2 (08:26→21:30)
[2017-10-25] MEDS: ALPRAZOLAM 0.5 MG TAB PO SCH ×3 (08:26→21:31)
[2017-10-25] MEDS: MEMANTINE 5 MG TAB PO SCH (08:26)
[2017-10-25] MEDS: POLYETHYLENE (MIRALAX) 17 GM PACK PO SCH (08:27)
[2017-10-25] MEDS: HEPARIN SOD 5000 UNIT/0.5 ML CARP SQ SCH ×2 (09:02→21:32)
[2017-10-25] MEDS ORDERED: POTASSIUM CHLORIDE 10 MEQ TABCR PO ONE (12:30)
[2017-10-25] MEDS ORDERED: OPTIRAY 320 IV PRN ×2 (13:00→18:45)
[2017-10-25] MEDS ORDERED: SODIUM CHLOR 0.45% + 20MEQ KCL 1,000 ML IV SCH (13:00)
--- NOTE | 2017-10-25 13:09 | Hospitalist Progress Note ---
Hospitalist Progress Note Date of Service Oct 25, 2017. Subjective Pt evaluation today including: conversation w/ patient, conversation w/ family (daughter), conversation w/ forestry consultant (Radiology) Pt here with acute on chronic left sided abd pain. Reports currently she is feeling improved, but hasn't eaten today. Pain is always worse after eating, and also worse with lying flat. Has been coming on daily for 2 years, much worsening in intensity the last few weeks which brought her in today. She had what sounds like angioplasty of the coronary arteries a few months ago as well. Had a pacer placed she thinks for a rapid heart beat this summer, but not sure why-says it's working well as per Cardio visit 2 months ago. Tele paced at 60 beats per minute consistently Constitutional: No fever Respiratory: No shortness of breath Cardiovascular: No chest pain Abdomen: + pain, + constipation, No nausea, No vomiting, No diarrhea, No GI bleeding All Other Systems: Reviewed and Negative Objective Vital Signs Date Time Temp Pulse Resp B/P (MAP) Pulse Ox O2 Delivery O2 Flow Rate FiO2 10/25/17 12:00 96 Nasal Cannula 3.0 10/25/17 11:22 36.5 60 16 132/71 (91) 96 Nasal Cannula 3.0 10/25/17 10:04 36.6 65 16 100/68 (79) 100 Nasal Cannula 3.0 10/25/17 08:00 98 Nasal Cannula 3.0 10/25/17 07:12 36.6 69 16 145/64 (91) 98 Nasal Cannula 3.0 10/25/17 04:00 Nasal Cannula 3.0 10/25/17 03:47 36.7 58 20 120/76 (91) 97 Nasal Cannula 2.0 10/25/17 00:16 36.7 61 20 110/72 (85) 97 Nasal Cannula 2.0 10/25/17 00:00 Nasal Cannula 3.0 10/24/17 20:00 Nasal Cannula 3.0 10/24/17 16:30 36.5 65 20 158/85 (109) 97 Room Air 10/24/17 15:49 62 99 10/24/17 15:34 148/78 10/24/17 14:49 62 90 10/24/17 14:20 97 Room Air 10/24/17 14:00 84 16 138/70 97 10/24/17 13:49 70 94 10/24/17 13:13 62 16 143/68 99 10/24/17 13:10 143/68 Physical Exam General Appearance: WD/WN, no apparent distress Eyes: normal inspection, sclerae normal ENT: hearing grossly normal Neck: trachea midline Respiratory/Chest: no respiratory distress, no accessory muscle use, + decreased breath sounds (throughout, some mild exp wheezes diffusely) Cardiovascular: regular rate, rhythm, no edema, no gallop, no murmur Abdomen: normal bowel sounds, soft, + tenderness (in mid abdomen just to the left of midline, without guarding or rebound) Extremities: normal inspection, no pedal edema, no calf tenderness, + pertinent finding (2+ femoral pulses bilat, 1+ DP pulses bilat, majority of toenails with thickened yellow nails, some curling around, with subungual debris , great toes with mild erythema and scabs near nail corners) Neurologic/Psychiatric: alert, normal mood/affect, oriented x 3 Skin: normal color, warm/dry, no rash Laboratory Results Last 24 Hours Test 10/24/17 14:11 10/25/17 05:45 D-Dimer 960 ug/L FEU Lactic Acid Level 1.3 mmol/L White Blood Count 9.84 K/uL Red Blood Count 4.37 M/uL Hemoglobin 12.3 g/dL Hematocrit 38.1 % Mean Corpuscular Volume 87.2 fL Mean Corpuscular Hemoglobin 28.1 pg Mean Corpuscular Hemoglobin Concent 32.3 g/dl RDW Standard Deviation 41.0 fL RDW Coefficient of Variation 12.7 % Platelet Count 270 K/uL Mean Platelet Volume 9.3 fL Sodium Level 139 mmol/L Potassium Level 3.1 mmol/L Chloride Level 104 mmol/L Carbon Dioxide Level 29 mmol/L Anion Gap 6.0 mmol/L Blood Urea Nitrogen 9 mg/dl Creatinine 0.76 mg/dl Est Creatinine Clear Calc Drug Dose 57.1 ml/min Estimated GFR () 86.5 Estimated GFR (Non- 74.6 BUN/Creatinine Ratio 11.7 Random Glucose 93 mg/dl Calcium Level 8.1 mg/dl Magnesium Level 2.0 mg/dl Assessment and Plan Ms. Powell is a 77 y/o female with PMHx of CAD, Suspected COPD, HTN, AAA, S/P Pacer, and Anxiety/Depression/Dementia who presents to the ED c/o L sided abdominal pain x 2 days. Acute on chronic left sided abdominal pain- is a vasculopath, lactate elevated on admission, worse post-prandial and with lying flat-could be mesenteric ischemia. Improved currently since has been NPO. Lactate normalized after IVFs - No acute abdomen findings on admission, CT ABD/PEL WITHOUT CONTRAST without significant findings suggesting necrotic bowel, AAA bigger than previous at 4.4 cm but no obvious leak, with chronic focal dissection--> could be source of pain vs mesenteric artery focal stenoses. No obvious diverticulitis, could be infectious colitis - ok to advance diet to clears now -continue empiric Cipro 400 mg IV BID and Flagyl 500 mg IV Q8H - Morphine 1-2 mg Q4H PRN and Roxicodone 5 mg Q6H -Check CTA Abd./pel now to further evaluate mesenteric arteries -Placed consult to Vascular, but saw Vascular unavailable here at this time--> if abnormal CTA, will need to possibly transfer out to tertiary care center -bowel regimen but this is not likely from constipation Hypokalemia-K+ down to 3.1 today from being NPO likely -replace K+ po and IV -follow PRP Constipation: - Senokot 2 tablets HS and Amitiza (patient may use own medication) - We will also schedule daily MiraLAX and when necessary Dulcolax AAA/CAD/HTN/S/P Pacer for ??rapid heartbeat: No records for review from Cardiology, Dr. Cruz-request those today - D-dimer obtained which is mildly elevated at 900 but would expect significant higher reading if these were acute dissections - Discussed the findings with the patient and daughter and they both agree they would not want OPEN surgical intervention for this aneurysm, but are willing to discuss interventional procedures if possible - Aspirin, Plavix 75 mg daily - continue Norvasc 10 mg daily and Lopressor 50 mg BID; hold HCTZ with hydration - continue Pravastatin 40 mg daily COPD without Exacerbation/Chronic respiratory failure/Former smoker-quit smoking 1 year ago - Patient reports home O2 and she uses this normally at night - currently appropriate oxygenation without supplemental O2 - Albuterol nebulizers PRN Anxiety/Depression/Dementia: Follows with Psychiatry, stable - Aricept 5 mg daily and Namenda 5 mg daily - Xanax 0.5 mg TID and Remeron 15 mg HS DVT Prophylaxis: Heparin 5000 units SC Q12H Code Status: DO NOT RESUSCITATE Disposition: - Monitored on telemetry overnight - remains stable -->can move to Med/Surg - Lives with daughter - will obtain PT/OT
--- NOTE | 2017-10-25 14:08 | DIAGNOSTIC IMAGING REPORT ---
ABD/PELVIS CTA WITH CONTRAST HISTORY: Generalized abdominal pain. TECHNIQUE: Multiaxial CT images of the abdomen and pelvis were performed following the use of intravenous contrast to evaluate the major arterial structures. Maximal intensity projection images were also obtained. COMPARISON STUDY: Abdomen and pelvis CT 10/24/2017. FINDINGS: Pacemaker wires are noted within the heart. Linear densities at the left lung base consistent with subsegmental atelectasis. Emphysema. No pneumoperitoneum. No pneumatosis. No fractures within the visualized osseous structures. Focal area of calcification within the right hepatic lobe. No hepatic or splenic masses. The adrenal glands and pancreas are unremarkable. There are few subcentimeter hypodense lesions within the kidneys which are too small to characterize. The pancreas enhances normally. Mildly distended distal main pancreatic duct measuring 4 mm at the pancreatic head. Normal bladder. The uterus is surgically absent. Multiple surgical clips within the pelvis. Normal caliber common bile duct. No bowel wall thickening or obstruction. Colonic diverticulosis. Stable aneurysmal dilatation of the descending thoracic aorta measuring up to 4.4 cm in diameter. Mild narrowing at the origin of the bilateral renal arteries. Otherwise, the mid to distal renal arteries, celiac artery, superior mesenteric artery, and inferior mesenteric arteries are patent. No significant stenosis within the right iliac arteries. Focal area of 50% stenosis within the proximal to mid left common iliac artery. 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 Otherwise, the left external iliac artery is widely patent. The suprarenal abdominal aorta measures up to 3.1 cm in diameter. Moderate left carotid plaque in the descending thoracic aorta, abdominal aorta, and iliac arteries. No retroperitoneal hematoma. IMPRESSION: 1. Stable aneurysmal dilatation of the visualized descending thoracic aorta and suprarenal abdominal aorta as described above. 2. Stable narrowing of approximately 50% within the left proximal to mid common iliac artery. 3. No bowel wall thickening or obstruction. 4. Mildly distended distal main pancreatic duct measuring up to 4 mm. This also remains unchanged. Electronically signed by: Timoteo Shaffer M.D. 10/25/2017 2:06 PM Dictated Date/Time: 10/25/2017 1:52 PM
--- NOTE | 2017-10-25 16:21 | INTERNAL MEDICINE CONSULTATION ---
DATE OF ADMISSION: 10/24/2017 HISTORY OF PRESENT ILLNESS: A 77-year-old admitted for ulcerative colitis and dehydration. Seen at bedside due to painful left hallux nail. Daughter notes she has tried cutting the nails herself with little relief, severe pain, redness and drainage noted of the left hallux nail for several weeks. No previous medical problems with the feet noted. The patient has been admitted for rule out dehydration, ulcerative colitis versus aortic aneurysm pain. PAST SURGICAL HISTORY: Pacemaker. PAST MEDICAL HISTORY: Osteopenia, CAD, COPD, hypertension, aortic aneurysm, anxiety, depression, and dementia. MEDICATIONS: Per chart. ALLERGIES: No known drug allergies. SOCIAL HISTORY: Previous tobacco use. FAMILY HISTORY: Hypertension and stroke. PHYSICAL EXAMINATION: LOWER EXTREMITY: DP nonpalpable, PT nonpalpable. Absence of digital hair is noted. Moderate amount of swelling noted bilateral lower extremities, pitting +2/6. DERMATOLOGIC: Nails mycotic, dystrophic, yellow discolored with multiple layers across severe incurvation bilateral borders, left hallux, now with dry drainage along the lateral border. No erythema, no active drainage noted. Pain on dorsal pressure of the nail. NEUROLOGIC: Epicritic sensation. Motor and sensory grossly intact. MUSCULOSKELETAL: Collapsing calcaneal valgus foot type noted and pain is noted of the left hallux now. IMPRESSION: 1. Pain, left hallux. 2. Paronychia, bilateral borders, left hallux. 3. Painful onychomycosis. TREATMENT: Partial nail avulsion was performed with 3 abated nail splitter. Curved hemostat was used to resect the bone in proximal and distal fashion bilateral borders. No dressing was applied. There was no bleeding incurred. No anesthetic was applied as patient preferred anesthetic. Remaining nails were debrided with nail clippers 1 through 5 bilaterally. Medical chart and medications reviewed, recommend follow up as needed. Reconsulted if needed. CELESTE
[2017-10-25] MEDS ORDERED: NURSING VERBAL MED ORDER ONE ×2 (19:00→19:15)
[2017-10-25] MEDS ORDERED: SODIUM CHLORIDE 0.9% 250ML 250 ML IV ONE (19:15)
--- NOTE | 2017-10-25 21:23 | DIAGNOSTIC IMAGING REPORT ---
CT ANGIOGRAPHY OF THE CHEST, PULMONARY EMBOLUS PROTOCOL CLINICAL HISTORY: Elevated d-dimer. Left upper abdominal pain. Ischemic colitis. Evaluate for pulmonary embolus. COMPARISON STUDY: Chest radiograph October 24, [address] November 27, 2016. TECHNIQUE: Following IV administration of 86 mL of Optiray-320, helical axial images of the chest were obtained utilizing the pulmonary embolus protocol. Maximal intensity projections and sagittal and coronal reformats were viewed on an independent 3D workstation. IV contrast was administered without complication. A dose lowering technique was utilized adhering to the principles of ALARA. CT DOSE: 262.11 mGy.cm FINDINGS: No pulmonary emboli are identified. There are median sternotomy wires and a dual lead left subclavian pacemaker. There are postoperative findings involving the ascending aorta. Aneurysmal dilatation of the thoracic aorta is unchanged and CTA of November 27, 2016. Descending thoracic aorta is suboptimally opacified on this exam but measures up to 4.5 cm within its mid aspect. No dissection is identified within opacified portions of the thoracic aorta. No pneumothorax or pleural effusion is noted. There is moderate emphysema. No consolidation is identified to suggest pneumonia. Linear and groundglass opacity suggest atelectasis. There are multiple old left-sided rib fractures. Prominent mediastinal lymph nodes are unchanged. IMPRESSION: 1. No pulmonary emboli identified. 2. No acute intrathoracic findings. 3. Stable aneurysmal dilatation of the descending thoracic aorta since CTA of November 27, 2016, measuring 4.5 cm. Thoracic aorta suboptimally opacified on this exam but no evidence for dissection on this study. Electronically signed by: Shahid Camarillo M.D. 10/25/2017 9:21 PM Dictated Date/Time: 10/25/2017 9:10 PM
[2017-10-25] MEDS: DONEPEZIL HCL 5 MG TAB PO SCH (21:30)
[2017-10-25] MEDS: MIRTAZAPINE SOLTAB 15 MG PO SCH (21:31)
[2017-10-25] MEDS: DOCUSATE SODIUM/SENNA 50/8.6MG TAB PO SCH (21:31)
[2017-10-26] VITALS (9 sets, daily range): BP systolic 102–144; BP diastolic 67–77; PULSE 61–72; TEMP 36.2–37; O2SAT 96–98
[2017-10-26] MEDS: D5W AND 1/2NSS 1,000 ML IV SCH ×2 (00:07→13:13)
[2017-10-26] MEDS: METRONIDAZOLE / NSS 500 MG in PREMIXED NSS 100 ML IV SCH ×3 (01:26→18:15)
[2017-10-26] MEDS: CIPROFLOXACIN / D5W 400 MG in PREMIXED IN D5W 200 ML IV SCH ×2 (02:38→14:41)
[2017-10-26] MEDS: OXYCODONE HCL IR 5 MG TAB (IMMEDIATE RELEASE) PO SCH ×5 (03:32→21:30)
[2017-10-26 06:10] LABS: BASO % 0.7 %; BASO ABS # 0.07 K/uL (0-0.2); EOS % 4.2 %; EOS ABS # 0.42 K/uL (0-0.5); HEMATOCRIT 37.6 % (37-47); HEMOGLOBIN 12.3 g/dL (12.0-16.0); IG# 0.04 K/uL (0.00-0.02); LYMPH % 25.7 %; LYMPH ABS # 2.59 K/uL (1.2-3.4); MEAN CELL VOLUME 86.8 fL (80-100); MEAN CORPUSCULAR HEMOGLOBIN 28.4 pg (25-34); MEAN PLATELET VOLUME 9.8 fL (7.4-10.4); MONO % 12.1 %; MONO ABS # 1.22 K/uL (0.11-0.59); NEUT % 56.9 %; NEUT ABS # 5.74 K/uL (1.4-6.5); PLATELET COUNT 253 K/uL (130-400); RED CELL DISTRIBUTION WIDTH CV 13.2 % (11.5-14.5); RED CELL DISTRIBUTION WIDTH SD 42.6 fL (36.4-46.3); WHITE BLOOD COUNT 10.08 K/uL (4.8-10.8)
[2017-10-26 06:13] LABS: MEAN CORPUSCULAR HGB CONC 32.7 g/dl (32-36)
[2017-10-26 06:18] LABS: CALCIUM 7.9 mg/dl (8.5-10.1); CREATININE 0.84 mg/dl (0.60-1.20); POTASSIUM 3.9 mmol/L (3.5-5.1)
[2017-10-26] MEDS: ASPIRIN 81 MG CHEW PO SCH (07:48)
[2017-10-26] MEDS: CYANOCOBALAMIN 500 MCG TAB (VIT B-12) PO SCH (07:48)
[2017-10-26] MEDS: MEMANTINE 5 MG TAB PO SCH (07:48)
[2017-10-26] MEDS: METOPROLOL TARTRATE 50 MG TAB PO SCH ×3 (07:48→20:27)
[2017-10-26] MEDS: CLOPIDOGREL BISULFATE 75 MG TAB PO SCH (07:48)
[2017-10-26] MEDS: POLYETHYLENE (MIRALAX) 17 GM PACK PO SCH (07:48)
[2017-10-26] MEDS: PRAVASTATIN SOD 40 MG TAB PO SCH (07:48)
[2017-10-26] MEDS: AMLODIPINE BESYLATE 5 MG TAB PO SCH (07:48)
[2017-10-26] MEDS: ALPRAZOLAM 0.5 MG TAB PO SCH ×3 (07:49→20:25)
[2017-10-26] MEDS: HEPARIN SOD 5000 UNIT/0.5 ML CARP SQ SCH ×2 (07:49→20:30)
--- NOTE | 2017-10-26 10:15 | GASTROINTESTINAL CONSULTATION ---
DATE OF CONSULTATION: 10/25/2017 DATE OF CONSULTATION: 10/25/2017 Gastroenterology consultation for abdominal pain. HISTORY OF PRESENT ILLNESS: Mrs. Powell is a 77-year-old white female with a history of chronic abdominal pain that has been present for approximately 2 years. Some of this information was gathered from the patient, the medical record and from the patient's daughter. The patient moved from the [facility] approximately 2 years ago. According to the patient's daughter, the patient has had these features of abdominal pain which is corroborated with the patient that occur after a meal regardless of the type of meal and perhaps volume. The patient does not report vomiting necessarily. Despite the 2 years of symptoms the patient has not had any weight loss. Pain can also occur when the patient is lying supine. The pain is mostly on the left side of the abdomen. There is also evidence of vasculopathy with changes throughout the abdominal aorta. The patient does not use any opiates currently, but may have used Ultram. At times the patient does have episodes of constipation and this has been a chronic problem. At some point in the past she was prescribed Amitiza. She has also tried laxative products with intermittent success. During this event there were no reports of melena, bright red blood per rectum, vomiting or nausea, hematemesis, coffee-ground emesis or diarrhea. On admission, the patient's lactate level was slightly elevated at 3.5. However, subsequent labs showed normalization of this value. CT scan will be discussed below. The patient has never had a colonoscopy or upper endoscopy in pursuit of these symptoms. Additionally, on imaging study at [facility], there is a question that the distal part of the pancreas approaching the head region may have a slight prominence to the PD at 4 mm. The gland itself is otherwise atrophic without evidence of chronic pancreatitis changes and there is no history of acute or chronic pancreatitis according to the patient or her daughter. PAST MEDICAL HISTORY: Includes AAA, hypertension, coronary artery disease, COPD, pacer placement, anxiety, depression and dementia. FAMILY HISTORY: Significant for stroke and hypertension. SOCIAL HISTORY: The patient denies tobacco or alcohol use. , lives with her family in the [facility]. ALLERGIES: She has no known drug allergies. HOME MEDICATIONS: Include Xanax, amlodipine, aspirin, vitamin D3, clopidogrel, B12, donepezil, hydrochlorothiazide, Amitiza, Namenda, Lopressor, Remeron, oxycodone, pravastatin, psyllium, senna, simethicone. REVIEW OF SYSTEMS: Otherwise noncontributory based on 13-point exam except for mentioned above. Most of the patient's symptoms seem to be on the left side of the abdomen, mostly in the lower and mid abdominal region without radiation to the back necessarily. PHYSICAL EXAMINATION: VITAL SIGNS: On admission, the patient was afebrile at 36.9, blood pressure 147/91, 97% on room air, pulse 78, respirations 30. GENERAL: The patient is awake and alert and after some questioning became more oriented to time and place, although initially cannot recall what town she is in or the name of the hospital. HEAD, EYES, EARS, NOSE, AND THROAT: Sclerae are anicteric, conjunctiva moist. Oral mucosa moist. Normocephalic, atraumatic. NECK: Normal range of motion. There is no cervical or supraclavicular adenopathy. I do not appreciate thyromegaly. HEART: Normal S1, S2. LUNGS: Overall, clear to auscultation without rales, rhonchi or wheezes. ABDOMEN: Soft, minimally tender in the left side of the abdomen without rebound or guarding at this time. There are no abdominal bruits or masses. There is no evidence to suggest ascites or shifting dullness. The abdomen is otherwise soft. EXTREMITIES: Showed normal range of motion. Skin is dry and intact without rashes. The oral mucosa is moist. Without clubbing, cyanosis. There is perhaps trace edema. RECTAL EXAMINATION: Deferred at this time. LABORATORY STUDIES: On admission, white count 11.7, hemoglobin 14.1, hematocrit 41.5, MCV 85, platelets 332,000. Potassium level 3.3. BUN and creatinine are 10 and 0.8. Lactate was 3.5, although a subsequent lab fell to 1.3. Total bilirubin 0.5, AST 11, ALT 16, alkaline phosphatase 102, total protein 7.8, albumin 4.1, lipase 137. UA shows no evidence of UTI. There is an elevated D-dimer and subsequent protocols to look for dissection found no evidence of dissection of the abdominal aortic region, although chronic stable aneurysms are noted. CT scan showed a normal liver morphology, a mild pancreatic atrophy. There is no evidence of intra or extrahepatic bile duct dilation with a normal gallbladder, adrenals are unremarkable, bladder unremarkable. There is sigmoid diverticulosis with mild stool burden. The appendix is not visualized, although there is no obvious inflammation in the colon. The ileocecal valve may have some prominence to it. There is no abnormal lymphadenopathy. There is extensive atherosclerosis in the abdominal aorta with aorta 4.4 cm in the transverse dimension at the aortic hiatus. There are some inward displacement of the intimal layer with calcifications along the aortoiliac course consistent with chronic short segment dissection. Abdominal wall without defects. The patient also had a CT angiogram which did not show any evidence of obvious acute dissection. The patient's followup laboratory studies show a slight trend downward of her hemoglobin to 12.3 from 14.1 on admission, white count is normal at 10.0, platelets 253. Serum chemistry shows potassium was low this morning at 3.1. BUN and creatinine are stable. IMPRESSION AND PLAN: The patient with chronic abdominal pain of uncertain etiology. This may represent a vascular process, although mucosal sources may be a culprit as well. There is a consistent pattern of pain with eating after several minutes regardless of the type of food. Whether this reflects a pattern of mesenteric ischemia is not known, although despite this chronic pain there has been no weight loss and this would speak against it. Additionally, the patient has normal albumin which would suggest that she is nutritionally satisfactory. There has been no reports of rectal bleeding, melena or hematemesis. I spoke with the patient and the daughter by phone at length this evening and the patient has been quite adamant about not undergoing colonoscopy despite her lack of prior evaluation. She is agreeable to an upper endoscopy and we will plan for this tomorrow, Tuesday in the afternoon, to exclude any mucosal defects. Depending on the findings, we will readdress the possibility of colonoscopy with her. The other question is whether or not D-dimer may be an alternative source and exclusion of pulmonary embolism may be worthwhile, although the patient has not had any obvious respiratory effects if present. Optimizing a bowel regimen may ultimately be helpful for the patient. Further recommendations to follow. All questions answered for the patient and her daughter. These recommendations were discussed with Dr. Regan. It is unclear if any of the patient's symptoms are related to the vascular process in the abdominal aorta but an obvious mesenteric ischemia is not appreciated at this time. Thank you for allowing me to participate in this patient's care. Sincerely.
[2017-10-26] MEDS: MoRPHine SULFATE 2 MG/ML CARP IV PRN (10:24)
--- NOTE | 2017-10-26 14:07 | History & Physical Bridge Note ---
H&P Re-Evaluation Bridge Note: I have examined the patient, reviewed the History & Physical and in the interval since the performance of the History & Physical I have noted the following changes of clinical significance: No changes noted
[2017-10-26] MEDS ORDERED: PROPOFOL IV EMULSION 10 MG/ML 20 ML VIAL IV ONE ×2 (15:42→15:51)
[2017-10-26] MEDS ORDERED: LIDOCAINE HCL 2% 2 ML VIAL (20MG/ML) ONE ×2 (15:42→15:51)
--- NOTE | 2017-10-26 16:18 | GI REPORT ---
Procedure Date: 10/26/2017 3:57 PM Procedure: Upper GI endoscopy Indications: Epigastric abdominal pain, Generalized abdominal pain Medicines: Propofol per Anesthesia Complications: No immediate complications. Estimated blood loss: Minimal. Estimated Blood Loss: Estimated blood loss was minimal. Procedure: Pre-Anesthesia Assessment: - Prior to the procedure, a History and Physical was performed, and patient medications and allergies were reviewed. The patient's tolerance of previous anesthesia was also reviewed. The risks and benefits of the procedure and the sedation options and risks were discussed with the patient. All questions were answered, and informed consent was obtained. Prior Anticoagulants: The patient has taken no previous anticoagulant or antiplatelet agents. ASA Grade Assessment: III - A patient with severe systemic disease. After reviewing the risks and benefits, the patient was deemed in satisfactory condition to undergo the procedure. After obtaining informed consent, the endoscope was passed under direct vision. Throughout the procedure, the patient's blood pressure, pulse, and oxygen saturations were monitored continuously. The On-site loaner was introduced through the mouth, and advanced to the second part of duodenum. The upper GI endoscopy was accomplished without difficulty. The patient tolerated the procedure well. Findings: The upper third of the esophagus was normal. LA Grade B (one or more mucosal breaks greater than 5 mm, not extending between the tops of two mucosal folds) esophagitis with no bleeding was found 33 to 38 cm from the incisors. Biopsies were taken with a cold forceps for histology. Estimated blood loss was minimal. Verification of patient identification for the specimen was done by the physician and breed to wean production technician using the patient's name and medical record number. A single 6 mm sessile polyp with no bleeding and no stigmata of recent bleeding was found on the lesser curvature of the stomach. This was biopsied with a cold forceps for histology. Verification of patient identification for the specimen was done by the physician and breed to wean production technician using the patient's name and medical record number. Patchy mild inflammation characterized by congestion (edema) and erythema was found in the gastric body and in the gastric antrum. Biopsies were taken with a cold forceps for histology. Verification of patient identification for the specimen was done by the physician and breed to wean production technician using the patient's name and medical record number. The examined duodenum was normal. The cardia and gastric fundus were normal on retroflexion. Retained gastric contents are not identified on this exam. Impression: - Normal upper third of esophagus. - LA Grade B reflux and candidiasis esophagitis. Biopsied. - A single gastric polyp. Biopsied. - Gastritis. Biopsied. - Normal examined duodenum. Recommendation: - Return patient to hospital [facility] for ongoing care. - Clear liquid diet. - Continue present medications. - Observe patient's clinical course. - Await pathology results. - Pt does not wish to undergo colonoscopy. Risks of avoiding procedure d/w patient including delayed/missed diagnosis and necessary treatment options. Pt voiced understanding. MD Sergio Olguin MD 10/26/2017 4:17:24 PM This report has been signed electronically. Note Initiated On: 10/26/2017 3:57 PM I attest to the content of the Intraoperative Record and orders documented therein, exceptions below
[2017-10-26] MEDS ORDERED: EpHEDrine SULFATE 50MG/5ML SYR ONE (16:21)
--- NOTE | 2017-10-26 16:29 | Anesthesiology Progress Note ---
Anesthesia Post Op Note Date & Time Oct 26, 2017 at 16:28 Vital Signs Pain Intensity: 0 Vital Signs Past 12 Hours Date Time Temp Pulse Resp B/P (MAP) Pulse Ox O2 Delivery O2 Flow Rate FiO2 10/26/17 16:17 75 12 120/69 (86) 96 Nasal Cannula 2 10/26/17 15:39 144/95 (111) 10/26/17 15:35 36.6 76 20 163/105 (124) 97 Nasal Cannula 2 10/26/17 14:37 36.2 62 16 127/74 (91) 98 Nasal Cannula 3.0 10/26/17 11:49 Nasal Cannula 3.0 10/26/17 11:44 36.9 68 16 117/69 (85) 96 Nasal Cannula 3.0 10/26/17 07:53 37.0 61 16 123/70 (87) 96 Nasal Cannula 3.0 10/26/17 07:30 Nasal Cannula 3.0 10/26/17 04:39 36.7 61 17 109/70 (83) 97 Nasal Cannula 3.0 Notes Mental Status: alert / awake / arousable, participated in evaluation Pt Amnestic to Procedure: Yes Nausea / Vomiting: adequately controlled Pain: adequately controlled Airway Patency, RR, SpO2: stable & adequate BP & HR: stable & adequate Hydration State: stable & adequate Anesthetic Complications: no major complications apparent
[2017-10-26] MEDS: MIRTAZAPINE SOLTAB 15 MG PO SCH (20:25)
[2017-10-26] MEDS: DONEPEZIL HCL 5 MG TAB PO SCH (20:26)
[2017-10-26] MEDS: DOCUSATE SODIUM/SENNA 50/8.6MG TAB PO SCH (20:26)
--- NOTE | 2017-10-26 21:23 | Hospitalist Progress Note ---
Hospitalist Progress Note Date of Service Oct 26, 2017. Subjective Pt evaluation today including: conversation w/ patient, conversation w/ family (daughter on the phone), conversation w/ media consultant outside sales (gastroenterology) Patient was nothing by mouth this morning for EGD. She reported no current abdominal pain, but did have some after eating last night. Received records from her accounts receivable specialist and reviewed them today. I also discussed her case with the anesthesiologist prior to her EGD. All Other Systems: Reviewed and Negative Objective Vital Signs Date Time Temp Pulse Resp B/P (MAP) Pulse Ox O2 Delivery O2 Flow Rate FiO2 10/26/17 20:25 70 138/77 (97) 10/26/17 20:11 98 Nasal Cannula 3.0 10/26/17 19:38 36.4 70 20 102/67 (79) 98 Nasal Cannula 3.0 10/26/17 17:00 72 18 144/76 (98) 98 Nasal Cannula 2.0 10/26/17 16:47 74 16 165/85 (111) 97 Nasal Cannula 2 10/26/17 16:32 75 16 151/72 (98) 96 Nasal Cannula 2 10/26/17 16:17 75 12 120/69 (86) 96 Nasal Cannula 2 10/26/17 16:00 97 Nasal Cannula 3.0 10/26/17 15:39 144/95 (111) 10/26/17 15:35 36.6 76 20 163/105 (124) 97 Nasal Cannula 2 10/26/17 14:37 36.2 62 16 127/74 (91) 98 Nasal Cannula 3.0 10/26/17 11:49 Nasal Cannula 3.0 10/26/17 11:44 36.9 68 16 117/69 (85) 96 Nasal Cannula 3.0 10/26/17 07:53 37.0 61 16 123/70 (87) 96 Nasal Cannula 3.0 10/26/17 07:30 Nasal Cannula 3.0 10/26/17 04:39 36.7 61 17 109/70 (83) 97 Nasal Cannula 3.0 10/26/17 02:53 Nasal Cannula 3.0 10/25/17 23:59 36.5 60 17 99/59 (72) 95 Nasal Cannula 3.0 10/25/17 23:00 Nasal Cannula 3.0 Physical Exam General Appearance: WD/WN, no apparent distress Eyes: normal inspection, sclerae normal ENT: hearing grossly normal Neck: trachea midline Respiratory/Chest: lungs clear, normal breath sounds, no respiratory distress, no accessory muscle use Cardiovascular: regular rate, rhythm, no edema, no gallop, no murmur Abdomen: normal bowel sounds, soft, + tenderness (minimal in the left mid abdomen without guarding or rebound tenderness) Extremities: normal inspection, no pedal edema, no calf tenderness Neurologic/Psychiatric: alert, normal mood/affect Skin: normal color, warm/dry, no rash Laboratory Results Last 24 Hours Test 10/26/17 05:26 White Blood Count 10.08 K/uL Red Blood Count 4.33 M/uL Hemoglobin 12.3 g/dL Hematocrit 37.6 % Mean Corpuscular Volume 86.8 fL Mean Corpuscular Hemoglobin 28.4 pg Mean Corpuscular Hemoglobin Concent 32.7 g/dl Platelet Count 253 K/uL Mean Platelet Volume 9.8 fL Neutrophils (%) (Auto) 56.9 % Lymphocytes (%) (Auto) 25.7 % Monocytes (%) (Auto) 12.1 % Eosinophils (%) (Auto) 4.2 % Basophils (%) (Auto) 0.7 % Neutrophils # (Auto) 5.74 K/uL Lymphocytes # (Auto) 2.59 K/uL Monocytes # (Auto) 1.22 K/uL Eosinophils # (Auto) 0.42 K/uL Basophils # (Auto) 0.07 K/uL RDW Standard Deviation 42.6 fL RDW Coefficient of Variation 13.2 % Immature Granulocyte % (Auto) 0.4 % Immature Granulocyte # (Auto) 0.04 K/uL Sodium Level 138 mmol/L Potassium Level 3.9 mmol/L Chloride Level 107 mmol/L Carbon Dioxide Level 24 mmol/L Anion Gap 7.0 mmol/L Blood Urea Nitrogen 6 mg/dl Creatinine 0.84 mg/dl Est Creatinine Clear Calc Drug Dose 51.7 ml/min Estimated GFR () 76.6 Estimated GFR (Non- 66.1 BUN/Creatinine Ratio 6.7 Random Glucose 103 mg/dl Calcium Level 7.9 mg/dl Magnesium Level 1.9 mg/dl Assessment and Plan Ms. Powell is a 77 y/o female with PMHx of CAD s/p CABG and TORIN to RCA in 2016, pacemaker in situ for high degree heart block, Suspected COPD, HTN, AAA, descending TAA, and Anxiety/Depression/Dementia who presents to the ED c/o L sided acute on chronic abdominal pain progressively worsening over the previous 2 days Acute on chronic left sided abdominal pain- is a vasculopath, lactate elevated on admission, worse post-prandial and with lying flat-could be mesenteric ischemia but CT angiogram of the abdomen and pelvis did not show any significant stenoses of the mesenteric arteries. Lactate normalized after IVFs CT ABD/PEL WITHOUT CONTRAST without significant findings suggesting necrotic bowel, AAA bigger than previous at 4.4 cm but no obvious leak, with chronic focal dissection. No obvious diverticulitis, could be infectious colitis versus ischemic colitis EGD with esophagitis and gastritis, with 6 mm gastric polyp that was biopsied -Patient continues to adamantly decline colonoscopy to complete her evaluation -Appreciate gastroenterology input -We'll await biopsies for H. pylori and esophageal candidiasis and treat if positive -Continue empiric Cipro 400 mg IV BID and Flagyl 500 mg IV [id number] finish out by mouth course on discharge for total 7 days - Continue Morphine 1-2 mg Q4H PRN and Roxicodone 5 mg Q6H -bowel regimen but this is not likely from constipation Hypokalemia-K+ down to 3.1 -resolved with replacement -replace K+ as needed -follow PRP Constipation: - Senokot 2 tablets HS and Amitiza (patient may use own medication) -Continue daily MiraLAX and when necessary Dulcolax AAA/descending TAA/CAD s/p CABG and TORIN to RCA in 2016/HTN/S/P Pacer for high degree heart block in 2016-CT shows no evidence of acute dissection, AAA is slightly larger than previous at 4.4 cm. TAA is stable at 4.5 cm. -Recommend outpatient vascular surgery follow-up - Discussed the findings with the patient and daughter and they both agree they would not want OPEN surgical intervention for this aneurysm, but are willing to discuss interventional procedures if possible - Continue Aspirin, Plavix 75 mg daily - continue Norvasc 10 mg daily and Lopressor 50 mg BID; holding HCTZ due to hypokalemia and dehydration on admission - continue Pravastatin 40 mg daily -Follows routinely with cardiology and is due for pacemaker interrogation in October 2017 PAD-CT angiogram of the abdomen/pelvis showed 50% stenosis within the left proximal to mid common iliac artery. COPD without Exacerbation/Chronic respiratory failure/Former smoker-quit smoking 1 year ago. D-dimer was elevated on admission. CT angiogram of the chest is negative for PE. - Patient reports home O2 and she uses this normally at night - currently appropriate oxygenation without supplemental O2 - Albuterol nebulizers PRN Anxiety/Depression/Dementia: Follows with Psychiatry, stable - Aricept 5 mg daily and Namenda 5 mg daily - Xanax 0.5 mg TID and Remeron 15 mg HS DVT Prophylaxis: Heparin 5000 units SC Q12H Code Status: DO NOT RESUSCITATE Disposition: - Lives with daughter-PT recommends returning home with daughter when medically stable -Discharged home in 1-2 days if abdominal pain improved
[2017-10-27] VITALS (13 sets, daily range): BP systolic 94–151; BP diastolic 57–83; PULSE 57–98; TEMP 36.6–37.1; O2SAT 96–99
[2017-10-27] MEDS: D5W AND 1/2NSS 1,000 ML IV SCH ×2 (02:00→17:39)
[2017-10-27] MEDS: METRONIDAZOLE / NSS 500 MG in PREMIXED NSS 100 ML IV SCH ×3 (02:00→18:01)
[2017-10-27] MEDS: CIPROFLOXACIN / D5W 400 MG in PREMIXED IN D5W 200 ML IV SCH ×2 (04:23→15:43)
[2017-10-27] MEDS: OXYCODONE HCL IR 5 MG TAB (IMMEDIATE RELEASE) PO SCH ×4 (04:24→20:29)
[2017-10-27 07:41] LABS: HEMATOCRIT 36.8 % (37-47); HEMOGLOBIN 12.1 g/dL (12.0-16.0); MEAN CELL VOLUME 86.4 fL (80-100); MEAN CORPUSCULAR HEMOGLOBIN 28.4 pg (25-34); MEAN CORPUSCULAR HGB CONC 32.9 g/dl (32-36); MEAN PLATELET VOLUME 9.4 fL (7.4-10.4); PLATELET COUNT 241 K/uL (130-400); RED CELL DISTRIBUTION WIDTH CV 13.4 % (11.5-14.5); RED CELL DISTRIBUTION WIDTH SD 42.4 fL (36.4-46.3)
[2017-10-27 08:01] LABS: CALCIUM 8.2 mg/dl (8.5-10.1); CREATININE 0.71 mg/dl (0.60-1.20); POTASSIUM 3.5 mmol/L (3.5-5.1)
[2017-10-27] MEDS: MEMANTINE 5 MG TAB PO SCH (09:00)
[2017-10-27] MEDS ORDERED: PANTOprazole SOD 40 MG TAB PO SCH (09:00)
[2017-10-27] MEDS: METOPROLOL TARTRATE 50 MG TAB PO SCH ×2 (09:00→20:21)
[2017-10-27] MEDS: CYANOCOBALAMIN 500 MCG TAB (VIT B-12) PO SCH (09:00)
[2017-10-27] MEDS: AMLODIPINE BESYLATE 5 MG TAB PO SCH (09:00)
[2017-10-27] MEDS: CLOPIDOGREL BISULFATE 75 MG TAB PO SCH (09:00)
[2017-10-27] MEDS: PRAVASTATIN SOD 40 MG TAB PO SCH (09:00)
[2017-10-27] MEDS: POLYETHYLENE (MIRALAX) 17 GM PACK PO SCH (09:01)
[2017-10-27] MEDS: ASPIRIN 81 MG CHEW PO SCH (09:09)
[2017-10-27] MEDS: ALPRAZOLAM 0.5 MG TAB PO SCH ×3 (09:09→20:21)
[2017-10-27] MEDS: HEPARIN SOD 5000 UNIT/0.5 ML CARP SQ SCH ×2 (09:10→20:27)
--- NOTE | 2017-10-27 18:27 | Hospitalist Progress Note ---
Hospitalist Progress Note Date of Service Oct 27, 2017. Subjective Pt evaluation today including: conversation w/ patient Pt states she feels very good, no abd pain at all. SHe did take oxycodone a few hours ago, but this is her usual home dose she takes. She has been eating regular food all day and denies any pain. No CP or SOB, no other concerns. No BM in 3 days All Other Systems: Reviewed and Negative Objective Vital Signs Date Time Temp Pulse Resp B/P (MAP) Pulse Ox O2 Delivery O2 Flow Rate FiO2 10/27/17 16:00 99 Nasal Cannula 2.0 10/27/17 15:01 36.9 62 16 98/57 (71) 99 Room Air 10/27/17 15:00 62 99 10/27/17 12:01 99 Room Air 10/27/17 11:39 37.0 57 18 118/66 (83) 98 10/27/17 08:09 36.8 68 16 144/78 (100) 99 Nasal Cannula 3.0 10/27/17 08:00 99 Room Air 10/27/17 04:00 36.6 63 16 130/81 (97) 99 Room Air 10/27/17 04:00 Nasal Cannula 2.0 10/27/17 00:16 37.0 61 18 151/74 (99) 98 Room Air 98 10/27/17 00:00 Nasal Cannula 2.0 10/26/17 20:25 70 138/77 (97) 10/26/17 20:11 98 Nasal Cannula 3.0 10/26/17 19:38 36.4 70 20 102/67 (79) 98 Nasal Cannula 3.0 Physical Exam General Appearance: WD/WN, no apparent distress Eyes: normal inspection, sclerae normal ENT: hearing grossly normal, + pertinent finding (edentulous) Neck: trachea midline Respiratory/Chest: lungs clear, normal breath sounds, no respiratory distress, no accessory muscle use Cardiovascular: regular rate, rhythm, no edema, no gallop, no murmur Abdomen: normal bowel sounds, non tender, soft, no organomegaly Extremities: normal inspection, no pedal edema, no calf tenderness Neurologic/Psychiatric: alert, normal mood/affect Skin: normal color, warm/dry, no rash Laboratory Results Last 24 Hours Test 10/27/17 07:22 White Blood Count 8.30 K/uL Red Blood Count 4.26 M/uL Hemoglobin 12.1 g/dL Hematocrit 36.8 % Mean Corpuscular Volume 86.4 fL Mean Corpuscular Hemoglobin 28.4 pg Mean Corpuscular Hemoglobin Concent 32.9 g/dl RDW Standard Deviation 42.4 fL RDW Coefficient of Variation 13.4 % Platelet Count 241 K/uL Mean Platelet Volume 9.4 fL Sodium Level 142 mmol/L Potassium Level 3.5 mmol/L Chloride Level 109 mmol/L Carbon Dioxide Level 27 mmol/L Anion Gap 6.0 mmol/L Blood Urea Nitrogen 4 mg/dl Creatinine 0.71 mg/dl Est Creatinine Clear Calc Drug Dose 61.4 ml/min Estimated GFR () 93.9 Estimated GFR (Non- 81.0 BUN/Creatinine Ratio 5.0 Random Glucose 104 mg/dl Calcium Level 8.2 mg/dl Magnesium Level 1.9 mg/dl Assessment and Plan Ms. Powell is a 77 y/o female with PMHx of CAD s/p CABG and TORIN to RCA in 2016, pacemaker in situ for high degree heart block, Suspected COPD, HTN, AAA, descending TAA, and Anxiety/Depression/Dementia who presents to the ED c/o L sided acute on chronic abdominal pain progressively worsening over the previous 2 days Acute on chronic left sided abdominal pain- is a vasculopath, lactate elevated on admission, worse post-prandial and with lying flat-could be mesenteric ischemia but CT angiogram of the abdomen and pelvis did not show any significant stenoses of the mesenteric arteries. Lactate normalized after IVFs CT ABD/PEL WITHOUT CONTRAST without significant findings suggesting necrotic bowel, AAA bigger than previous at 4.4 cm but no obvious leak, with chronic focal dissection. No obvious diverticulitis, initially thought to be infectious colitis versus ischemic colitis EGD with esophagitis and gastritis, with 6 mm gastric polyp that was biopsied--- > all pathology negative for dysplasia, esophagus consistent with ulcer, and negative for H. pylori or fungal organisms Much improved on Protonix -Patient declined colonoscopy to complete her evaluation, but is improved on antibiotics and on Protonix. Pain could be from gastritis and esophagitis -Appreciate gastroenterology input -increase PPI to bid and continue for 4 weeks -Continue empiric Cipro and Flagyl but switch to po-will finish out by mouth course on discharge for total 7 days - dc Morphine, but continue home dose of Roxicodone 5 mg Q6H -continue bowel regimen but this is not likely from constipation -dilated pancreatic duct on CT likely secondary to chronic opioid use Hypokalemia-K+ down to 3.1 -resolved with replacement -replace K+ as needed -follow PRP Constipation: - Senokot 2 tablets HS and Amitiza (patient may use own medication) -Continue daily MiraLAX and when necessary Dulcolax AAA/descending TAA/CAD s/p CABG and TORIN to RCA in 2016/HTN/S/P Pacer for high degree heart block in 2016-CT shows no evidence of acute dissection, AAA is slightly larger than previous at 4.4 cm. TAA is stable at 4.5 cm. -Recommend outpatient vascular surgery follow-up - Discussed the findings with the patient and daughter and they both agree they would not want OPEN surgical intervention for this aneurysm, but are willing to discuss interventional procedures if possible - Continue Aspirin, Plavix 75 mg daily - continue Norvasc 10 mg daily and Lopressor 50 mg BID; holding HCTZ due to hypokalemia and dehydration on admission - continue Pravastatin 40 mg daily -Follows routinely with cardiology and is due for pacemaker interrogation in October 2017 PAD-CT angiogram of the abdomen/pelvis showed 50% stenosis within the left proximal to mid common iliac artery. COPD without Exacerbation/Chronic respiratory failure/Former smoker-quit smoking 1 year ago. D-dimer was elevated on admission. CT angiogram of the chest is negative for PE. - Patient reports home O2 and she uses this normally at night - currently appropriate oxygenation without supplemental O2 - Albuterol nebulizers PRN Anxiety/Depression/Dementia: Follows with Psychiatry, stable - Aricept 5 mg daily and Namenda 5 mg daily - Xanax 0.5 mg TID and Remeron 15 mg HS DVT Prophylaxis: Heparin 5000 units SC Q12H Code Status: DO NOT RESUSCITATE Disposition: - Lives with daughter-PT recommends returning home with daughter when medically stable -Discharge to home in 1 day
--- NOTE | 2017-10-27 19:55 | GASTROENTEROLOGY PROGRESS NOTE ---
DATE: 10/27/2017 BRIEF GASTROINTESTINAL NOTE SUBJECTIVE: The patient underwent upper endoscopy yesterday which revealed esophagitis throughout the mid AND distal esophagus with exudative coating. There was a small polyp in the stomach that was sampled as well as patchy inflammation in the body and antrum. The biopsies from her upper endoscopy yesterday revealed the absence of H. pylori infection, there was mild chronic gastritis noted in the lower portion of the stomach, the lesser curve polyp revealed a benign fundic gland type polyp. There were exudative changes and active esophagitis with ulceration, although a Rohini was not identified. There was no dysplasia or malignancy identified. IMPRESSION AND PLAN: Case discussed with Dr. Regan. The patient has verbalized that she is uninterested in performing a colonoscopy at this time and is actually feeling better with a small dose of opiates for her chronic pain. I agree with b.i.d. PPI dosing and would continue this for 3 months. I would be happy to see the patient in the office over the next few weeks. Plans to decrease the PPI to once daily in 3 months is also reasonable, given the esophagitis identified. The source of the patient's abdominal pain is unclear and it is possible that the patient's discomfort with eating may have been related to this moderate esophagitis. PPI therapy if effective should show resolution of this component of her symptoms. We will sign off at this time and please call if our service can be of further assistance.
[2017-10-27] MEDS: CIPROFLOXACIN 500 MG TAB PO SCH (20:21)
[2017-10-27] MEDS: PANTOprazole SOD 40 MG TAB PO SCH (20:22)
[2017-10-27] MEDS: METRONIDAZOLE 500 MG TAB PO SCH (20:22)
[2017-10-27] MEDS: DONEPEZIL HCL 5 MG TAB PO SCH (20:23)
[2017-10-27] MEDS: DOCUSATE SODIUM/SENNA 50/8.6MG TAB PO SCH (20:23)
[2017-10-27] MEDS: MIRTAZAPINE SOLTAB 15 MG PO SCH (20:24)
[2017-10-28] MEDS: OXYCODONE HCL IR 5 MG TAB (IMMEDIATE RELEASE) PO SCH ×3 (02:55→15:09)
[2017-10-28 05:19] VITALS: BP 125/76; PULSE 74; TEMP 36.6; O2SAT 97
[2017-10-28 07:42] VITALS: BP 127/80; PULSE 75; TEMP 36.4; O2SAT 99
[2017-10-28] MEDS: METRONIDAZOLE 500 MG TAB PO SCH ×2 (07:42→14:07)
[2017-10-28] MEDS: MEMANTINE 5 MG TAB PO SCH (07:42)
[2017-10-28] MEDS: ASPIRIN 81 MG CHEW PO SCH (07:42)
[2017-10-28] MEDS: METOPROLOL TARTRATE 50 MG TAB PO SCH (07:42)
[2017-10-28] MEDS: CIPROFLOXACIN 500 MG TAB PO SCH (07:42)
[2017-10-28] MEDS: POLYETHYLENE (MIRALAX) 17 GM PACK PO SCH (07:42)
[2017-10-28] MEDS: CYANOCOBALAMIN 500 MCG TAB (VIT B-12) PO SCH (07:43)
[2017-10-28] MEDS: ALPRAZOLAM 0.5 MG TAB PO SCH ×2 (07:43→14:07)
[2017-10-28] MEDS: AMLODIPINE BESYLATE 5 MG TAB PO SCH (07:43)
[2017-10-28] MEDS: CLOPIDOGREL BISULFATE 75 MG TAB PO SCH (07:43)
[2017-10-28] MEDS: PANTOprazole SOD 40 MG TAB PO SCH (07:43)
[2017-10-28] MEDS: PRAVASTATIN SOD 40 MG TAB PO SCH (07:43)
[2017-10-28] MEDS: HEPARIN SOD 5000 UNIT/0.5 ML CARP SQ SCH (07:47)
[2017-10-28 11:32] VITALS: BP 108/63; PULSE 66; TEMP 37.1; O2SAT 92
[2017-10-28] MEDS ORDERED: BISACODYL 10 MG SUPP PR STA (15:24)
[2017-10-28] MEDS ORDERED: MTR500 PO (15:39)
[2017-10-28] MEDS ORDERED: PRT40 PO (15:39)
[2017-10-28] MEDS ORDERED: CPR500 PO (15:39)
[2017-10-28 15:43] VITALS: BP 136/81; PULSE 68; TEMP 36.9; O2SAT 98
[2017-10-28 16:00] VITALS: O2SAT 98
--- NOTE | 2017-10-28 17:57 | Discharge Instructions ---
Discharge Instructions Date of Service Oct 28, 2017. Admission Reason for Admission: Abdominal pain Discharge Discharge Diagnosis / Problem: Abdominal pain from esophagitis and gastritis Discharge Goals Goal(s): Improve disease control, Diagnostic testing, Therapeutic intervention Activity Recommendations Activity Limitations: resume your previous activity Exercise/Sports Limitations: gradually increase as tolerated Shower/Bathe: no limitations . Instructions / Follow-Up Instructions / Follow-Up You were found to have inflammation in your esophagus and stomach. It is important that you take pantoprazole 40mg twice a day for at least 2-3 months. Also, you should NOT take voltaren or any other NSAIDs (ibuprofen,Aleve, naproxen) as these can cause inflammation in the stomach. Please follow up with Dr. Gerber at [facility] as scheduled. Follow up with your PCP within 2 weeks as scheduled too. We also made you an appointment to see Dr. Earl, the Vascular Surgeon, about your aortic aneurysms. Current Hospital Diet Patient's current hospital diet: AHA Diet (Heart Healthy) Discharge Diet Recommended Diet: AHA Diet (Heart Healthy) Procedures Procedures Performed: EGD Chest xray CT angiogram chest, abdomen, pelvis CT abdomen/pelvis Pending Studies Studies pending at discharge: no Medical Emergencies . Who to Call and When: Medical Emergencies: If at any time you feel your situation is an emergency, please call 911 immediately. . Non-Emergent Contact Non-Emergency issues call your: Primary Care Provider, Front Desk Coordinator Call Non-Emergent contact if: you have a fever, temperature is above 100.5, your pain is not controlled, your pain is worsening, your pain is unusual for you, your pain is concerning you, you have any medication questions . . "Provider Documentation" section prepared by Karlie Regan. . VTE Core Measure Inpt VTE Proph given/why not?: Unfractionated heparin SQ
[2017-10-28 18:04] VITALS: BP 136/81; PULSE 68; TEMP 36.9; O2SAT 98
[2017-10-28] MEDS ORDERED: OXYCODONE HCL IR 5 MG TAB (IMMEDIATE RELEASE) PO PRN (21:15)
--- NOTE | 2017-11-06 10:41 | Discharge Summary ---
Discharge Summary Date of Service Nov 06, 2017. 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 Anxiety/Depression Dementia 6 mm gastric polyp Hypokalemia Constipation PAD-50% stenosis within the left proximal to mid common iliac artery COPD without Exacerbation Chronic respiratory failure Former smoker Onychomycosis Immunizations: Have You Had Influenza Vaccine: No History of Tetanus Vaccine?: No History of Pneumococcal: No History of Hepatitis B Vaccine: No Procedures: EGD CTA Chest/Abdomen/Pelvis CXR CT Abd/pel Consultations: Gastroenterology Podiatry Medication Reconciliation New Medications: Ciprofloxacin (Ciprofloxacin HCl) 500 Mg Tab 500 MG PO BID for 3 Days, #6 TAB Metronidazole (Metronidazole) 500 Mg Tab 500 MG PO TID for 3 Days, #9 TAB Pantoprazole (Pantoprazole Sodium) 40 Mg Tab 40 MG PO BID for 30 Days, #60 TAB 2 Refills Continued Medications: Acetaminophen (Tylenol) 500 Mg Tab 500 MG PO UD PRN for Pain, TAB Albuterol Sulfate (Proair Respiclick) 108 Mcg/Act Aer 2 PUFFS INH Q4 PRN for SOB/Wheezing Alprazolam (Xanax) 0.5 Mg Tab 0.5 MG PO TID Amlodipine Besylate (Norvasc) 10 Mg Tab 10 MG PO DAILY, TAB Aspirin (Aspirin Chewable) 81 Mg Chew 81 MG PO DAILY Bisacodyl (Bisacodyl) 5 Mg Tab 5 MG PO TID PRN for Constipation, #2 TAB Cholecalciferol (Vitamin D3) 2,000 Unit Tab 2000 INTERUNIT PO DAILY for 90 Days, TAB 3 Refills Clopidogrel (Plavix) 75 Mg Tab 75 MG PO DAILY, TAB Cyanocobalamin (Vitamin B-12) 1,000 Mcg Tab 1000 MCG PO DAILY, TAB Donepezil Hydrochloride (Donepezil Hcl) 5 Mg Tab 5 MG PO HS for 30 Days, TAB 5 Refills Home O2 Therapy (Oxygen) Gas 2 LITERS NA PRN, BTL Hydrochlorothiazide (Hydrochlorothiazide) 12.5 Mg Tab 12.5 MG PO DAILY for 90 Days, #90 TAB 3 Refills Lubiprostone (Amitiza) 8 Mcg Cap 8 MCG PO BID Memantine (Namenda) 5 Mg Tab 5 MG PO DAILY, TAB Metoprolol Tartrate (Lopressor) (Lopressor) 50 Mg Tab 50 MG PO BID, TAB Mirtazapine Soltab (Remeron Soltab) 15 Mg Soltab 15 MG PO HS, TAB Pravastatin Sodium (Pravachol) 40 Mg Tab 40 MG PO DAILY for 90 Days, #90 TAB 3 Refills Psyllium (Metamucil Fiber) 51.7 % [place] 1 DOSE PO DAILY Senna/Docusate Sod (Senokot S) 1 Tab Tab 2 TAB PO HS, TAB Simethicone (Gas-X Extra Strength) 125 Mg Cap 125 MG PO prn Discontinued Medications: Diclofenac (Voltaren) 75 Mg Tabcr 75 MG PO BID PRN for , TAB WITH FOOD Oxycodone Immediate Rel Tab (Roxicodone Ir) 5 Mg Tab 5 MG PO Q6H, TAB Discharge Exam Feeling very well on day of discharge. No abdominal pain at all. Still taking the oxycodone as scheduled but says this is for her chronic leg pain which may be claudication given her PAD. Denies CP or SOB, is camila reg diet, and ready for discharge. Physical Exam General Appearance: WD/WN, no apparent distress Eyes: normal inspection, sclerae normal ENT: hearing grossly normal, + pertinent finding (edentulous) Neck: trachea midline Respiratory/Chest: lungs clear, normal breath sounds, no respiratory distress, no accessory muscle use Cardiovascular: regular rate, rhythm, no edema, no gallop, no murmur Abdomen: normal bowel sounds, non tender, soft, no organomegaly Extremities: normal inspection, no pedal edema, no calf tenderness Neurologic/Psychiatric: alert, normal mood/affect Skin: normal color, warm/dry, no rash Review of Systems: Constitutional: No fever, No chills Eyes: No problem reported ENT: No problem reported Respiratory: No problem reported Cardiovascular: No problem reported Abdomen: No problem reported Musculoskeletal: No problem reported Genitourinary - Female: No problem reported Neurologic: + memory loss Psychiatric: No problem reported Endocrine: No problem reported Hematologic / Lymphatic: No problem reported Integumentary: No problem reported Hospital Course Ms. Powell is a 77 y/o female with PMHx of CAD s/p CABG and TORIN to RCA in 2016, pacemaker in situ for high degree heart block, Suspected COPD, HTN, AAA, descending TAA, and Anxiety/Depression/Dementia who presents to the ED c/o L sided acute on chronic abdominal pain progressively worsening over the previous 2 days Acute on chronic left sided abdominal pain- is a vasculopath, lactate elevated on admission, worse post-prandial and with lying flat-initially thought to be mesenteric ischemia but CT angiogram of the abdomen and pelvis did not show any significant stenoses of the mesenteric arteries. Lactate normalized after IVFs CT ABD/PEL WITHOUT CONTRAST without significant findings suggesting necrotic bowel, AAA bigger than previous at 4.4 cm but no obvious leak, with chronic focal dissection. No obvious diverticulitis, initially thought to be infectious colitis versus ischemic colitis EGD with esophagitis and esophageal ulcer, with gastritis, with 6 mm gastric polyp that was biopsied---> all pathology negative for dysplasia, esophagus consistent with ulcer, and negative for H. pylori or fungal organisms Much improved on Protonix -Patient declined colonoscopy to complete her evaluation, but is improved on antibiotics and on Protonix. Pain could be from gastritis and esophagitis -Appreciate gastroenterology input -increase PPI to bid and continue for 8-12 weeks -Continue empiric Cipro and Flagyl but switch to po-will finish out by mouth course on discharge for total 7 days - dc Morphine, but continue home dose of Roxicodone 5 mg Q6H which is for her leg pain -continue bowel regimen but this is not likely from constipation -dilated pancreatic duct on CT likely secondary to chronic opioid use Hypokalemia-K+ down to 3.1 -resolved with replacement -replace K+ as needed -follow PRP Constipation: - Senokot 2 tablets HS and Amitiza (patient may use own medication) -Continue daily MiraLAX and when necessary Dulcolax AAA/descending TAA/CAD s/p CABG and TORIN to RCA in 2016/HTN/S/P Pacer for high degree heart block in 2016-CT shows no evidence of acute dissection, AAA is slightly larger than previous at 4.4 cm. TAA is stable at 4.5 cm. -Recommend outpatient vascular surgery follow-up - Discussed the findings with the patient and daughter and they both agree they would not want OPEN surgical intervention for this aneurysm, but are willing to discuss interventional procedures if possible - Continue Aspirin, Plavix 75 mg daily - continue Norvasc 10 mg daily and Lopressor 50 mg BID; held HCTZ due to hypokalemia and dehydration on admission, but restart HCTZ on dc, follow K+ levels with PCP - continue Pravastatin 40 mg daily -Follows routinely with cardiology and is due for pacemaker interrogation in October 2017 PAD-CT angiogram of the abdomen/pelvis showed 50% stenosis within the left proximal to mid common iliac artery. COPD without Exacerbation/Chronic respiratory failure/Former smoker-quit smoking 1 year ago. D-dimer was elevated on admission. CT angiogram of the chest is negative for PE. - Patient reports home O2 and she uses this normally at night - currently appropriate oxygenation without supplemental O2 - Albuterol nebulizers PRN Anxiety/Depression/Dementia: Follows with Psychiatry, stable - Aricept 5 mg daily and Namenda 5 mg daily - Xanax 0.5 mg TID and Remeron 15 mg HS DVT Prophylaxis: Heparin 5000 units SC Q12H Code Status: DO NOT RESUSCITATE Disposition: - Lives with daughter-PT recommends returning home with daughter when medically stable -Discharge to home Total Time Spent: Greater than 30 minutes This includes examination of the patient, discharge planning, medication reconciliation, and communication with other providers. Discharge Instructions Please refer to the electronic Patient Visit Report (Discharge Instructions) for additional information. Follow-Up PCP within 1-2 weeks GI within 1-2 weeks Vascular Surgery within 1 month Additional Copies To Sergio Gerber M.D.; Irene Foster
== END 2017-10-28 18:54 | disposition home or self-care (01) | DRG 381 ==
LOC: EDBD 09:49 → C.EDA 09:50 → C.MED 15:18 → ENRESERV 15:37
PROVIDERS: ADMIT Internal Medicine; ATTEND Family Medicine
PROC: 0HBRXZZ Excision of Toe Nail, External Approach (ICD-10-PCS; 2017-10-25)
PROC: 0DB68ZX Excision of Stomach, Via Natural or Artificial Opening Endoscopic, Diagnostic (ICD-10-PCS; principal; 2017-10-26 15:30)
PROC: 0DB38ZX Excision of Lower Esophagus, Via Natural or Artificial Opening Endoscopic, Diagnostic (ICD-10-PCS; principal; 2017-10-26 15:30)
DX: K22.10 Ulcer of esophagus without bleeding (principal); J96.10 Chronic respiratory failure, unspecified whether with hypoxia or hypercapnia; K29.50 Unspecified chronic gastritis without bleeding; E87.6 Hypokalemia; K59.00 Constipation, unspecified; L03.032 Cellulitis of left toe; B35.1 Tinea unguium; K31.7 Polyp of stomach and duodenum; I25.10 Atherosclerotic heart disease of native coronary artery without angina pectoris; I71.4 Abdominal aortic aneurysm, without rupture; I71.2 Thoracic aortic aneurysm, without rupture; I70.8 Atherosclerosis of other arteries; J44.9 Chronic obstructive pulmonary disease, unspecified; I10 Essential (primary) hypertension; F03.90 Unspecified dementia, unspecified severity, without behavioral disturbance, psychotic disturbance, mood disturbance, and anxiety; F32.9 Major depressive disorder, single episode, unspecified; F41.9 Anxiety disorder, unspecified; Z51.81 Encounter for therapeutic drug level monitoring; Z79.899 Other long term (current) drug therapy; Z79.82 Long term (current) use of aspirin; Z79.02 Long term (current) use of antithrombotics/antiplatelets; Z66 Do not resuscitate; Z95.1 Presence of aortocoronary bypass graft; Z95.5 Presence of coronary angioplasty implant and graft; Z95.0 Presence of cardiac pacemaker; Z87.891 Personal history of nicotine dependence; Z82.49 Family history of ischemic heart disease and other diseases of the circulatory system; Z82.3 Family history of stroke

== ENCOUNTER 2017-11-09 14:03 | Emergency (ER) | payer OTHER ==
[~2017-11-09 14:03] MED LIST changes: +ALPR-411 PO; +CPR500 PO; -DICL-201 PO; -FAMO1TAB68 PO; +LUBI8CAP4 PO; +MTR500 PO; +OXGN; -OXYC1TAB3 PO; +PRT40 PO
[2017-11-09 14:27] VITALS: O2SAT 94
[2017-11-09] MEDS ORDERED: ALPRAZOLAM 0.5 MG TAB PO STA (14:39)
--- NOTE | 2017-11-09 14:41 | EMERGENCY ROOM VISIT NOTE ---
History Report prepared by Conor: Smooth Shelton Under the Supervision of: Dr. Junior Berry D.O. First contact with patient: 14:23 Chief Complaint: RESPIRATORY PROBLEMS Stated Complaint: RESPIRATORY History of Present Illness The patient is a 77 year old female with a pacemaker who presents to the Emergency Room via EMS with complaints of worsening shortness of breath that started earlier today. The patient received a DuoNeb on the way in. Per the patient's family, the patient is shaking a lot. The patient was here recently for abdominal pain associated with an aneurysm. The patient states that she still has this abdominal pain. The patient denies any fevers, cough, or urinary symptoms. Source of History: patient, family Onset: Earlier today Position: other (global - shortness of breath) Timing: worsening Associated Symptoms: + abdominal pain, No fevers, No cough, No urinary symptoms Note: Associated symptoms: Shaking a lot. Review of Systems See HPI for pertinent positives & negatives. A total of 10 systems reviewed and were otherwise negative. Past Medical & Surgical Medical Problems: (1) AAA (abdominal aortic aneurysm) (2) Benzodiazepine withdrawal (3) Ischemic colitis (4) Left flank pain (5) Thoracic aortic aneurysm (6) UTI (urinary tract infection) Family History Hypertension Stroke Social History Smoking Status: Former Smoker Alcohol Use: none Drug Use: none Marital Status: Housing Status: lives with family Occupation Status: retired Current/Historical Medications Scheduled Alprazolam (Xanax), 0.5 MG PO TID Amlodipine Besylate (Norvasc), 10 MG PO DAILY Aspirin (Aspirin Chewable), 81 MG PO DAILY Cholecalciferol (Vitamin D3), 2,000 INTERUNIT PO DAILY Ciprofloxacin (Ciprofloxacin HCl), 500 MG PO BID Clopidogrel (Plavix), 75 MG PO DAILY Cyanocobalamin (Vitamin B-12), 1,000 MCG PO DAILY Donepezil Hydrochloride (Donepezil Hcl), 5 MG PO HS Home O2 Therapy (Oxygen), 2 LITERS NA PRN Hydrochlorothiazide (Hydrochlorothiazide), 12.5 MG PO DAILY Lubiprostone (Amitiza), 8 MCG PO BID Memantine (Namenda), 5 MG PO DAILY Metoprolol Tartrate (Lopressor) (Lopressor), 50 MG PO BID Mirtazapine Soltab (Remeron Soltab), 15 MG PO HS Pantoprazole (Pantoprazole Sodium), 40 MG PO BID Pravastatin Sodium (Pravachol), 40 MG PO DAILY Psyllium (Metamucil Fiber), 1 DOSE PO DAILY Senna/Docusate Sod (Senokot S), 2 TAB PO HS Simethicone (Gas-X Extra Strength), 125 MG PO prn Scheduled PRN Acetaminophen (Tylenol), 500 MG PO UD PRN for Pain Albuterol Sulfate (Proair Respiclick), 2 PUFFS INH Q4 PRN for SOB/Wheezing Bisacodyl (Bisacodyl), 5 MG PO TID PRN for Constipation Allergies Coded Allergies: No Known Allergies (Unverified , 11/09/17) Physical Exam Vital Signs Date Time Temp Pulse Resp B/P (MAP) Pulse Ox O2 Delivery O2 Flow Rate FiO2 11/09/17 16:30 75 19 130/69 96 11/09/17 16:00 71 22 125/72 97 11/09/17 15:30 70 20 125/84 99 11/09/17 15:02 150/74 11/09/17 15:02 92 24 150/74 100 Nasal Cannula 2.0 11/09/17 15:00 81 26 100 11/09/17 15:00 36.5 11/09/17 14:27 94 Nasal Cannula 2.0 11/09/17 14:14 82 32 142/84 100 Nasal Cannula 2.0 11/09/17 14:12 83 11/09/17 14:03 Nasal Cannula 2.0 Physical Exam GENERAL: Patient is awake, alert, mildly anxious appearing but overall comfortable. EYES: The conjunctivae are clear. The pupils are round and reactive. EARS, NOSE, MOUTH AND THROAT: The nose is without any evidence of any deformity. Mucous membranes are moist tongue is midline NECK: The neck is nontender and supple. RESPIRATORY: Lung sounds diminished in the left lung field. No tachypnea or conversational dyspnea noted. CARDIOVASCULAR: Regular rate and rhythm noted there no murmurs rubs or gallops normal S1 normal S2 GASTROINTESTINAL: The abdomen is soft. Bowel sounds are present in all quadrants. Abdomen is nontender MUSCULOSKELETAL/EXTREMITIES: There is no evidence of gross deformity full range of motion is noted in the hips and shoulders SKIN: There is no obvious evidence of any rash. There are no petechiae, pallor or cyanosis noted. NEUROLOGIC: Patient is awake alert and oriented x3. Medical Decision & Procedures ER Provider Diagnostic Interpretation: X-ray results as stated below per interpretation by me and the radiologist. CHEST ONE VIEW PORTABLE CLINICAL HISTORY: EVALUATE RESPIRATORY DISTRESS.DYSPNEA COMPARISON STUDY: Chest CT October 25, 2017. FINDINGS: A dual-lead left subclavian pacemaker is in place. There are mediastinal wires and clips from bypass grafting. Dilatation of the descending thoracic aorta appears unchanged by radiography. Cardiac size is normal. Mediastinal contours are stable. There is no evidence of pulmonary edema. There is no consolidation to suggest pneumonia. The appearance of the chest is unchanged. IMPRESSION: 1. No acute cardiopulmonary findings. 2. No change in appearance of the chest with stable dilatation of the thoracic aorta. Electronically signed by: Shahid Camarillo M.D. 11/09/2017 3:58 PM Dictated Date/Time: 11/09/2017 3:56 PM Laboratory Results 11/09/17 13:45 Red Blood Count 4.75, Mean Corpuscular Volume 86.1, Mean Corpuscular Hemoglobin 29.1, Mean Corpuscular Hemoglobin Concent 33.7, Mean Platelet Volume 9.6, Neutrophils (%) (Auto) 47.8, Lymphocytes (%) (Auto) 38.1, Monocytes (%) (Auto) 9.3, Eosinophils (%) (Auto) 3.6, Basophils (%) (Auto) 0.9, Neutrophils # (Auto) 4.53, Lymphocytes # (Auto) 3.61, Monocytes # (Auto) 0.88, Eosinophils # (Auto) 0.34, Basophils # (Auto) 0.09 11/09/17 13:45 Test 11/09/17 13:45 White Blood Count 9.48 K/uL (4.8-10.8) Red Blood Count 4.75 M/uL (4.2-5.4) Hemoglobin 13.8 g/dL (12.0-16.0) Hematocrit 40.9 % (37-47) Mean Corpuscular Volume 86.1 fL (80-100) Mean Corpuscular Hemoglobin 29.1 pg (25-34) Mean Corpuscular Hemoglobin Concent 33.7 g/dl (32-36) Platelet Count 367 K/uL (130-400) Mean Platelet Volume 9.6 fL (7.4-10.4) Neutrophils (%) (Auto) 47.8 % Lymphocytes (%) (Auto) 38.1 % Monocytes (%) (Auto) 9.3 % Eosinophils (%) (Auto) 3.6 % Basophils (%) (Auto) 0.9 % Neutrophils # (Auto) 4.53 K/uL (1.4-6.5) Lymphocytes # (Auto) 3.61 K/uL (1.2-3.4) Monocytes # (Auto) 0.88 K/uL (0.11-0.59) Eosinophils # (Auto) 0.34 K/uL (0-0.5) Basophils # (Auto) 0.09 K/uL (0-0.2) RDW Standard Deviation 41.7 fL (36.4-46.3) RDW Coefficient of Variation 13.2 % (11.5-14.5) Immature Granulocyte % (Auto) 0.3 % Immature Granulocyte # (Auto) 0.03 K/uL (0.00-0.02) Prothrombin Time 10.3 SECONDS (9.0-12.0) Prothromb Time International Ratio 1.0 (0.9-1.1) Activated Partial Thromboplast Time 26.5 SECONDS (21.0-31.0) Partial Thromboplastin Ratio 1.0 Anion Gap 8.0 mmol/L (3-11) Estimated GFR () 74.5 Estimated GFR (Non- 64.3 BUN/Creatinine Ratio 14.8 (10-20) Calcium Level 8.9 mg/dl (8.5-10.1) Total Bilirubin 0.6 mg/dl (0.2-1) Aspartate Amino Transf (AST/SGOT) 13 U/L (15-37) Alanine Aminotransferase (ALT/SGPT) 13 U/L (12-78) Alkaline Phosphatase 85 U/L (45-117) Total Creatine Kinase 15 U/L (26-192) Creatine Kinase MB < 0.5 ng/ml (0.5-3.6) Creatine Kinase MB Ratio (0-3.0) Troponin I < 0.015 ng/ml (0-0.045) Pro-B-Type Natriuretic Peptide 361 pg/ml (0-1800) Total Protein 7.8 gm/dl (6.4-8.2) Albumin 3.9 gm/dl (3.4-5.0) Globulin 3.9 gm/dl (2.5-4.0) Albumin/Globulin Ratio 1.0 (0.9-2) Laboratory results per my review. Medications Administered Medications (Trade) Dose Ordered Sig/Darlyn Route Start Time Stop Time Status Last Admin Dose Admin Alprazolam (Xanax Tab) 0.5 mg NOW STAT PO 11/09/17 14:39 11/09/17 14:40 DC 11/09/17 15:01 0.5 MG ECG Indication: SOB/dyspnea Rate (beats per minute): 82 Rhythm: other (ventricular pacemaker) Findings: LBBB, other (no chitimacha beats) Change: no significant change (from 10/26/17) ED Course 1435: The patient was evaluated in room A11B. A complete history and physical examination were performed. 1439: Ordered Xanax Tab 0.5 mg PO. 1631: Upon reevaluation, the patient is resting. I discussed the results and treatment plan with her. She verbalized agreement of the treatment plan. She was discharged home. Medical Decision Differential diagnosis: Etiologies such as infections, reactive airway disease, pneumonia, pneumothorax , COPD, CHF, cardiac ischemia, pulmonary embolism, musculoskeletal, gastrointestinal, as well as others were entertained. Nursing notes reviewed. Additional history is obtained from the patient's daughter. The patient is a 77-year-old female who presented to the emergency department for an evaluation of difficulty breathing. The patient is a history COPD. She was treated with a bronchodilator prior to arrival and upon evaluation at the emergency Department she was significantly improved. I discussed the patient's laboratory and radiographic studies with her family members. She has no signs of pneumonia. She was encouraged to continue all medications as prescribed. She was also encouraged to follow-up with her primary care physician this week for reevaluation but return to the emergency department immediately if symptoms change worsen or the need arises. Medication Reconcilliation Current Medication List: was personally reviewed by me Blood Pressure Screening Patient's blood pressure: Elevated blood pressure Blood pressure disposition: Elevated BP felt to be situational Impression Primary Impression: COPD exacerbation Scribe Attestation The scribe's documentation has been prepared under my direction and personally reviewed by me in its entirety. I confirm that the note above accurately reflects all work, treatment, procedures, and medical decision making performed by me. Departure Information Dispostion Home / Self-Care Referrals Irene Foster (PCP) Wilberto Cruz M.D. Patient Instructions COPD, My [facility] Additional Instructions Continue all medications as prescribed. Avoid any strenuous activity. Follow-up with your family this week. Return to the emergency Department immediately if symptoms change worsen or the need arises.
[2017-11-09 15:00] VITALS: TEMP 36.5
[2017-11-09 15:01] LABS: BASO % 0.9 %; BASO ABS # 0.09 K/uL (0-0.2); EOS % 3.6 %; EOS ABS # 0.34 K/uL (0-0.5); HEMATOCRIT 40.9 % (37-47); HEMOGLOBIN 13.8 g/dL (12.0-16.0); IG# 0.03 K/uL (0.00-0.02); LYMPH % 38.1 %; LYMPH ABS # 3.61 K/uL (1.2-3.4); MEAN CELL VOLUME 86.1 fL (80-100); MEAN CORPUSCULAR HEMOGLOBIN 29.1 pg (25-34); MEAN CORPUSCULAR HGB CONC 33.7 g/dl (32-36); MEAN PLATELET VOLUME 9.6 fL (7.4-10.4); MONO % 9.3 %; MONO ABS # 0.88 K/uL (0.11-0.59); NEUT % 47.8 %; NEUT ABS # 4.53 K/uL (1.4-6.5); PLATELET COUNT 367 K/uL (130-400); RED CELL DISTRIBUTION WIDTH CV 13.2 % (11.5-14.5); RED CELL DISTRIBUTION WIDTH SD 41.7 fL (36.4-46.3); WHITE BLOOD COUNT 9.48 K/uL (4.8-10.8)
[2017-11-09 15:12] LABS: PTT PATIENT 26.5 SECONDS (21.0-31.0)
[2017-11-09 15:19] LABS: ALBUMIN 3.9 gm/dl (3.4-5.0); ALT/SGPT 13 U/L (12-78); BLOOD UREA NITROGEN 13 mg/dl (7-18); CALCIUM 8.9 mg/dl (8.5-10.1); CARBON DIOXIDE 32 mmol/L (21-32); CREATININE 0.86 mg/dl (0.60-1.20); GLUCOSE 90 mg/dl (70-99); POTASSIUM 3.3 mmol/L (3.5-5.1); SODIUM 139 mmol/L (136-145)
[2017-11-09 15:25] LABS: ALKALINE PHOSPHATASE 85 U/L (45-117); AST/SGOT 13 U/L (15-37); CKMB < 0.5 ng/ml (0.5-3.6); TOTAL PROTEIN 7.8 gm/dl (6.4-8.2)
--- NOTE | 2017-11-09 15:59 | DIAGNOSTIC IMAGING REPORT ---
CHEST ONE VIEW PORTABLE CLINICAL HISTORY: EVALUATE RESPIRATORY DISTRESS.DYSPNEA COMPARISON STUDY: Chest CT October 25, 2017. FINDINGS: A dual-lead left subclavian pacemaker is in place. There are mediastinal wires and clips from bypass grafting. Dilatation of the descending thoracic aorta appears unchanged by radiography. Cardiac size is normal. Mediastinal contours are stable. There is no evidence of pulmonary edema. There is no consolidation to suggest pneumonia. The appearance of the chest is unchanged. IMPRESSION: 1. No acute cardiopulmonary findings. 2. No change in appearance of the chest with stable dilatation of the thoracic aorta. Electronically signed by: Shahid Camarillo M.D. 11/09/2017 3:58 PM Dictated Date/Time: 11/09/2017 3:56 PM
[2017-11-09 16:30] VITALS: BP 130/69; PULSE 75; O2SAT 96
== END 2017-11-09 16:47 | disposition home or self-care (01) ==
LOC: EDBD 14:03 → C.EDA 14:04
DX: J44.1 Chronic obstructive pulmonary disease with (acute) exacerbation (principal); I71.4 Abdominal aortic aneurysm, without rupture; I71.2 Thoracic aortic aneurysm, without rupture; Z95.0 Presence of cardiac pacemaker; Z79.82 Long term (current) use of aspirin; Z79.02 Long term (current) use of antithrombotics/antiplatelets; Z82.49 Family history of ischemic heart disease and other diseases of the circulatory system; Z82.3 Family history of stroke

== ENCOUNTER 2017-12-01 10:10 | Emergency (ER) | payer OTHER ==
[~2017-12-01] VITALS: Ht 165.1 cm; Wt 73.0 kg
[~2017-12-01 10:10] MED LIST changes: -MTR500 PO
[2017-12-01 10:15] VITALS: TEMP 36.7; O2SAT 98; Ht 165.1 cm; Wt 73.0 kg
[2017-12-01 11:23] LABS: INFLUENZA B ANTIGEN Neg for Influ B (NEG)
[2017-12-01] MEDS ORDERED: ACETAMINOPHEN 500 MG TAB PO STA (11:45)
[2017-12-01] MEDS ORDERED: ONDANSETRON INJ 2 MG/ML 2 ML VIAL IV STA (11:46)
[2017-12-01] MEDS ORDERED: SODIUM CHLORIDE 0.9% 500ML 500 ML IV STA (11:46)
[2017-12-01 12:00] LABS: BASO % 0.8 %; BASO ABS # 0.07 K/uL (0-0.2); EOS % 2.8 %; EOS ABS # 0.25 K/uL (0-0.5); HEMOGLOBIN 13.6 g/dL (12.0-16.0); IG# 0.02 K/uL (0.00-0.02); LYMPH % 29.5 %; MEAN CELL VOLUME 87.2 fL (80-100); MEAN CORPUSCULAR HEMOGLOBIN 28.9 pg (25-34); MEAN CORPUSCULAR HGB CONC 33.2 g/dl (32-36); MONO % 8.5 %; MONO ABS # 0.75 K/uL (0.11-0.59); NEUT % 58.2 %; NEUT ABS # 5.11 K/uL (1.4-6.5); PLATELET COUNT 312 K/uL (130-400); RED CELL DISTRIBUTION WIDTH SD 41.8 fL (36.4-46.3)
[2017-12-01 12:10] LABS: ALBUMIN 3.8 gm/dl (3.4-5.0); ALT/SGPT 15 U/L (12-78); AST/SGOT 12 U/L (15-37); BLOOD UREA NITROGEN 11 mg/dl (7-18); CALCIUM 9.1 mg/dl (8.5-10.1); CARBON DIOXIDE 34 mmol/L (21-32); CREATININE 0.89 mg/dl (0.60-1.20); GLUCOSE 104 mg/dl (70-99); POTASSIUM 3.3 mmol/L (3.5-5.1); SODIUM 138 mmol/L (136-145); TOTAL PROTEIN 7.8 gm/dl (6.4-8.2)
--- NOTE | 2017-12-01 12:10 | DIAGNOSTIC IMAGING REPORT ---
SINGLE VIEW CHEST CLINICAL HISTORY: Generalized weakness. Flulike symptoms. FINDINGS: An AP, portable, upright chest radiograph is compared to study dated 11/09/2017. Correlation is made with abdominal CT dated 10/25/2017. The examination is degraded by portable technique and patient rotation. A 2-lead cardiac pacemaker is unchanged in position and partially obscures the left upper chest. The patient is status post midline sternotomy. The heart is mildly enlarged and there is atherosclerotic calcification of the thoracic aorta. Aneurysmal dilatation of the descending thoracic aorta is unchanged. The pulmonary vasculature is noncongested. Emphysema and chronic interstitial thickening are similar to previous. There is mild elevation of the right hemidiaphragm and right basilar atelectasis. Apical scarring is observed.No airspace consolidation, large pleural effusion, or pneumothorax is seen. The skeletal structures are osteopenic. There are healed left-sided rib fractures. IMPRESSION: 1. Cardiomegaly and cardiac pacemaker. There is no radiographic evidence of congestive failure. 2. Emphysema. 3. No airspace consolidation or pleural effusion is identified. Electronically signed by: Noble Higgins M.D. 12/01/2017 12:09 PM Dictated Date/Time: 12/01/2017 12:07 PM
[2017-12-01 12:19] LABS: ALKALINE PHOSPHATASE 97 U/L (45-117); CKMB 0.6 ng/ml (0.5-3.6)
--- NOTE | 2017-12-01 15:28 | DIAGNOSTIC IMAGING REPORT ---
HEAD CT NONCONTRAST CT DOSE: 537.48 mGy.cm HISTORY: EVALUATE WEAKNESS TECHNIQUE: Multiaxial CT images of the head were performed without the use of intravenous contrast. Automated exposure control was utilized for this study. A dose lowering technique was utilized adhering to the principles of ALARA. Comparison: Head CT 11/27/2016. Findings: Small left mastoid effusion. Retention cyst within the left max a sinus which is partially visualized. The calvarium and skull base are intact. There is no mass, hematoma, midline shift, acute infarct. White matter hypodensity is nonspecific but suggestive of microvascular ischemic change. The ventricles and sulci demonstrate mild age-related involutional changes. Impression: No acute intracranial abnormality. Atrophy and microvascular ischemic changes. Small left mastoid effusion. Electronically signed by: Timoteo Shaffer M.D. 12/01/2017 3:27 PM Dictated Date/Time: 12/01/2017 2:48 PM
--- NOTE | 2017-12-01 15:51 | EMERGENCY ROOM VISIT NOTE ---
History Report prepared by Conor: Baljinder Brice Under the Supervision of: Dr. Saúl Lopez M.D. First contact with patient: 11:09 Chief Complaint: ILLNESS Stated Complaint: GENERALIZED WEAKNESS History of Present Illness The patient is a 77 year old female who presents to the Emergency Room with complaints of generalized weakness that began two days ago. Over this time, the patient has been experiencing a mild headache with chills and diaphoresis. She also notes some sinus congestion, rhinorrhea, and generalized body aches. She denies any known sick contacts. She has a past medical history of an abdominal aneurysm and a pacemaker in place. Pt denies LOC, fevers, visual changes, neck pain, chest pain, breathing difficulties, nausea, vomiting, abdominal pain, back pain, melena, hematochezia, urinary symptoms, numbness, lymphadenopathy, rash, or other complaints. She did not get her influenza immunization. Source of History: patient Onset: two days ago Position: other (Global) Symptom Intensity: moderate Quality: other (Weakness) Timing: constant Associated Symptoms: + chills, + headache, + diaphoresis Note: She has been experiencing rhinorrhea, sinus congestion, and generalized muscle aches. Review of Systems See HPI for pertinent positives and negatives. A total of ten systems were reviewed and were otherwise negative. Past Medical & Surgical Medical Problems: (1) AAA (abdominal aortic aneurysm) (2) Benzodiazepine withdrawal (3) Ischemic colitis (4) Left flank pain (5) Thoracic aortic aneurysm (6) UTI (urinary tract infection) Family History Hypertension Stroke Social History Smoking Status: Former Smoker Alcohol Use: none Drug Use: none Marital Status: Housing Status: lives with family Occupation Status: retired Current/Historical Medications Scheduled Alprazolam (Xanax), 0.5 MG PO TID Amlodipine Besylate (Norvasc), 10 MG PO DAILY Aspirin (Aspirin Chewable), 81 MG PO DAILY Cholecalciferol (Vitamin D3), 2,000 INTERUNIT PO DAILY Ciprofloxacin (Ciprofloxacin HCl), 500 MG PO BID Clopidogrel (Plavix), 75 MG PO DAILY Cyanocobalamin (Vitamin B-12), 1,000 MCG PO DAILY Donepezil Hydrochloride (Donepezil Hcl), 5 MG PO HS Home O2 Therapy (Oxygen), 2 LITERS NA PRN Hydrochlorothiazide (Hydrochlorothiazide), 12.5 MG PO DAILY Lubiprostone (Amitiza), 8 MCG PO BID Memantine (Namenda), 5 MG PO DAILY Metoprolol Tartrate (Lopressor) (Lopressor), 50 MG PO BID Mirtazapine Soltab (Remeron Soltab), 15 MG PO HS Pantoprazole (Pantoprazole Sodium), 40 MG PO BID Pravastatin Sodium (Pravachol), 40 MG PO DAILY Scheduled PRN Albuterol Sulfate (Proair Respiclick), 2 PUFFS INH Q4 PRN for SOB/Wheezing Allergies Coded Allergies: No Known Allergies (Unverified , 12/01/17) Physical Exam Vital Signs Date Time Temp Pulse Resp B/P (MAP) Pulse Ox O2 Delivery O2 Flow Rate FiO2 12/01/17 16:03 76 18 165/87 97 12/01/17 13:39 71 18 140/80 98 Nasal Cannula 2.0 12/01/17 12:22 77 12/01/17 11:39 78 16 161/84 96 Nasal Cannula 2.0 12/01/17 10:15 36.7 79 16 94 Room Air 12/01/17 10:15 98 Nasal Cannula 2.0 12/01/17 10:15 98 Nasal Cannula 2.0 Physical Exam GENERAL: Awake, alert, tired-appearing, in no distress HENT: Normocephalic, atraumatic. Mild nasal congestion. Oropharynx unremarkable. EYES: Normal conjunctiva. Sclera non-icteric. NECK: Supple. No nuchal rigidity. FROM. No JVD. RESPIRATORY: Clear to auscultation. CARDIAC: Regular rate, normal rhythm. Extremities warm and well perfused. Pulses equal. ABDOMEN: Soft, non-distended. No tenderness to palpation. No rebound or guarding. No masses. RECTAL: Deferred. MUSCULOSKELETAL: Chest examination reveals no tenderness. The back is symmetrical on inspection without obvious abnormality. There is no CVA tenderness to palpation. No joint edema. LOWER EXTREMITIES: Calves are equal size bilaterally and non-tender. No edema. No discoloration. NEURO: Normal sensorium. No sensory or motor deficits noted. SKIN: No rash or jaundice noted. Medical Decision & Procedures ER Provider Diagnostic Interpretation: Radiology results as stated below per my review and radiologist interpretation: SINGLE VIEW CHEST CLINICAL HISTORY: Generalized weakness. Flulike symptoms. FINDINGS: An AP, portable, upright chest radiograph is compared to study dated 11/09/2017. Correlation is made with abdominal CT dated 10/25/2017. The examination is degraded by portable technique and patient rotation. A 2-lead cardiac pacemaker is unchanged in position and partially obscures the left upper chest. The patient is status post midline sternotomy. The heart is mildly enlarged and there is atherosclerotic calcification of the thoracic aorta. Aneurysmal dilatation of the descending thoracic aorta is unchanged. The pulmonary vasculature is noncongested. Emphysema and chronic interstitial thickening are similar to previous. There is mild elevation of the right hemidiaphragm and right basilar atelectasis. Apical scarring is observed.No airspace consolidation, large pleural effusion, or pneumothorax is seen. The skeletal structures are osteopenic. There are healed left-sided rib fractures. IMPRESSION: 1. Cardiomegaly and cardiac pacemaker. There is no radiographic evidence of congestive failure. 2. Emphysema. 3. No airspace consolidation or pleural effusion is identified. Electronically signed by: Noble Higgins M.D. 12/01/2017 12:09 PM Dictated Date/Time: 12/01/2017 12:07 PM Laboratory Results 12/01/17 10:55 Red Blood Count 4.70, Mean Corpuscular Volume 87.2, Mean Corpuscular Hemoglobin 28.9, Mean Corpuscular Hemoglobin Concent 33.2, Mean Platelet Volume 10.0, Neutrophils (%) (Auto) 58.2, Lymphocytes (%) (Auto) 29.5, Monocytes (%) (Auto) 8.5, Eosinophils (%) (Auto) 2.8, Basophils (%) (Auto) 0.8, Neutrophils # (Auto) 5.11, Lymphocytes # (Auto) 2.60, Monocytes # (Auto) 0.75, Eosinophils # (Auto) 0.25, Basophils # (Auto) 0.07 12/01/17 10:55 Test 12/01/17 10:25 12/01/17 10:55 12/01/17 12:20 12/01/17 16:00 Influenza Type A Antigen Neg for Influ A (NEG) Influenza Type B Antigen Neg for Influ B (NEG) White Blood Count 8.80 K/uL (4.8-10.8) Red Blood Count 4.70 M/uL (4.2-5.4) Hemoglobin 13.6 g/dL (12.0-16.0) Hematocrit 41.0 % (37-47) Mean Corpuscular Volume 87.2 fL (80-100) Mean Corpuscular Hemoglobin 28.9 pg (25-34) Mean Corpuscular Hemoglobin Concent 33.2 g/dl (32-36) Platelet Count 312 K/uL (130-400) Mean Platelet Volume 10.0 fL (7.4-10.4) Neutrophils (%) (Auto) 58.2 % Lymphocytes (%) (Auto) 29.5 % Monocytes (%) (Auto) 8.5 % Eosinophils (%) (Auto) 2.8 % Basophils (%) (Auto) 0.8 % Neutrophils # (Auto) 5.11 K/uL (1.4-6.5) Lymphocytes # (Auto) 2.60 K/uL (1.2-3.4) Monocytes # (Auto) 0.75 K/uL (0.11-0.59) Eosinophils # (Auto) 0.25 K/uL (0-0.5) Basophils # (Auto) 0.07 K/uL (0-0.2) RDW Standard Deviation 41.8 fL (36.4-46.3) RDW Coefficient of Variation 13.0 % (11.5-14.5) Immature Granulocyte % (Auto) 0.2 % Immature Granulocyte # (Auto) 0.02 K/uL (0.00-0.02) Anion Gap 5.0 mmol/L (3-11) Est Creatinine Clear Calc Drug Dose 51.3 ml/min Estimated GFR () 71.4 Estimated GFR (Non- 61.6 BUN/Creatinine Ratio 12.4 (10-20) Calcium Level 9.1 mg/dl (8.5-10.1) Magnesium Level 2.2 mg/dl (1.8-2.4) Total Bilirubin 0.5 mg/dl (0.2-1) Direct Bilirubin 0.1 mg/dl (0-0.2) Aspartate Amino Transf (AST/SGOT) 12 U/L (15-37) Alanine Aminotransferase (ALT/SGPT) 15 U/L (12-78) Alkaline Phosphatase 97 U/L (45-117) Total Creatine Kinase 13 U/L (26-192) Creatine Kinase MB 0.6 ng/ml (0.5-3.6) Creatine Kinase MB Ratio 4.6 (0-3.0) Troponin I < 0.015 ng/ml (0-0.045) Total Protein 7.8 gm/dl (6.4-8.2) Albumin 3.8 gm/dl (3.4-5.0) Thyroid Stimulating Hormone (TSH) 1.930 uIu/ml (0.300-4.500) Urine Color YELLOW Urine Appearance CLEAR (CLEAR) Urine pH 7.5 (4.5-7.5) Urine Specific [place] 1.018 (1.000-1.030) Urine Protein NEG (NEG) Urine Glucose (UA) NEG (NEG) Urine Ketones NEG (NEG) Urine Occult Blood NEG (NEG) Urine Nitrite NEG (NEG) Urine Bilirubin NEG (NEG) Urine Urobilinogen NEG (NEG) Urine Leukocyte Esterase NEG (NEG) Influenza Type A (RT-PCR) Neg for Influ A (NEG) Influenza Type B (RT-PCR) Neg for Influ B (NEG) Laboratory results reviewed by me Medications Administered Medications (Trade) Dose Ordered Sig/Darlyn Route Start Time Stop Time Status Last Admin Dose Admin Acetaminophen (Tylenol Tab) 1,000 mg NOW STAT PO 12/01/17 11:45 12/01/17 11:46 DC 12/01/17 11:56 1,000 MG Ondansetron HCl (Zofran Inj) 4 mg NOW STAT IV 12/01/17 11:46 12/01/17 11:48 DC 12/01/17 11:56 4 MG Sodium Chloride 500 ml @ 999 mls/hr Q31M STAT IV 12/01/17 11:46 12/01/17 12:16 DC 12/01/17 11:46 999 MLS/HR ECG Indication: weakness Rate (beats per minute): 77 Rhythm: other (Paced) Findings: no acute ischemic change, no ectopy Comparison ECG Date: 11/09/17 Change: no significant change Change: ECG interpreted by me ED Course 1109: The patient was evaluated in room B3. A complete history and physical exam was performed. 1145: Ordered Tylenol Tab 1000 mg PO 1146: Ordered Sodium Chloride 500 ml @ 999 mls/hr IV, Zofran Inj 4 mg IV Medical Decision Prior records/ancillary studies reviewed. Triage Nursing notes reviewed and agree them. Additional history obtained from family. The patient's history was concerning for flu like symptoms.. Differential diagnosis: Etiologies such as bladder, otitis, pharyngitis, pneumonia,meningitis, urinary tract infection, sepsis, bacteremia, viral syndrome, as well as others were entertained. Physical examination: As above. No meningeal findings. Clinically the patient was doing well. She is mildly hypoxic on room air however she uses 2 L nasal cannula oxygen all the time. With 2 L she was in the high 90s. Benign abdomen. ER treatment provided: Tylenol given for the myalgias and minor headache.. On reassessment the patient felt much better. Diagnostics interpreted by me: ECG: Paced rhythm The labs revealed an unremarkable CBC and chem panel. Urinalysis negative. The patient's flu testing was negative. Imaging concerns about her a PCR was done and this was negative. Imaging studies: Chest x-ray as above. Head CT as above. The patient's flu like symptoms and generalized weakness. She did not have any meningeal findings. No evidence of urinary tract infection. I discussed conservative management. This sounds consistent with a viral syndrome. The patient and daughter feel very comfortable with the plan. If She worsens in any way she will come back. By the evaluation outlined above emergent etiologies such as otitis, pharyngitis, pneumonia, meningitis, urinary tract infection, sepsis, bacteremia , as well as others were deemed relatively unlikely. The patient and family were informed about the findings as listed above. All questions were answered and they were pleased with the treatment. Return instructions were outlined and the patient was discharged in stable condition. Outpatient prescription management: None Referral: The patient was referred back to her primary care physician for follow-up in 2 to 3 days for a recheck of the current condition. Medication Reconcilliation Current Medication List: was personally reviewed by me Blood Pressure Screening Patient's blood pressure: Elevated blood pressure Impression Primary Impression: Influenza-like symptoms Additional Impression: Myalgia Scribe Attestation The scribe's documentation has been prepared under my direction and personally reviewed by me in its entirety. I confirm that the note above accurately reflects all work, treatment, procedures, and medical decision making performed by me. Departure Information Dispostion Home / Self-Care Referrals Irene Foster (PCP) Patient Instructions My [facility] Additional Instructions Acetaminophen(Tylenol) may be used for fever or pain. Use 1000mg every six hours as needed. Avoid using more than 4000mg in a 24 hour period. Continue your inhaler of albuterol: Albuterol Inhaler: Take 2 puffs four times daily for seven days, then as prescribed Rest and drink plenty of fluids. Controlling your fever with Tylenol and Ibuprofen as above will make you feel better. Wash your hands after nose blowing, sneezing, or coughing. Most germs are spread through contact, therefore improper hygiene may result in your close contacts and loved ones becoming ill just like you. Return to the ER for severe headache, neck stiffness, chest pain, difficulty breathing, fevers, vomiting, worsening of your condition, or as needed. Follow up with your primary physician this week for a recheck of your current condition. Problem Qualifiers
[2017-12-01 16:03] VITALS: BP 165/87; PULSE 76; O2SAT 97
[2017-12-01 16:54] LABS: INFLUENZA A PCR Neg for Influ A (NEG); INFLUENZA B PCR Neg for Influ B (NEG)
== END 2017-12-01 16:04 | disposition home or self-care (01) ==
LOC: EDBD 10:10 → C.EDC 10:11
DX: I51.7 Cardiomegaly (principal); Z95.0 Presence of cardiac pacemaker; M79.1 Myalgia; J43.9 Emphysema, unspecified; I71.4 Abdominal aortic aneurysm, without rupture; R51 Headache; R61 Generalized hyperhidrosis

== ENCOUNTER 2018-01-13 08:32 | Emergency (ER) | payer OTHER ==
[~2018-01-13] VITALS: Ht 172.7 cm; Wt 75.3 kg
[~2018-01-13 08:32] MED LIST changes: -ACET-1256 PO; -ALBU18002 INH; -AMLO10TA2 PO; -ASPCH81X PO; -BISA1TAB15 PO; -CLOP1TAB15 PO; -CYAN10005 PO; -DONE1TAB11 PO; -LUBI8CAP4 PO; -METO50TA16 PO; -MIRT15TA2 PO; -NMN5 PO; -OXGN; -PRAV40TA PO; -PSYL58.636 PO; -SENN-65 PO; -SIME1CAP PO
[2018-01-13 08:35] VITALS: TEMP 36.3
[2018-01-13] MEDS ORDERED: AMLO10TA2 PO (08:35)
[2018-01-13] MEDS ORDERED: MIRT15TA2 PO (08:35)
[2018-01-13] MEDS ORDERED: METO50TA16 PO (08:35)
[2018-01-13 08:37] VITALS: O2SAT 97
[2018-01-13] MEDS ORDERED: ALPR1TAB3 PO (08:50)
[2018-01-13] MEDS ORDERED: COUGH DROP (SUGAR FREE) LOZ 24 LOZ/1 BOX LOZ STA (08:55)
[2018-01-13] MEDS ORDERED: ALBUT/IPRATROP 3MG/0.5MG NEB 3 ML VIAL INH STA (08:55)
[2018-01-13] MEDS ORDERED: BENZONATATE 100MG CAP PO ONE (09:00)
[2018-01-13 09:15] VITALS: Ht 172.7 cm; Wt 75.3 kg
--- NOTE | 2018-01-13 09:25 | DIAGNOSTIC IMAGING REPORT ---
CHEST ONE VIEW PORTABLE CLINICAL HISTORY: 77 years-old Female presenting with EVALUATE RESPIRATORY DISTRESS.DYSPNEA. TECHNIQUE: Portable upright AP view of the chest was obtained. COMPARISON: 12/01/2017. FINDINGS: The patient is slightly BENGALI rotated. Left subclavian pacer with leads to the right atrium and right ventricular apex. Median sternotomy wires and mediastinal surgical clips unchanged. Atherosclerosis, tortuosity, and prominence of the aortic arch and descending thoracic aorta. Cardiac silhouette mildly enlarged. Persistent elevation of the right hemidiaphragm. Lungs and pleural spaces clear. Multiple old left rib deformities. Upper abdomen normal. IMPRESSION: 1. Cardiomegaly. No evidence of pulmonary edema. 2. Prominence of the thoracic aorta, consistent with known aneurysmal dilatation of the descending thoracic aorta. Electronically signed by: Jagdeep Méndez M.D. 01/13/2018 9:23 AM Dictated Date/Time: 01/13/2018 9:21 AM
--- NOTE | 2018-01-13 09:26 | EMERGENCY ROOM VISIT NOTE ---
History Report prepared by Conor: Max Freeman Under the Supervision of: Dr. Calvin Brown M.D. First contact with patient: 08:36 Stated Complaint: ILLNESS History of Present Illness The patient is a 77 year old white female with a past medical history of COPD, pacemaker placement, ischemic colitis, UTI, and AAA who presents to the ED with a cc of constant cough beginning two days ago. Her cough is non-productive. Positive bilateral ear pain and leg pain. Negative abdominal pain, fevers, chills. Eating and drinking normally. Urinating and defecating normally. No recent medication changes. Former smoker. Patient is on 2 L of supplemental oxygen at home. No flu shot this year. Source of History: patient Onset: Two days ago Symptom Intensity: Non-productive Quality: other (cough) Timing: constant Associated Symptoms: No fevers, No chills, No abdominal pain Note: Positive bilateral ear pain and leg pain. Review of Systems See HPI for pertinent positives and negatives. A total of ten systems were reviewed and were otherwise negative. Past Medical & Surgical Medical Problems: (1) AAA (abdominal aortic aneurysm) (2) Benzodiazepine withdrawal (3) Ischemic colitis (4) Left flank pain (5) Thoracic aortic aneurysm (6) UTI (urinary tract infection) Family History Hypertension Stroke Social History Smoking Status: Former Smoker Alcohol Use: none Drug Use: none Marital Status: Housing Status: lives with family Occupation Status: retired Current/Historical Medications Scheduled Alprazolam (Xanax), 1 MG PO TID Amlodipine Besylate (Norvasc), 10 MG PO DAILY Aspirin (Aspirin Chewable), 81 MG PO DAILY Cholecalciferol (Vitamin D3), 2,000 INTERUNIT PO DAILY Clopidogrel (Plavix), 75 MG PO DAILY Cyanocobalamin (Vitamin B-12), 1,000 MCG PO DAILY Donepezil Hydrochloride (Donepezil Hcl), 5 MG PO HS Home O2 Therapy (Oxygen), 2 LITERS NA PRN Hydrochlorothiazide (Hydrochlorothiazide), 12.5 MG PO DAILY Lubiprostone (Amitiza), 8 MCG PO BID Memantine (Namenda), 5 MG PO DAILY Metoprolol Tartrate (Lopressor) (Lopressor), 50 MG PO BID Mirtazapine Soltab (Remeron Soltab), 15 MG PO HS Pantoprazole (Pantoprazole Sodium), 40 MG PO BID Pravastatin Sodium (Pravachol), 40 MG PO DAILY Scheduled PRN Albuterol Sulfate (Proair Respiclick), 2 PUFFS INH Q4 PRN for SOB/Wheezing Allergies Coded Allergies: No Known Allergies (Unverified , 12/01/17) Physical Exam Vital Signs Date Time Temp Pulse Resp B/P (MAP) Pulse Ox O2 Delivery O2 Flow Rate FiO2 01/13/18 10:00 60 20 138/64 96 Room Air 01/13/18 08:44 62 01/13/18 08:37 97 Nasal Cannula 2.0 01/13/18 08:37 Nasal Cannula 2.0 01/13/18 08:35 36.3 60 22 154/69 88 Room Air Physical Exam GENERAL: Awake, alert, well-appearing, NAD. Nasal canula in place. HENT: Normocephalic, atraumatic. Edentulous. EYES: Normal conjunctiva. Sclera non-icteric. NECK: Supple. No nuchal rigidity. FROM. RESPIRATORY: CTAB, no rhonchi, wheezing, crackles CARDIAC: RRR, no MRG ABDOMEN: Soft, NTND, BS+ MSK: No chest wall TTP. Device in left chest. Midline sternotomy scar. Mild generalized bilateral lower extremity pain. NVI distally. NEURO: GCS 15, CN 2-12 intact, moves all 4s on command SKIN: No rash or jaundice noted. Medical Decision & Procedures ER Provider Diagnostic Interpretation: Radiology results as stated below per my review and radiologist interpretation: CHEST ONE VIEW PORTABLE FINDINGS: The patient is slightly MONTSERRATIAN rotated. Left subclavian pacer with leads to the right atrium and right ventricular apex. Median sternotomy wires and mediastinal surgical clips unchanged. Atherosclerosis, tortuosity, and prominence of the aortic arch and descending thoracic aorta. Cardiac silhouette mildly enlarged. Persistent elevation of the right hemidiaphragm. Lungs and pleural spaces clear. Multiple old left rib deformities. Upper abdomen normal. IMPRESSION: 1. Cardiomegaly. No evidence of pulmonary edema. 2. Prominence of the thoracic aorta, consistent with known aneurysmal dilatation of the descending thoracic aorta. Electronically signed by: Jagdeep Méndez M.D. 01/13/2018 9:23 AM Laboratory Results 01/13/18 09:30 Red Blood Count 4.89, Mean Corpuscular Volume 86.5, Mean Corpuscular Hemoglobin 29.0, Mean Corpuscular Hemoglobin Concent 33.6, Mean Platelet Volume 9.1, Neutrophils (%) (Auto) 59.8, Lymphocytes (%) (Auto) 23.0, Monocytes (%) (Auto) 10.6, Eosinophils (%) (Auto) 5.6, Basophils (%) (Auto) 0.9, Neutrophils # (Auto ) 4.89, Lymphocytes # (Auto) 1.88, Monocytes # (Auto) 0.87, Eosinophils # (Auto ) 0.46, Basophils # (Auto) 0.07 01/13/18 09:30 Test 01/13/18 08:48 01/13/18 09:30 Influenza Type A Antigen Neg for Influ A (NEG) Influenza Type B Antigen Neg for Influ B (NEG) White Blood Count 8.18 K/uL (4.8-10.8) Red Blood Count 4.89 M/uL (4.2-5.4) Hemoglobin 14.2 g/dL (12.0-16.0) Hematocrit 42.3 % (37-47) Mean Corpuscular Volume 86.5 fL (80-100) Mean Corpuscular Hemoglobin 29.0 pg (25-34) Mean Corpuscular Hemoglobin Concent 33.6 g/dl (32-36) Platelet Count 291 K/uL (130-400) Mean Platelet Volume 9.1 fL (7.4-10.4) Neutrophils (%) (Auto) 59.8 % Lymphocytes (%) (Auto) 23.0 % Monocytes (%) (Auto) 10.6 % Eosinophils (%) (Auto) 5.6 % Basophils (%) (Auto) 0.9 % Neutrophils # (Auto) 4.89 K/uL (1.4-6.5) Lymphocytes # (Auto) 1.88 K/uL (1.2-3.4) Monocytes # (Auto) 0.87 K/uL (0.11-0.59) Eosinophils # (Auto) 0.46 K/uL (0-0.5) Basophils # (Auto) 0.07 K/uL (0-0.2) RDW Standard Deviation 43.0 fL (36.4-46.3) RDW Coefficient of Variation 13.6 % (11.5-14.5) Immature Granulocyte % (Auto) 0.1 % Immature Granulocyte # (Auto) 0.01 K/uL (0.00-0.02) Prothrombin Time 9.9 SECONDS (9.0-12.0) Prothromb Time International Ratio 0.9 (0.9-1.1) Activated Partial Thromboplast Time 27.3 SECONDS (21.0-31.0) Partial Thromboplastin Ratio 1.1 Anion Gap 7.0 mmol/L (3-11) Est Creatinine Clear Calc Drug Dose 50.0 ml/min Estimated GFR () 68.6 Estimated GFR (Non- 59.2 BUN/Creatinine Ratio 8.2 (10-20) Calcium Level 8.9 mg/dl (8.5-10.1) Troponin I < 0.015 ng/ml (0-0.045) Pro-B-Type Natriuretic Peptide 803 pg/ml (0-1800) Laboratory results reviewed by me Medications Administered Medications (Trade) Dose Ordered Sig/Darlyn Route Start Time Stop Time Status Last Admin Dose Admin Albuterol/ Ipratropium (Duoneb) 3 ml NOW STAT INH 01/13/18 08:55 01/13/18 08:57 DC 01/13/18 09:15 3 ML Benzonatate (Tessalon Perles Cap) 100 mg NOW ONCE PO 01/13/18 09:00 01/13/18 09:01 DC 01/13/18 09:15 100 MG Menthol (Nice Rehana) 1 rehana NOW STAT REHANA 01/13/18 08:55 01/13/18 08:57 DC 01/13/18 09:15 1 REHANA ECG Per My Interpretation Indication: other (cough) Rate (beats per minute): 60 Rhythm: other (AV duel pacing) Findings: Q waves (inferior and lateral), T-wave inversion (Hilateral leads), left axis deviation, other (Prolonged intervals. ) Comparison ECG Date: 12/01/2017 Change: no significant change ED Course 0842: The patient was evaluated in room B9. A complete history and physical exam was performed. 1021: I reevaluated the patient. Discussed results and discharge instructions: she verbalized understanding and agreement. The patient is ready for discharge. Medical Decision The patient is a 77 year old white female with a past medical history of COPD, pacemaker placement, ischemic colitis, UTI, and AAA who presents to the ED with a cc of constant cough beginning two days ago. Differential diagnosis: Etiologies such as infections, reactive airway disease, pneumonia, pneumothorax , COPD, CHF, cardiac ischemia, pulmonary embolism, musculoskeletal, gastrointestinal, as well as others were entertained. Prior records were reviewed. Patient was seen and evaluated at the bedside along with the family member. Patient does state that she has had a cough as well as some lower extremity discomfort. Patient states that has been ongoing for 2 days. Patient denies any productive cough. Patient does have prior history of COPD last month 1 year prior and is currently on 2 L at home oxygen via nasal cannula at all times. Patient's exam of the lower extremity she does have some generalized lower extremity discomfort however she is neurovascularly intact and does not have any significant swelling. Patient did have blood work completed, EKG, troponin, BNP, chest x-ray, flu swab. Patient was also given medications to help for symptomatic control. Patient's EKG is AV paced without any acute changes. Patient's blood work is fairly unremarkable. Patient white blood cell count within normal limits. Patient troponin negative BNP is not elevated. Flu swab negative. Chest x-ray does show prominence of the aorta which consistent with her prior medical history. Given the patient lacks any chest pain or shortness of breath I do not believe that she requires further workup or treatment. On upon reassessment patient states that she was feeling improved. She did complain of some mild sore throat however the posterior pharynx is clear. Patient was deemed suitable for outpatient follow-up and treatment at this time. I did discuss outpatient remedies to help with sore throat as well as a cough. I do not believe this is a true COPD exacerbation so she was not treated as such and will not receive antibiotics. Patient was given strict follow-up, discharge, and return precautions. All questions were answered. Patient was deemed suitable for outpatient follow-up at this time. Patient agreed with the plan of care and was safely discharged home. Medication Reconcilliation Current Medication List: was personally reviewed by me Blood Pressure Screening Patient's blood pressure: Elevated blood pressure Blood pressure disposition: Elevated BP felt to be situational Impression Primary Impression: Cough Additional Impression: Leg pain, bilateral Scribe Attestation The scribe's documentation has been prepared under my direction and personally reviewed by me in its entirety. I confirm that the note above accurately reflects all work, treatment, procedures, and medical decision making performed by me. Departure Information Dispostion Home / Self-Care Referrals Irene Foster (PCP) Patient Instructions Coughing Techniques, My [facility], Techniques Cough Airway Clear Additional Instructions Please return to the emergency department if you have worsening or recurrent symptoms not amenable to at-home treatment. Please call for a follow-up appointment with her primary care physician. Please take your medications as prescribed. If you have other concerns and/or complaints please feel free to also call your primary care physician's office or return the ED for further evaluation, management, and treatment. You may take tylenol 500 mg every 6 hours as needed for pain. Consider salt water gargles as well as tea with honey and lemon to help with sore throat. You may continue to use the cough medication given to you in the emergency department. You may also use your inhalers for cough. Please follow-up with your PCP. You have been examined and treated today on an emergency basis only. This is not a substitute for, or an effort to provide, complete comprehensive medical care. It is impossible to recognize and treat all injuries or illnesses in a single emergency department visit. It is therefore important that you follow up closely with [facility], your PCP, and/or your specialist(s). Call as soon as possible for an appointment. Thank you for your time and consideration. I look forward to speaking with you again soon. Please don't hesitate to call us if you have any questions. Problem Qualifiers
[2018-01-13 09:36] LABS: INFLUENZA B ANTIGEN Neg for Influ B (NEG)
[2018-01-13 09:44] LABS: BASO % 0.9 %; BASO ABS # 0.07 K/uL (0-0.2); EOS % 5.6 %; EOS ABS # 0.46 K/uL (0-0.5); HEMATOCRIT 42.3 % (37-47); HEMOGLOBIN 14.2 g/dL (12.0-16.0); IG# 0.01 K/uL (0.00-0.02); LYMPH ABS # 1.88 K/uL (1.2-3.4); MEAN CELL VOLUME 86.5 fL (80-100); MEAN CORPUSCULAR HGB CONC 33.6 g/dl (32-36); MEAN PLATELET VOLUME 9.1 fL (7.4-10.4); MONO % 10.6 %; MONO ABS # 0.87 K/uL (0.11-0.59); NEUT % 59.8 %; NEUT ABS # 4.89 K/uL (1.4-6.5); PLATELET COUNT 291 K/uL (130-400); RED CELL DISTRIBUTION WIDTH CV 13.6 % (11.5-14.5); WHITE BLOOD COUNT 8.18 K/uL (4.8-10.8)
[2018-01-13 09:54] LABS: INR 0.9 (0.9-1.1); PTT PATIENT 27.3 SECONDS (21.0-31.0)
[2018-01-13 10:02] LABS: BLOOD UREA NITROGEN 8 mg/dl (7-18); CALCIUM 8.9 mg/dl (8.5-10.1); CARBON DIOXIDE 30 mmol/L (21-32); CREATININE 0.92 mg/dl (0.60-1.20); GLUCOSE 104 mg/dl (70-99); POTASSIUM 3.5 mmol/L (3.5-5.1); SODIUM 139 mmol/L (136-145)
[2018-01-13] MEDS ORDERED: LUBI8CAP4 PO (10:18)
[2018-01-13] MEDS ORDERED: OXGN (10:18)
[2018-01-13 10:37] VITALS: BP 126/71; PULSE 61; O2SAT 94
[2018-01-13] MEDS ORDERED: ALBU18002 INH (10:48)
[2018-01-13] MEDS ORDERED: ASPCH81X PO (10:48)
[2018-01-13] MEDS ORDERED: NMN5 PO (10:48)
[2018-01-13] MEDS ORDERED: DONE5TAB26 PO (10:48)
[2018-01-13] MEDS ORDERED: CLOP1TAB15 PO (10:48)
[2018-01-13] MEDS ORDERED: PRAV40TA PO (12:36)
[2018-01-13] MEDS ORDERED: CYAN10005 PO (16:15)
== END 2018-01-13 10:48 | disposition home or self-care (01) ==
LOC: EDBD 08:32 → C.EDB 08:33
DX: R05 Cough (principal); M79.661 Pain in right lower leg; M79.662 Pain in left lower leg; Z87.891 Personal history of nicotine dependence; Z99.81 Dependence on supplemental oxygen; Z87.440 Personal history of urinary (tract) infections; Z82.49 Family history of ischemic heart disease and other diseases of the circulatory system; Z82.3 Family history of stroke; Z79.01 Long term (current) use of anticoagulants; Z79.899 Other long term (current) drug therapy

== ENCOUNTER 2018-06-04 11:51 | Emergency (ER) | payer OTHER ==
[~2018-06-04] VITALS: Ht 165.1 cm; Wt 78.5 kg
[~2018-06-04 11:51] MED LIST changes: +ALBU18002 INH; -ALPR-411 PO; +ALPR1TAB3 PO; +AMLO10TA2 PO; +ASPCH81X PO; +CLOP1TAB15 PO; -CPR500 PO; +CYAN10005 PO; +DONE5TAB26 PO; +LUBI8CAP4 PO; +METO50TA16 PO; +MIRT15TA2 PO; +NMN5 PO; +OXGN; +PANT1TAB4 PO; +PRAV40TA PO; -PRT40 PO
[2018-06-04 12:12] VITALS: TEMP 37; Ht 165.1 cm; Wt 78.5 kg
[2018-06-04] MEDS ORDERED: METHYLPREDNISOLONE 125 MG VIAL IV STA (12:13)
[2018-06-04] MEDS ORDERED: SODIUM CHLORIDE 0.9% 250ML 250 ML IV STA ×2 (12:13→13:34)
[2018-06-04] MEDS ORDERED: MAGNESIUM SULFATE 1GM / D5W 1 GM BAG IV STA (12:13)
[2018-06-04] MEDS ORDERED: ALBUT/IPRATROP 3MG/0.5MG NEB 3 ML VIAL INH ONE (12:15)
--- NOTE | 2018-06-04 12:18 | EMERGENCY ROOM VISIT NOTE ---
History Report prepared by Conor: Demarco Winn Under the Supervision of: Dr. Nicholas Ruano M.D. First contact with patient: 12:03 Chief Complaint: WEAKNESS Stated Complaint: SOB/WEAKNESS History of Present Illness The patient is a 78 year old female who presents to the Emergency Room with complaints of intermittent SOB and weakness that began yesterday. Patient is present with her daughter. Daughter states she "turned up" the patient's home oxygen from 2L but it did not relieve the symptoms. She adds the patient used a nebulizer treatment which only slightly relieved her trouble breathing. Patient states she is on 2L of oxygen chronically at home. She denies using a CPAP machine at night. She denies taking her oxygen saturation levels at home. Patient adds she has spots on her skin which are not itchy or painful. She states she has a pacemaker. She adds she is a former smoker. Patient denies any sore throat. Source of History: patient, family (Daughter) Onset: Yesterday Position: chest Timing: intermittent Modifying Factors (Relieving): other (Nebulizer) Associated Symptoms: + weakness, No sorethroat Review of Systems See HPI for pertinent positives and negatives. A total of ten systems were reviewed and were otherwise negative. Past Medical & Surgical Medical Problems: (1) AAA (abdominal aortic aneurysm) (2) Benzodiazepine withdrawal (3) Ischemic colitis (4) Left flank pain (5) Thoracic aortic aneurysm (6) UTI (urinary tract infection) Family History Hypertension Stroke Social History Smoking Status: Former Smoker Alcohol Use: none Drug Use: none Marital Status: Housing Status: lives with family Occupation Status: retired Current/Historical Medications Scheduled Alprazolam (Xanax), 1 MG PO TID Amlodipine Besylate (Norvasc), 10 MG PO DAILY Aspirin (Aspirin Chewable), 81 MG PO DAILY Cholecalciferol (Vitamin D3), 2,000 INTERUNIT PO DAILY Clopidogrel (Plavix), 75 MG PO DAILY Cyanocobalamin (Vitamin B-12), 1,000 MCG PO DAILY Donepezil Hydrochloride (Donepezil Hcl), 5 MG PO HS Doxycycline Monohydrate (Monodox), 100 MG PO BID Home O2 Therapy (Oxygen), 2 LITERS NA PRN Hydrochlorothiazide (Hydrochlorothiazide), 12.5 MG PO DAILY Lubiprostone (Amitiza), 8 MCG PO BID Memantine (Namenda), 5 MG PO DAILY Metoprolol Tartrate (Lopressor) (Lopressor), 50 MG PO BID Mirtazapine Soltab (Remeron Soltab), 15 MG PO HS Pravastatin Sodium (Pravachol), 40 MG PO DAILY Prednisone (Prednisone), 3 TAB PO DAILY Sennosides (Senna), 1 CAP PO DAILY Scheduled PRN Albuterol Sulfate (Proair Respiclick), 2 PUFFS INH Q4 PRN for SOB/Wheezing Allergies Coded Allergies: No Known Allergies (Unverified , 06/04/18) Physical Exam Vital Signs Date Time Temp Pulse Resp B/P (MAP) Pulse Ox O2 Delivery O2 Flow Rate FiO2 06/04/18 14:53 64 18 145/63 95 Nasal Cannula 2.0 06/04/18 14:50 63 06/04/18 14:21 61 18 129/56 100 Nasal Cannula 2.0 06/04/18 13:16 61 18 170/66 96 Nasal Cannula 2.0 06/04/18 13:14 65 16 96 Nasal Cannula 2.0 06/04/18 12:58 Nasal Cannula 2.0 06/04/18 12:58 97 2.0 06/04/18 12:12 37.0 64 16 154/80 96 Nasal Cannula 2.0 06/04/18 11:56 60 Physical Exam GENERAL: Awake, alert, chronically ill-appearing, in no distress HENT: Normocephalic, atraumatic. Oropharynx unremarkable. Mucous membranes are dry. EYES: Normal conjunctiva. Sclera non-icteric. NECK: Supple. No nuchal rigidity. FROM. No JVD. RESPIRATORY: Diminished breath sounds at the bases with scattered wheezes otherwise clear to auscultation. CARDIAC: Regular rate, normal rhythm. Extremities warm and well perfused. Pulses equal. ABDOMEN: Soft, non-distended. No tenderness to palpation. No rebound or guarding. No masses. RECTAL: Deferred. MUSCULOSKELETAL: Chest examination reveals no tenderness. The back is symmetrical on inspection without obvious abnormality. There is no CVA tenderness to palpation. No joint edema. LOWER EXTREMITIES: Calves are equal size bilaterally and non-tender. No edema. No discoloration. NEURO: Normal sensorium. No sensory or motor deficits noted. SKIN: No rash or jaundice noted. Medical Decision & Procedures ER Provider Diagnostic Interpretation: Radiology results as stated below per my review and radiologist interpretation: CHEST ONE VIEW PORTABLE CLINICAL HISTORY: CHEST PAIN dyspnea COMPARISON STUDY: 04/23/2018 FINDINGS: Mild stable cardiomegaly. Prior median sternotomy. Lungs are clear. IMPRESSION: Chronic and postoperative change. No acute process. The above report was generated using voice recognition software. It may contain grammatical, syntax or spelling errors. Electronically signed by: Diego Calderon M.D. 06/04/2018 12:40 PM Laboratory Results 06/04/18 12:27 Red Blood Count 4.40, Mean Corpuscular Volume 91.4, Mean Corpuscular Hemoglobin 29.3, Mean Corpuscular Hemoglobin Concent 32.1, Mean Platelet Volume 9.3, Neutrophils (%) (Auto) 68.1, Lymphocytes (%) (Auto) 19.3, Monocytes (%) (Auto) 8.5, Eosinophils (%) (Auto) 3.2, Basophils (%) (Auto) 0.6, Neutrophils # (Auto) 7.35, Lymphocytes # (Auto) 2.08, Monocytes # (Auto) 0.92, Eosinophils # (Auto) 0.34, Basophils # (Auto) 0.06 06/04/18 12:27 Test 06/04/18 11:30 06/04/18 12:27 06/04/18 12:32 Urine Color YELLOW Urine Appearance CLEAR (CLEAR) Urine pH 7.5 (4.5-7.5) Urine Specific [place] 1.005 (1.000-1.030) Urine Protein NEG (NEG) Urine Glucose (UA) NEG (NEG) Urine Ketones NEG (NEG) Urine Occult Blood NEG (NEG) Urine Nitrite NEG (NEG) Urine Bilirubin NEG (NEG) Urine Urobilinogen NEG (NEG) Urine Leukocyte Esterase TRACE (NEG) Urine WBC (Auto) 1-5 /hpf (0-5) Urine RBC (Auto) 0-4 /hpf (0-4) Urine Hyaline Casts (Auto) 1-5 /lpf (0-5) Urine Epithelial Cells (Auto) 20-30 /lpf (0-5) Urine Bacteria (Auto) NEG (NEG) White Blood Count 10.78 K/uL (4.8-10.8) Red Blood Count 4.40 M/uL (4.2-5.4) Hemoglobin 12.9 g/dL (12.0-16.0) Hematocrit 40.2 % (37-47) Mean Corpuscular Volume 91.4 fL (80-100) Mean Corpuscular Hemoglobin 29.3 pg (25-34) Mean Corpuscular Hemoglobin Concent 32.1 g/dl (32-36) Platelet Count 284 K/uL (130-400) Mean Platelet Volume 9.3 fL (7.4-10.4) Neutrophils (%) (Auto) 68.1 % Lymphocytes (%) (Auto) 19.3 % Monocytes (%) (Auto) 8.5 % Eosinophils (%) (Auto) 3.2 % Basophils (%) (Auto) 0.6 % Neutrophils # (Auto) 7.35 K/uL (1.4-6.5) Lymphocytes # (Auto) 2.08 K/uL (1.2-3.4) Monocytes # (Auto) 0.92 K/uL (0.11-0.59) Eosinophils # (Auto) 0.34 K/uL (0-0.5) Basophils # (Auto) 0.06 K/uL (0-0.2) RDW Standard Deviation 46.1 fL (36.4-46.3) RDW Coefficient of Variation 13.9 % (11.5-14.5) Immature Granulocyte % (Auto) 0.3 % Immature Granulocyte # (Auto) 0.03 K/uL (0.00-0.02) Prothrombin Time 10.0 SECONDS (9.0-12.0) Prothromb Time International Ratio 1.0 (0.9-1.1) Anion Gap 4.0 mmol/L (3-11) Est Creatinine Clear Calc Drug Dose 56.0 ml/min Estimated GFR () 77.2 Estimated GFR (Non- 66.6 BUN/Creatinine Ratio 13.7 (10-20) Calcium Level 8.4 mg/dl (8.5-10.1) Phosphorus Level 2.7 mg/dl (2.5-4.9) Magnesium Level 2.6 mg/dl (1.8-2.4) Total Bilirubin 0.4 mg/dl (0.2-1) Direct Bilirubin 0.1 mg/dl (0-0.2) Aspartate Amino Transf (AST/SGOT) 15 U/L (15-37) Alanine Aminotransferase (ALT/SGPT) 17 U/L (12-78) Alkaline Phosphatase 88 U/L (45-117) Troponin I < 0.015 ng/ml (0-0.045) Pro-B-Type Natriuretic Peptide 1089 pg/ml (0-1800) Total Protein 7.7 gm/dl (6.4-8.2) Albumin 3.9 gm/dl (3.4-5.0) Lipase 129 U/L (73-393) Venous Blood pH 7.43 (7.36-7.41) Venous Blood Partial Pressure CO2 50 mmHg (38.0-50.0) Venous Blood Partial Pressure O2 39 mmHg Venous Blood HCO3 32 mmol/L Venous Blood Oxygen Saturation 72.7 % Venous Blood Base Excess 6.8 mEq/L Laboratory results reviewed by me Medications Administered Medications (Trade) Dose Ordered Sig/Darlyn Route Start Time Stop Time Status Last Admin Dose Admin Methylprednisolone Sodium Succinate (Solu-Medrol IV) 125 mg NOW STAT IV 06/04/18 12:13 06/04/18 12:17 DC 06/04/18 12:13 125 MG Albuterol/ Ipratropium (Duoneb) 12 ml ONE ONCE INH 06/04/18 12:15 06/04/18 12:17 DC 06/04/18 12:15 12 ML Magnesium Sulfate (Magnesium Sulfate 1gm / D5W) 2 gm NOW STAT IV 06/04/18 12:13 06/04/18 12:17 DC 06/04/18 12:13 2 GM Sodium Chloride 250 ml @ 999 mls/hr Q16M STAT IV 06/04/18 12:13 06/04/18 12:28 DC 06/04/18 12:13 999 MLS/HR Sodium Chloride 250 ml @ 999 mls/hr Q16M STAT IV 06/04/18 13:34 06/04/18 13:49 DC 06/04/18 13:34 999 MLS/HR Doxycycline Hyclate (Vibramycin Cap) 100 mg ONE STAT PO 06/04/18 13:49 06/04/18 13:50 DC 06/04/18 13:58 100 MG ECG Per My Interpretation Indication: SOB/dyspnea Rate (beats per minute): 60 Rhythm: other (AV dual paced) Findings: no acute ischemic change, no ectopy ED Course 1209: The patient was evaluated in room A10. A complete history and physical exam was performed. 1343: I reevaluated the patient. Discussed results and discharge instructions. She verbalized understanding and agreement. The patient is ready for discharge. Medical Decision I reviewed the patient's past medical history, medications, and the nursing notes as described above. Differential diagnosis: Etiologies such as infections, reactive airway disease, pneumonia, pneumothorax , COPD, CHF, cardiac ischemia, pulmonary embolism, musculoskeletal, gastrointestinal, as well as others were entertained. The patient is an 78-year-old woman with a past medical history of severe COPD on home O2, history of chronic aortic dissection who presents emergency department with worsening congestion and cough and generalized weakness over the past couple of days per hpi. On arrival patient is chronically ill- appearing but no acute distress, afebrile stable vital signs, on her 2 L home O2 at 97%. On exam the patient has diminished breath sounds at the bases with diffuse wheezes. EKG shows paced rhythm without evidence of acute ischemia. Chest x-ray negative for pneumonia. VBG with pH of 7.43 and CO2 of 50. Chemistry unremarkable with possible mild dehydration. UA negative for infection. Patient feeling improved with DuoNeb, steroids, Mg, IV fluid hydration. Sx likely related to COPD exacerbation. Will additionally cover with doxycycline given the patient's sputum production. Plan for PCP follow-up. Findings and plan for follow-up reviewed with patient. Patient agreeable and d/c 'd per discharge instructions. Medication Reconcilliation Current Medication List: was personally reviewed by me Blood Pressure Screening Patient's blood pressure: Elevated blood pressure Blood pressure disposition: Elevated BP felt to be situational Impression Primary Impression: COPD exacerbation Scribe Attestation The scribe's documentation has been prepared under my direction and personally reviewed by me in its entirety. I confirm that the note above accurately reflects all work, treatment, procedures, and medical decision making performed by me. Departure Information Dispostion Home / Self-Care Prescriptions Prednisone (Prednisone) 20 Mg Tab 3 TAB PO DAILY for 4 Days, #12 TAB FOR 4 DAYS Prov: Nicholas Ruano M.D. 06/04/18 Doxycycline Monohydrate (Monodox) 100 Mg Cap 100 MG PO BID for 5 Days, #10 CAP Prov: Nicholas Ruano M.D. 06/04/18 Referrals Irene Foster (PCP) Patient Instructions ED COPD Flare, My [facility] Additional Instructions Please follow up with your primary care physician tomorrow for re-evaluation. Your symptoms are most likely related to a COPD flare. Otherwise, your exam, EKG, chest xray, and lab results did not show signs of an emergent condition at this time. Prednisone as directed. Doxycycline as directed given your sputum production. Use your inhaler or nebulizer every 4 hours for the next 48 hours and then as needed thereafter. Drink plenty of fluids to ensure hydration. Return to the emergency department for worsening symptoms as described in the accompanying instructions.
[2018-06-04 12:39] LABS: BASO % 0.6 %; BASO ABS # 0.06 K/uL (0-0.2); EOS % 3.2 %; EOS ABS # 0.34 K/uL (0-0.5); HEMATOCRIT 40.2 % (37-47); HEMOGLOBIN 12.9 g/dL (12.0-16.0); IG# 0.03 K/uL (0.00-0.02); LYMPH % 19.3 %; LYMPH ABS # 2.08 K/uL (1.2-3.4); MEAN CELL VOLUME 91.4 fL (80-100); MEAN CORPUSCULAR HEMOGLOBIN 29.3 pg (25-34); MEAN CORPUSCULAR HGB CONC 32.1 g/dl (32-36); MEAN PLATELET VOLUME 9.3 fL (7.4-10.4); MONO % 8.5 %; MONO ABS # 0.92 K/uL (0.11-0.59); NEUT % 68.1 %; NEUT ABS # 7.35 K/uL (1.4-6.5); PLATELET COUNT 284 K/uL (130-400); RED CELL DISTRIBUTION WIDTH CV 13.9 % (11.5-14.5); RED CELL DISTRIBUTION WIDTH SD 46.1 fL (36.4-46.3); WHITE BLOOD COUNT 10.78 K/uL (4.8-10.8)
--- NOTE | 2018-06-04 12:41 | DIAGNOSTIC IMAGING REPORT ---
CHEST ONE VIEW PORTABLE CLINICAL HISTORY: CHEST PAIN dyspnea COMPARISON STUDY: 04/23/2018 FINDINGS: Mild stable cardiomegaly. Prior median sternotomy. Lungs are clear. IMPRESSION: Chronic and postoperative change. No acute process. The above report was generated using voice recognition software. It may contain grammatical, syntax or spelling errors. Electronically signed by: Diego Calderon M.D. 06/04/2018 12:40 PM Dictated Date/Time: 06/04/2018 12:39 PM
[2018-06-04 12:58] VITALS: O2SAT 97
[2018-06-04 12:58] LABS: ALBUMIN 3.9 gm/dl (3.4-5.0); ALKALINE PHOSPHATASE 88 U/L (45-117); ALT/SGPT 17 U/L (12-78); AST/SGOT 15 U/L (15-37); BLOOD UREA NITROGEN 11 mg/dl (7-18); CALCIUM 8.4 mg/dl (8.5-10.1); CARBON DIOXIDE 32 mmol/L (21-32); CREATININE 0.83 mg/dl (0.60-1.20); GLUCOSE 99 mg/dl (70-99); LIPASE 129 U/L (73-393); PHOSPHORUS 2.7 mg/dl (2.5-4.9); POTASSIUM 4.1 mmol/L (3.5-5.1); SODIUM 139 mmol/L (136-145); TOTAL PROTEIN 7.7 gm/dl (6.4-8.2)
[2018-06-04 13:14] VITALS: PULSE 65; O2SAT 96
[2018-06-04] MEDS ORDERED: SENN8.6C PO (13:28)
[2018-06-04] MEDS ORDERED: DOXYCYCLINE HYCLATE 100 MG CAP PO STA (13:49)
[2018-06-04] MEDS ORDERED: PRED20TA PO (13:52)
[2018-06-04] MEDS ORDERED: DOXY100C76 PO (13:52)
[2018-06-04 14:53] VITALS: BP 145/63; PULSE 64; O2SAT 95
== END 2018-06-04 15:05 | disposition home or self-care (01) ==
LOC: EDBD 11:51 → C.EDA 11:52
DX: J44.1 Chronic obstructive pulmonary disease with (acute) exacerbation (principal); Z99.81 Dependence on supplemental oxygen; Z95.0 Presence of cardiac pacemaker; Z87.891 Personal history of nicotine dependence; Z87.440 Personal history of urinary (tract) infections; Z79.82 Long term (current) use of aspirin; Z79.02 Long term (current) use of antithrombotics/antiplatelets; Z82.49 Family history of ischemic heart disease and other diseases of the circulatory system; Z82.3 Family history of stroke; Z79.899 Other long term (current) drug therapy; I71.4 Abdominal aortic aneurysm, without rupture; I71.2 Thoracic aortic aneurysm, without rupture